=== PATIENT | male | born 1950 | race Caucasian/White ===

== ENCOUNTER 2017-10-16 15:06 | Inpatient (IN) | payer MEDICARE ==
[2017-10-16 15:44] LABS: Hemoglobin 12.7 g/dL (14.0-18.0); Mean Corpuscular HGB CONC 33.8 g/dL (32.0-36.0); Mean Corpuscular Hemoglobin 30.9 pg (27.0-31.0); Mean Corpuscular Volume 91.5 fl (80.0-94.0); Mean Platelet Volume 6.6 fL (7.4-10.4); Platelet Count 318 thou/uL (130-400); RBC Distribution Width 11.1 % (11.5-14.5); Red Blood Cell (RBC) Count 4.11 mill/uL (4.70-6.10); White Blood Cell (WBC) Count 32.2 thou/uL (4.8-10.8)
[2017-10-16 15:55] LABS: ALT (SGPT) 38 U/L (8-55); AST (SGOT) 30 U/L (5-34); Albumin 3.6 g/dL (3.4-4.8); Alkaline Phosphatase 110 U/L (40-150); Anion Gap 18 mmol/L (10-20); BUN (Urea Nitrogen) 55 mg/dL (8.4-25.7); Bilirubin, Total 4.7 mg/dL (0.2-1.2); CK (CPK) 31 U/L (30-200); Calc. Creatinine Clearance 0 mL/min (70-130); Calcium 9.7 mg/dL (7.8-10.44); Carbon Dioxide 24 mmol/L (23-31); Chloride 93 mmol/L (98-107); Estimated GFR-MDRD 18; Globulin 3.6 g/dL (2.4-3.5); Glucose 207 mg/dL (80-115); Lipase 26 U/L (8-78); Potassium 4.2 mmol/L (3.5-5.1); Protein, Total 7.2 g/dL (5.8-8.1); Sodium 131 mmol/L (136-145)
[2017-10-16 15:59] LABS: CKMB 0.7 ng/mL (0-6.6); Troponin I 0.018 ng/mL (< 0.028)
[2017-10-16 16:00] LABS: Band 14 % (5-11); Lymphocytes 1 % (21-51); MDiff Complete? YES; Monocytes 4 % (0-10); Neutrophil 81 % (42-75); PLT Morphology Comment Appears Adequate; Polychromasia SLIGHT = 2-3 cells (100X) (0-2/hpf)
[2017-10-16] MEDS ORDERED: Norepinephrine 8 MG/0.9% NS 250 ML ONE (16:40)
--- NOTE | 2017-10-16 16:55 | RAD ---
PORTABLE UPRIGHT FRONTAL CHEST RADIOGRAPH 10/16/17 COMPARISON: 01/11/15. HISTORY: Atrial fibrillation, rapid ventricular rate, shortness of breath and chest pain. FINDINGS: There is a single lead AICD in place, inserted via left subclavian approach. There is stable prominen ce of the cardiac silhouette. There is no pneumothorax, pleural fluid, lobar consolidation, or alveol ar edema. There is prominent degenerative change involving bilateral glenohumeral joints. There is an asymmetric somewhat irregular areas of nodular density within the mid right lung zone, no t seen on the prior exam measuring approximately 9 mm. Recommend short term followup PA and lateral c hest imaging as this may represent an underlying pulmonary nodule. IMPRESSION: Question irregular 9 mm nodule in mid right lung zone. Results called to Dr. Robison at 4 p.m., 10/16/17. Code CR POS: JASON
[2017-10-16] MEDS ORDERED: Azithromycin 500 MG VIAL ONE (17:03)
[2017-10-16] MEDS ORDERED: Dexamethasone 4 mg/ml Vial ONE (17:18)
[2017-10-16] MEDS ORDERED: Acetaminophen 500 MG TAB ONE (17:38)
--- NOTE | 2017-10-16 18:16 | PDOC.EVN ---
Event Note - Event Note Event Note: [id number] H&P dictated 1. ADAN 2. Septic shock 3. Hypotension 4. Pneumonia 5. Sepsis Plan: see orders
--- NOTE | 2017-10-16 18:27 | RAD ---
PORTABLE UPRIGHT FRONTAL CHEST RADIOGRAPH 10/16/17 at 4:39 p.m. COMPARISON: 10/16/17, 3:44 p.m. HISTORY: Central line placement. FINDINGS: Left sided vascular catheter in place, distal tip overlie the region of the cavoatrial junction. There is a nodular density in the mid left lung zone laterally measuring approximately 9-10 mm as see n on the prior exam. Cardiac silhouette is prominent with a single lead transvenous pacing device in place. IMPRESSION: 1. No pneumothorax following central line placement. 2. 9-10 mm nodular density identified within mid right lung zone, new when compared to 01/11/15. Thus, nonemergent followup chest CT is advised to evaluate for an underlying pulmonary nodule. Code T POS: JASON
[2017-10-16] MEDS ORDERED: Ondansetron HCl/PF 4 MG/2 ML Vial IVP PRN (18:36)
[2017-10-16] MEDS ORDERED: Acetaminophen 325 MG TAB PO PRN (18:36)
[2017-10-16] MEDS ORDERED: Norepinephrine 8 MG/0.9% NS 250 ML IVPB SCH (18:45)
[2017-10-16 19:48] VITALS: BMI 30.4
[2017-10-16 19:54] LABS: Troponin I 0.033 ng/mL (< 0.028)
[2017-10-16] MEDS: Sodium Chloride 0.9% 1,000 ML IV SCH (20:01)
[2017-10-16] MEDS ORDERED: Heparin 5,000 UNITS/ML VIAL SC SCH (21:00)
[2017-10-16 22:28] LABS: Troponin I Less than 0.010 ng/mL (< 0.028)
[2017-10-17 04:27] LABS: Anion Gap 15 mmol/L (10-20); BUN (Urea Nitrogen) 50 mg/dL (8.4-25.7); Calc. Creatinine Clearance 37 mL/min (70-130); Calcium 9.2 mg/dL (7.8-10.44); Carbon Dioxide 23 mmol/L (23-31); Chloride 100 mmol/L (98-107); Estimated GFR-MDRD 27; Glucose 247 mg/dL (80-115); Potassium 3.9 mmol/L (3.5-5.1); Sodium 134 mmol/L (136-145)
[2017-10-17 04:31] LABS: Band 12 % (5-11); Hemoglobin 12.7 g/dL (14.0-18.0); Lymphocytes 5 % (21-51); MDiff Complete? YES; Mean Corpuscular HGB CONC 33.3 g/dL (32.0-36.0); Mean Corpuscular Hemoglobin 30.7 pg (27.0-31.0); Mean Platelet Volume 6.8 fL (7.4-10.4); Monocytes 5 % (0-10); Neutrophil 78 % (42-75); PLT Morphology Comment Appears Adequate; Platelet Count 365 thou/uL (130-400); RBC Distribution Width 11.2 % (11.5-14.5); Red Blood Cell (RBC) Count 4.15 mill/uL (4.70-6.10); White Blood Cell (WBC) Count 24.4 thou/uL (4.8-10.8)
[2017-10-17] MEDS: Sodium Chloride 0.9% 1,000 ML IV SCH ×2 (06:03→21:28)
--- NOTE | 2017-10-17 08:24 | HP ---
DATE OF ADMISSION: 10/16/2017 CHIEF COMPLAINT: Atrial fibrillation, rapid ventricular response. HISTORY OF PRESENT ILLNESS: The patient is a 67-year-old male with a past medical history of hypertension, coronary artery disease, nonischemic cardiomyopathy, V-tach, atrial fibrillation. Initially, he went to the primary care physician because of the fever, chills, cough, and sputum production. In the primary care physician's office, patient was found to be hypotensive and in atrial fibrillation, RVR, so patient was referred to here for further evaluation. The patient complains of cough for the past few days, cough was with sputum production, sputum green in color. Complains of some fever and chills, also complains of chest congestion. Denies any chest pains, palpitations. Denies any nausea, denies vomiting. Upon ER arrival, the patient was found to be hypotensive, had elevated heart rate, so patient was given fluid bolus and I was called for the admission and the patient is currently on Levophed. Patient denies any chest pain, denies any palpation. Denies any dizziness, denies any nausea, denies any vomiting, denies any diarrhea. PAST MEDICAL HISTORY: As per HPI. PAST SURGICAL HISTORY: AICD. ALLERGIES: Reviewed. MEDICATIONS: Reviewed. SOCIAL HISTORY: Denies smoking, denies alcohol, denies any drugs. MEDICATIONS: Reviewed. REVIEW OF SYSTEMS: CONSTITUTIONAL: Positive for fever and chills. EYES: Vision problems. EARS: Denies any hearing loss. NECK: Denies any neck pain. CARDIOVASCULAR: Denies any chest pain, denies palpitations. RESPIRATORY: Positive for dyspnea. Positive for cough and sputum production. CRANIAL NERVE SYSTEM: Denies syncope, denies lightheadedness. PSYCHIATRIC: Denies anxiety. INTEGUMENTARY: Denies any rash. All other review of systems are reviewed and are negative. PHYSICAL EXAMINATION: CONSTITUTIONAL/VITAL SIGNS: At the time of H&P performed, blood pressure is 80/ 50, heart rate 115, and respiratory rate 18. GENERAL: The patient appears tired. HEENT: Anterior nares patent. NECK: Supple, no JVD. CARDIOVASCULAR SYSTEM: S1, S2 present, tachycardic. No murmurs, no rubs, no gallops. RESPIRATORY SYSTEM: Positive for wheezing. Positive for rhonchi. No accessory muscle usage seen ABDOMEN: Soft, nontender, no guarding, no organomegaly, no masses felt. MUSCULOSKELETAL: No edema. INTEGUMENTARY: No obvious rashes seen. PSYCHIATRIC: Mood appropriate at this time. INTEGUMENT: No obvious rash seen LABORATORY DATA: At the time of H&P performed, sodium 131, potassium 4.2, chloride 93, CO2 of 24, BUN of 55, creatinine 3.50, AST 30, ALT 38, troponin 0.018, BNP 190. White count 32.2, hemoglobin 12.7, platelet count is 318. ASSESSMENT AND PLAN: The patient is 67-year-old male. 1. Sepsis. Chest x-ray showed possible infiltrate. Plan to go ahead and do CT chest to evaluate the infiltrate. Plan to start patient on broad spectrum antibiotics. Plan to admit patient to ICU for close monitoring. 2. Hypotension secondary to the septic shock. Continue with iv fluids, consult Pulmonary Critical Care to evaluate the patient. 3. We will go ahead and do blood cultures and we will check serial lactic acid also. 4. Acute kidney injury, it appears secondary to hypotension, possibly acute tubular necrosis. Continue IV fluids, check BMP in a.m. Plan to consult Nephrology to eval the patient. 5. History of congestive heart failure. Monitor I's and O's closely with the patient having history of congestive heart failure. We will need to monitor respiratory status closely, also. 6. Mild hyponatremia. Monitor sodium level closely. The case was discussed in detail with the patient. The patient is going to be admitted to the ICU for close monitoring. BRIDGET
[2017-10-17] MEDS ORDERED: Prevnar 13-Val Conj/PF 0.5 ML SYRINGE IM ONE (09:00)
[2017-10-17] MEDS: guaiFENesin ER 600 MG TAB PO SCH ×2 (09:42→21:26)
--- NOTE | 2017-10-17 11:16 | CON ---
DATE OF CONSULTATION: 10/16/2017 HISTORY OF PRESENT ILLNESS: Mr. Dumont is a 67-year-old male who presented with cough and shortness of breath. This has actually been feeling poorly for many days. 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 He also had multiple family members with viral illnesses recently. He presented with hypotension, cough, and chest congestion. He subsequently has been admitted. He has received central line volume resuscitation, pressures, and antibiotics in the emergency department. PAST MEDICAL HISTORY: 1. Remarkable for atrial fibrillation. He has had an atrial fibrillation ablation done in [place] that resolved, back in atrial fibrillation before he even left the hospital. He never went back for further followup. 2. History of placement of defibrillator in the past. 3. History of methicillin-resistant Staphylococcus aureus in the past. 4. History of hypertension. 5. History of heart catheterization in the past. He has been seen by Dr. Ochoa in the past. 6. History of V-tach in the past which led to an AICD. 7. History of nonischemic cardiomyopathy. 8. History of ejection fraction in 2015 documented to be 10% to 15%. 9. History of knee surgery. SOCIAL HISTORY: He is a nonsmoker, nondrinker. Quit smoking 30 years ago when his [id number] picked up his cigarette and ate it after he put it out. FAMILY HISTORY: Negative for lung disease in early age. ALLERGIES: Reports an allergy to PENICILLIN. REVIEW OF SYSTEMS: Twelve-point is otherwise negative. PHYSICAL EXAMINATION: VITAL SIGNS: Blood pressure was 95 systolic in the emergency department, heart rate was 105 to 110. He is in atrial fibrillation, respiratory rate was in the teens. HEENT: Pupils are equal. Sclerae is anicteric, very pleasant. He is hard of hearing. NECK: Supple, he has no lymphadenopathy. LUNGS: Remarkable for being clear anteriorly. HEART: Irregular rhythm. S1 and S2 are normal. ABDOMEN: Soft and nontender. EXTREMITIES: Without clubbing, cyanosis, or edema. NEUROLOGIC: Nonfocal. LABORATORY AND X-RAY FINDINGS: Chest radiograph maybe shows an early infiltrate in his right middle lung field. Lab work shows white count of 32, manual differential was done, he has 14% bands , hemoglobin 12.7, platelets 318. Electrolytes: Sodium 131, potassium 4.2, chloride 93, bicarbonate 24, BUN 65, creatinine 3.5. IMPRESSION: 1. Probable pneumonia. 2. Intravascular volume depletion. 3. History of nonischemic cardiomyopathy with no recent cardiac followup. 4. History of ventricular tachycardia. 5. History of defibrillator. 6. History of an atrial fibrillation ablation that was unsuccessful. 7. Chronic atrial fibrillation with anticoagulation. PLAN: Antibiotics, repeat radiograph in 1-2 days to see if he has developed an infiltrate, await for culture results and then simplify antibiotics. He should be admitted to the ICU because of his pressor requirements, I do not feel that his hypotension is related to his cardiomyopathy. Critical care time 35 min. BRIDGET
--- NOTE | 2017-10-17 11:31 | CON ---
DATE OF CONSULTATION: 10/16/2017 CONSULTING PHYSICIAN: Dr. Horacio Felix. REASON FOR CONSULTATION: Acute kidney injury. REASON FOR ADMISSION: Shortness of breath and cough. HISTORY OF PRESENT ILLNESS: A 67-year-old male with history of chronic atrial fibrillation, MRSA, hy pertension who came to the hospital with cough and was found to have acute kidney injury. Nephrology is consulted. The patient is hypotensive and is being treated for sepsis. He had some fever, chill s, and ear pain too. PAST MEDICAL HISTORY: Positive for chronic atrial fibrillation, hypertension, CHF. PAST SURGICAL HISTORY: Cardiac catheterization, AICD defibrillator. HOME MEDICATIONS: Carvedilol, Lasix, lisinopril, diltiazem, spironolactone. ALLERGIES: PENICILLIN. SOCIAL HISTORY: Denies smoking, alcohol or illicit drug abuse. FAMILY HISTORY: No history of kidney disease. REVIEW OF SYSTEMS: The following complete review of systems was negative, unless otherwise mentioned in the HPI or below: Constitutional: Weight loss or gain, ability to conduct usual activities. Skin: Rash, itching. Eyes: Double vision, pain. ENT/Mouth: Nose bleeding, neck stiffness, pain, tenderness. Cardiovascular: Palpitations, dyspnea on exertion, orthopnea. Respiratory: Shortness of breath, wheezing, cough, hemoptysis, fever or night sweats. Gastrointestinal: Poor appetite, abdominal pain, heartburn, nausea, vomiting, constipation, or diarr hea. Genitourinary: Urgency, frequency, dysuria, nocturia. Musculoskeletal: Pain, swelling. Neurologic/Psychiatric: Anxiety, depression. Allergy/Immunologic: Skin rash, bleeding tendency. PHYSICAL EXAMINATION: GENERAL: This is a well-built male, in no apparent distress. VITAL SIGNS: Temperature 98.1, pulse , blood pressure 94/65. HEENT: Atraumatic, normocephalic. Oral mucosa is moist. NECK: Supple. CARDIOVASCULAR: S1, S2 heard. Rate and rhythm regular. RESPIRATORY: Clear. ABDOMEN: Soft. MUSCULOSKELETAL: 1+ edema. DERMATOLOGIC: No skin rash. NEUROLOGIC: Alert and awake. PSYCHIATRIC: Mood and affect normal. LABORATORY DATA: Hemoglobin is 12.7, potassium 4.2, BUN is 65, creatinine 3.5. ASSESSMENT AND PLAN: 1. Acute kidney injury on chronic kidney disease, most likely ischemic , agree with holding nep hrotoxins and hydration as tolerated. Keep systolic more than 90. 2. Hyponatremia. 3. Hypochloremia. 4. Leukocytosis, most likely from infection. 5. Anemia. 6. Hypertension, stable. 7. Currently, hypotensive. 8. Continue supportive care. Continue antibiotics. Follow up cultures and avoid nephrotoxins. We will follow. Thank you for the consult. Monitor vancomycin level.
[2017-10-17] MEDS ORDERED: Cosyntropin 250 MCG VIAL SLOW IVP SCH (11:45)
--- NOTE | 2017-10-17 12:00 | PRG ---
DATE OF SERVICE: 10/17/2017 Mr. Dumont says he feels better. PHYSICAL EXAMINATION: VITAL SIGNS; Heart rate 103, blood pressure 140/94, respiratory 25, oximetry is 100%. LUNGS: Lungs are clear. HEART: Regular rhythm. ABDOMEN: Abdomen is soft and nontender. He is still on a low dose of Levophed. His intake and output is positive 318. LABORATORY: White count 24.4 He has 12% bands today. Hemoglobin is 12.7, platelets are 165,000. S odium 134, potassium 3.9, chloride 100, bicarbonate 23, BUN 50, creatinine 2.41 down from 3.5 yesterd ay. IMPRESSION: 1. Probable pneumonia. 2. Intravascular volume depletion with an elevated creatinine that is improving with hydration. He had been sick quite some time before he was brought to the emergency room. He has underlying ischemic cardiomyopathy and a defibrillator in place. He has not seen Dr. Jen cohen in quite some time. Because of his health care ([facility]) he was going to [place] for care. He i s no longer going down to [place], so we I have recommended reconsulting Cardiology while he is here. An echocardiogram has been ordered. He will continue with broad antimicrobial therapy until we hav e 48 hour negative cultures. He will remain in the ICU until he is off pressors for 12-24 hours, so hopefully we can discharge him out of the ICU in the morning.
--- NOTE | 2017-10-17 12:01 | PRG ---
DATE OF SERVICE: 10/17/2017 Cortisol was run this morning and his level was only 8. In the setting of pressors, this may be balta cative of relative adrenal insufficiency. I would simply recommend doing an ACTH stimulation test an d continue current care.
[2017-10-17 12:21] LABS: Vancomycin, Random 6.7 ug/mL (See Comment)
--- NOTE | 2017-10-17 13:57 | PDOC.PN ---
- Subjective Encounter Start Date: 10/17/17 Encounter Start Time: 12:45 Subjective: awake, sob+, no chest pain -: feels better - Objective MAR Reviewed: Yes Vital Signs & Weight: Vital Signs (12 hours) Temp Pulse Resp Pulse Ox 10/17/17 12:00 96.7 F L 10/17/17 08:00 97.5 F L 100 18 100 Weight Weight 188 lb 14.978 oz Most Recent Monitor Data Heart Rate from ECG 101 NIBP 104/73 NIBP BP-Mean 85 Respiration from ECG 25 SpO2 93 I&O: 10/16/17 10/17/17 10/18/17 06:59 06:59 06:59 Intake Total 1218 353 Output Total 900 650 Balance 318 -297 Result Diagrams: 10/17/17 04:08 10/17/17 04:08 Phys Exam - Physical Examination HEENT: PERRLA, moist MMs Neck: no JVD, supple Respiratory: no wheezing rhonchi++ Cardiovascular: no significant murmur, irregular Gastrointestinal: soft, non-tender, positive bowel sounds Musculoskeletal: no edema, pulses present Neurological: non-focal, moves all 4 limbs Psychiatric: A&O x 3 Dx/Plan (1) Septic shock Code(s): A41.9 - SEPSIS, UNSPECIFIED ORGANISM; R65.21 - SEVERE SEPSIS WITH SEPTIC SHOCK Status: Acute (2) PNA (pneumonia) Code(s): J18.9 - PNEUMONIA, UNSPECIFIED ORGANISM Status: Suspected Qualifiers: Pneumonia type: due to unspecified organism (3) ADAN (acute kidney injury) Code(s): N17.9 - ACUTE KIDNEY FAILURE, UNSPECIFIED Status: Acute (4) DM type 2 (diabetes mellitus, type 2) Status: Chronic Qualifiers: Diabetes mellitus 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 insulin use: without jail use Diabetes mellitus complication status: with unspecified complications Qualified Code(s) : E11.8 - Type 2 diabetes mellitus with unspecified complications (5) Demand ischemia of myocardium Code(s): I24.8 - OTHER FORMS OF ACUTE ISCHEMIC HEART DISEASE Status: Acute (6) Cardiomyopathy Code(s): I42.9 - CARDIOMYOPATHY, UNSPECIFIED Status: Suspected Qualifiers: Cardiomyopathy type: unspecified Qualified Code(s): I42.9 - Cardiomyopathy , unspecified - Plan is on vanc and levaquin -: gentle iv hydration -: is on tapering levophed -: wbc down to 24 from 32 -: nebs prn, creatinine around 2.4, early ambulation once BP stabilizes * . Review of Systems - Medications/Allergies Allergies/Adverse Reactions: Allergies Allergy/AdvReac Type Severity Reaction Status Date / Time Penicillins Allergy Verified 10/16/17 20:56 Medications: Current Medications Acetaminophen (Tylenol) 650 mg PO Q4H PRN PRN Reason: Headache/Fever or Pain Hydrocodone Bitart/Acetaminophen ([place] 5/325) 1 tab PO Q4H PRN PRN Reason: Moderate Pain (4-6) Guaifenesin (Mucinex) 600 mg PO Q12HR YOLANDA Last Admin: 10/17/17 09:42 Dose: 600 mg Levofloxacin 500 mg/ Device 100 mls @ 100 mls/hr IVPB Q48H YOLANDA Norepinephrine Bitartrate (Levophed) 250 mls @ 0 mls/hr IVPB INF YOLANDA; Titrate PRN Reason: Protocol Last Admin: 10/17/17 03:00 Dose: 250 mls Sodium Chloride (Normal Saline 0.9%) 1,000 mls @ 75 mls/hr IV .[id number] YOLANDA Last Admin: 10/17/17 06:03 Dose: 1,000 mls Vancomycin HCl 1 gm/ Device 200 mls @ 200 mls/hr IVPB 1400 YOLANDA Ondansetron HCl (Zofran) 4 mg IVP Q6H PRN PRN Reason: Nausea/Vomiting Sodium Chloride (Flush - Normal Saline) 10 ml IVF Q12HR YOLANDA Last Admin: 10/17/17 08:15 Dose: 10 ml Sodium Chloride (Flush - Normal Saline) 10 ml IVF PRN PRN PRN Reason: Saline Flush
--- NOTE | 2017-10-17 14:15 | CON ---
DATE OF CONSULTATION: 10/17/2017 CARDIOLOGY CONSULTATION REASON FOR CONSULTATION: Cardiomyopathy. HISTORY OF PRESENT ILLNESS: Mr. Dumont is a very pleasant 67-year-old white gentleman who comes to the hospital for shortness of breath and cough. He was diagnosed with possibly pneumonia and admitt ed to the ICU as his blood pressure was low and was needing Levophed to maintain his blood pressures normal. He used to see Dr. Ochoa. Last time he saw him was in 2014. Because of insurance, he h ad to switch to have adjuster and inspector in [place] who saw him for the last 2-3 years. 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 He also has a history of atrial fibrillation and atrial tachycardia in the past. Apparently, he had an atrial fibrillation ablation in [place] sometime in last 3 years and went back into atrial fibrill ation soon after and has not had a repeat ablation since. Cardiology being consulted today for guanakito nuation of care as he has since switched his insurance and is ready to come back to this area and wou ld like to continue to see Dr. Ochoa. Currently, he is being treated with antibiotics for his possible pneumonia. PAST MEDICAL HISTORY: 1. History of atrial fibrillation, as above. 2. AICD placement. 3. Methicillin-resistant Staphylococcus aureus in the recent past. 4. Nonischemic cardiomyopathy, EF of about 15%-20%. 5. Hypertension. 6. VT in the past. 7. History of knee surgery. OUTPATIENT MEDICATIONS: Include, 1. Aldactone 25 mg a day. 2. Xarelto 20 mg a day. 3. Lisinopril 2.5 mg a day. 4. Lasix 20 mg b.i.d. 5. Diltiazem 120 mg b.i.d. 6. Carvedilol 12.5 mg b.i.d. ALLERGIES: PENICILLIN. SOCIAL HISTORY: No alcohol, tobacco or drugs. He did quit smoking 30 years ago. FAMILY HISTORY: Noncontributory. REVIEW OF SYSTEMS: A 12 point review of systems negative, unless stated in the history of present il lness. PHYSICAL EXAMINATION: VITAL SIGNS: Temperature 96.7, pulse between 90 and 108, blood pressure 111/77, respiration rate 21, satting 100% on 2 liters nasal cannula. GENERAL: Awake, alert, oriented x3, in no distress. HEENT: Normocephalic, atraumatic. NECK: Supple. LUNGS: Clear anteriorly. ABDOMEN: Soft, positive bowel sounds. EXTREMITIES: No edema. SKIN: Warm and dry. LABORATORY DATA AND IMAGING DATA: Laboratory work was reviewed. White count of 32, on admission minal n to 24. Hemoglobin of 12.7, hematocrit of 37, platelet count of 318. Chemistry with BUN of 50, cre atinine 2.41. Sodium 134, potassium 3.9, troponin has been 0.01, 0.03, 0.01. CK-MB of 0.7. BNP was 190. His creatinine has improved from 3.5 down to 2.4, random vancomycin level was normal. Chest x-ray on admission showed no evidence of heart failure. There was irregular nodule in the mid right lung zone. Repeat chest x-ray showed no pneumothorax after central line was placed and the same right mid lung z one nodular density was seen. ASSESSMENT AND PLAN: 1. Nonischemic cardiomyopathy. 2. Presence of an automated implantable cardioverter-defibrillator. 3. Atrial fibrillation with rapid ventricular response: Currently on no AV parth blocking agents gi adryan his low blood pressure and possibly due to pneumonia. 4. Possible pneumonia. PLAN: 1. Currently, his heart rate is what we would catalogue as leniently rate controlled, which should b e adequate in the setting of having pneumonia and being hypotensive. Most likely this is being drive n by the fact that he is on Levophed drip and that he cannot be on any AV parth blocking agents given hypotension. I would not start amiodarone at this time for rate control. I do not think he needs d igoxin just yet. We will just leave this if he becomes more tachycardic and we are unable to control it. Once he comes off of his Levophed, we will plan on restarting some of his oral beta juvencio and calcium channel juvencio to try to rate control him a little bit better. 2. I agree with IV fluids. 3. Echocardiogram to be done. Thank you for letting us to participate in the care of your patient and we will follow with the patie nt.
[2017-10-17] MEDS: Vancomycin HCl 1 GM in Premix Bag 1 BAG IVPB SCH (14:20)
[2017-10-17] MEDS ORDERED: Carvedilol 6.25 MG TAB PO SCH ×2 (21:00→21:30)
--- NOTE | 2017-10-18 00:32 | PRG ---
DATE OF SERVICE: 10/17/2017 SUBJECTIVE: Patient was seen and examined at bedside and overnight events noted. Patient denies any shortness of breath or chest pain or palpitation. No history of nausea or vomiting or diarrhea or f ever or chills or cramps. OBJECTIVE: GENERAL: This is a well-built male, in no acute distress. VITAL SIGNS: Temperature 96.3, pulse 107, respirations 20, blood pressure 105/60. HEENT: Atraumatic, normocephalic, Oral mucosa is moist. NECK: Supple. CARDIOVASCULAR: S1, S2 heard. Rate and rhythm regular. RESPIRATORY: Clear to auscultation. GASTROINTESTINAL: Abdomen is soft. MUSCULOSKELETAL: No tenderness, no edema. DERMATOLOGIC: No skin rash. NEUROLOGIC: Alert and awake and oriented X3. No focal neurologic deficits. Moving all the extremit ies. PSYCHIATRIC: Mood and affect normal. LABORATORY DATA: Hemoglobin is still 7, potassium is 3.9, BUN 50, creatinine is 2.4 from 3.5. ASSESSMENT AND PLAN: 1. Acute kidney injury. Renal function is much better, most likely from volume depletion and sepsis . Continue supportive care. 2. Hyponatremia. 3. Hypokalemia. 4. Anemia. 5. Hypertension. Overall, renal function is better. Continue current antibiotics.
--- NOTE | 2017-10-18 09:14 | PRG ---
DATE OF SERVICE: 10/17/2017 PULMONARY AND CRITICAL CARE PROGRESS NOTE SUBJECTIVE: The patient is doing much better. He wants to go home. PHYSICAL EXAMINATION: VITAL SIGNS: Temperature 96.5, pulse 113, blood pressure 105/52, O2 saturation 96%, 24-hour intake 2 982, output 1975. HEENT: Unremarkable. NECK: No JVD. LUNGS: He has crackles in left base, right side clear. CARDIAC: S1 and S2 regular. ABDOMEN: Soft. EXTREMITIES: No edema. LABORATORY DATA: No labs were done today. ASSESSMENT: 1. Pneumonia. 2. Sepsis. 3. History of nonischemic cardiomyopathy. 4. History of ventricular tachycardia. 5. Chronic atrial fibrillation. PLAN: 1. He can be transferred out to the floor. 2. Recheck labs tomorrow. 3. Continue antibiotics - waiting for the true identity of the gram positive cocci from blood cultur es at admission. Once that is determined, then we can probably stop the vancomycin.
--- NOTE | 2017-10-18 09:33 | RAD ---
PORTABLE CHEST: Date: 10/18/17 PROVIDED CLINICAL HISTORY: Respiratory insufficiency. FINDINGS: Comparison with 10/16/17. Cardiac silhouette remains enlarged. Left subclavian cardiac pacing device and left subclavian centra l line are again noted. Nodular parenchymal opacity involving the right mid lung zone is again noted. Lungs appear otherwise clear. There is no pleural fluid or pneumothorax apparent. IMPRESSION: Stable radiographic appearance of chest. POS: [facility]
[2017-10-18] MEDS: Carvedilol 6.25 MG TAB PO SCH ×2 (09:46→20:17)
[2017-10-18] MEDS: guaiFENesin ER 600 MG TAB PO SCH ×2 (09:47→20:17)
[2017-10-18] MEDS: Rivaroxaban 10 MG TAB PO SCH (09:47)
[2017-10-18 09:53] LABS: Anion Gap 14 mmol/L (10-20); BUN (Urea Nitrogen) 39 mg/dL (8.4-25.7); Calc. Creatinine Clearance 59 mL/min (70-130); Calcium 8.8 mg/dL (7.8-10.44); Carbon Dioxide 23 mmol/L (23-31); Chloride 105 mmol/L (98-107); Estimated GFR-MDRD 46; Glucose 138 mg/dL (80-115); Potassium 4.4 mmol/L (3.5-5.1); Sodium 138 mmol/L (136-145)
[2017-10-18] MEDS ORDERED: Insulin Regular 300 UNITS/3 ML VIAL SC PRN (10:59)
[2017-10-18] MEDS ORDERED: Dextrose 5% in Water 1,000 ML IV PRN (10:59)
[2017-10-18] MEDS ORDERED: Dextrose 50% Abboject 50 ML SYRINGE SLOW IVP PRN (10:59)
[2017-10-18] MEDS ORDERED: Vancomycin HCl 1.5 GM in Sodium Chloride 0.9% 250 ML 300 ML IVPB SCH ×2 (11:00→14:00)
[2017-10-18 11:27] LABS: Hemoglobin 11.9 g/dL (14.0-18.0); Mean Corpuscular HGB CONC 33.7 g/dL (32.0-36.0); Mean Corpuscular Hemoglobin 31.3 pg (27.0-31.0); Mean Corpuscular Volume 92.8 fl (80.0-94.0); Mean Platelet Volume 6.4 fL (7.4-10.4); Platelet Count 342 thou/uL (130-400); RBC Distribution Width 11.4 % (11.5-14.5)
[2017-10-18 11:52] LABS: Band 2 % (5-11); Eosinophils 1 % (0-10); Lymphocytes 14 % (21-51); MDiff Complete? YES; Monocytes 7 % (0-10); Neutrophil 76 % (42-75); PLT Morphology Comment Appears Adequate; RBC Morphology Normal
[2017-10-18 13:56] LABS: Vancomycin, Trough 8.7 ug/mL
[2017-10-18] MEDS: Sodium Chloride 0.9% 1,000 ML IV SCH (14:53)
--- NOTE | 2017-10-18 15:39 | PDOC.PN ---
- Subjective Encounter Start Date: 10/18/17 Encounter Start Time: 08:50 Subjective: awake, no sob, feels better - Objective MAR Reviewed: Yes Vital Signs & Weight: Vital Signs (12 hours) Temp Pulse Resp BP Pulse Ox 10/18/17 14:56 105 H 15 10/18/17 11:00 97.7 F 10/18/17 10:47 113 H 23 H 10/18/17 09:46 95/72 10/18/17 08:00 96.5 F L 117 H 22 H 96 10/18/17 07:00 96.5 F L 10/18/17 06:20 95 16 10/18/17 04:00 97.9 F Weight Weight 188 lb 14.978 oz Most Recent Monitor Data Heart Rate from ECG 111 NIBP 103/66 NIBP BP-Mean 72 Respiration from ECG 21 SpO2 96 I&O: 10/17/17 10/18/17 10/19/17 06:59 06:59 06:59 Intake Total 1218 2982 440 Output Total 900 1975 2500 Balance 318 1007 -2060 Result Diagrams: 10/18/17 11:11 10/18/17 09:07 Additional Labs: Accuchecks 10/18/17 11:09 POC Glucose 89 Phys Exam - Physical Examination HEENT: PERRLA, moist MMs Neck: no JVD, supple Respiratory: no wheezing, no rales Cardiovascular: RRR, no significant murmur Gastrointestinal: soft, non-tender, positive bowel sounds Musculoskeletal: no edema, pulses present Neurological: non-focal, moves all 4 limbs Psychiatric: normal affect, A&O x 3 Dx/Plan (1) Septic shock Code(s): A41.9 - SEPSIS, UNSPECIFIED ORGANISM; R65.21 - SEVERE SEPSIS WITH SEPTIC SHOCK Status: Acute (2) PNA (pneumonia) Code(s): J18.9 - PNEUMONIA, UNSPECIFIED ORGANISM Status: Suspected Qualifiers: Pneumonia type: due to unspecified organism (3) ADAN (acute kidney injury) Code(s): N17.9 - ACUTE KIDNEY FAILURE, UNSPECIFIED Status: Acute (4) DM type 2 (diabetes mellitus, type 2) Status: Chronic Qualifiers: Diabetes mellitus long term care pharmacist insulin use: without detention use Diabetes mellitus complication status: with unspecified complications Qualified Code(s) : E11.8 - Type 2 diabetes mellitus with unspecified complications (5) Demand ischemia of myocardium Code(s): I24.8 - OTHER FORMS OF ACUTE ISCHEMIC HEART DISEASE Status: Acute (6) Cardiomyopathy Code(s): I42.9 - CARDIOMYOPATHY, UNSPECIFIED Status: Suspected Qualifiers: Cardiomyopathy type: unspecified Qualified Code(s): I42.9 - Cardiomyopathy , unspecified - Plan on levaq and vanc -: gentle hydration -: off levophed, maintaining BP -: oriented well, is asymptomatic -: creatinine is 1.5, on xarelto and small dose coreg * . Review of Systems - Medications/Allergies Allergies/Adverse Reactions: Allergies Allergy/AdvReac Type Severity Reaction Status Date / Time Penicillins Allergy Verified 10/16/17 20:56 Medications: Current Medications Acetaminophen (Tylenol) 650 mg PO Q4H PRN PRN Reason: Headache/Fever or Pain Hydrocodone Bitart/Acetaminophen ([place] 5/325) 1 tab PO Q4H PRN PRN Reason: Moderate Pain (4-6) Albuterol/Ipratropium (Duoneb) 3 ml NEB [id number] [facility] Last Admin: 10/18/17 14:56 Dose: 3 ml Albuterol/Ipratropium (Duoneb) 3 ml NEB Q4H PRN PRN Reason: SOB &/or Wheezing Last Admin: 10/17/17 17:14 Dose: 3 ml Carvedilol (Coreg) 6.25 mg PO BID [facility] Last Admin: 10/18/17 09:46 Dose: 6.25 mg Dextrose/Water (Dextrose 50%) 25 gm SLOW IVP PRN PRN PRN Reason: Hypoglycemia Glucagon (Glucagon) 1 mg IM PRN PRN PRN Reason: Hypoglycemia Guaifenesin (Mucinex) 600 mg PO Q12HR [facility] Last Admin: 10/18/17 09:47 Dose: 600 mg Levofloxacin 500 mg/ Device 100 mls @ 100 mls/hr IVPB Q48H [facility] Dextrose/Water (D5w) 1,000 mls @ 0 mls/hr IV .Q0M PRN; As Directed PRN Reason: Hypoglycemia Vancomycin HCl 1.5 gm/ Sodium (Chloride) 300 mls @ 200 mls/hr IVPB 1400 [facility] Last Admin: 10/18/17 14:54 Dose: 300 mls Insulin Human Regular (Humulin R) 0 units SC .MILD SLIDING SCALE PRN PRN Reason: Mild Correctional Scale Ondansetron HCl (Zofran) 4 mg IVP Q6H PRN PRN Reason: Nausea/Vomiting Rivaroxaban (Xarelto) 20 mg PO DAILY [facility] Last Admin: 10/18/17 09:47 Dose: 20 mg Sodium Chloride (Flush - Normal Saline) 10 ml IVF Q12HR [facility] Last Admin: 10/18/17 09:48 Dose: 10 ml Sodium Chloride (Flush - Normal Saline) 10 ml IVF PRN PRN PRN Reason: Saline Flush
[2017-10-18] MEDS: Vancomycin HCl 1 GM in Premix Bag 1 BAG IVPB SCH (15:52)
--- NOTE | 2017-10-18 16:09 | PRG ---
DATE OF SERVICE: 10/18/2017 SUBJECTIVE: Patient was seen and examined at bedside and overnight events noted. Patient denies any shortness of breath or chest pain or palpitation. No history of nausea or vomiting or diarrhea or fev er or chills or cramps. OBJECTIVE: General: This is a well-built female in no apparent distress. Vital Signs: Temperature 97.7, pulse 108, respiratory rate 21, and blood pressure 103/66. HEENT: Atraumatic, normocephalic, Oral mucosa is moist. Neck: Supple. Cardiovascular: S1 and S2 heard. Rate and rhythm regular. Respiratory: Clear to auscultation. Gastrointestinal: Abdomen is soft. Musculoskeletal: No tenderness. No edema. Dermatologic: No skin rash. Neurologic: Alert and awake and oriented X3. No focal neurologic deficits. Moving all the extremitie s. Psychiatric: Mood and affect normal. LABORATORY DATA: Potassium is 4.4, BUN is 39, and creatinine is 1.5. ASSESSMENT AND PLAN: 1. Acute kidney injury on chronic kidney disease, stage 3. Renal function with good significant imp rovement. 2. Hyponatremia, much better. 3. Hypokalemia, replace anemia. 4. Edema. 5. Hypertension, stable. 6. Renal function is much better. Avoid nephrotoxins. We will follow.
--- NOTE | 2017-10-18 17:35 | PDOC.CTH ---
Cardiology Progress Note - Subjective He is doing well. His breathing is fine, he is off pressors and BP is borderline low. - Objective Vital Signs Temp Pulse Resp BP Pulse Ox 10/18/17 16:00 97.8 F 10/18/17 14:56 105 H 15 10/18/17 11:00 97.7 F 10/18/17 10:47 113 H 23 H 10/18/17 09:46 95/72 10/18/17 08:00 96.5 F L 117 H 22 H 96 10/18/17 07:00 96.5 F L 10/18/17 06:20 95 16 Weight 188 lb 14.978 oz 10/17/17 10/18/17 10/19/17 06:59 06:59 06:59 Intake Total 1218 2982 1520 Output Total 900 1975 4000 Balance 318 1007 -2480 - Physical Examination General/Neuro: alert & oriented x3, NAD Neck: no JVD present Lungs: CTA, unlabored respirations Heart: other: (Irreg) Abdomen: NT/ND Extremities: other: (no edema) - Telemetry Telemetry Rhythm: Afib HR 90-110 - Labs Result Diagrams: 10/18/17 11:11 10/18/17 09:07 Troponin/CKMB CK-MB (CK-2) 0.7 ng/mL (0-6.6) 10/16/17 15:23 Troponin I Less than 0.010 ng/mL (< 0.028) 10/16/17 22:00 - Assessment/Plan 1. Non ischemic CM. 2. AICD in place 3. Afib RVR, lenient rate control for now. 4. Possible pneumonia 5. hypotension PLAN: - Continue low dose coreg for now. - Lenient rate control, should get better once clinically more stable. If he becomes more tachycardic and it drops his BP he may need a Cardioversion. - Awaiting records from [facility].
[2017-10-19 04:23] LABS: #Eosinphils 0.1 thou/uL (0.0-0.7); #Lymphocytes 1.9 thou/uL (1.20-3.40); #Monocytes 1.1 thou/uL (0.11-0.59); #Neutrophils 9.5 thou/uL (1.40-6.50); %Eosinophils 0.7 % (0.0-10.0); %Lymphocytes 15.2 % (21.0-51.0); %Monocytes 8.8 % (0.0-10.0); %Neutrophils 75.2 % (42.0-75.0); Hemoglobin 11.9 g/dL (14.0-18.0); Mean Corpuscular HGB CONC 33.7 g/dL (32.0-36.0); Mean Corpuscular Hemoglobin 31.3 pg (27.0-31.0); Mean Corpuscular Volume 92.8 fl (80.0-94.0); Mean Platelet Volume 6.5 fL (7.4-10.4); Platelet Count 345 thou/uL (130-400); RBC Distribution Width 11.4 % (11.5-14.5); Red Blood Cell (RBC) Count 3.79 mill/uL (4.70-6.10); White Blood Cell (WBC) Count 12.6 thou/uL (4.8-10.8)
[2017-10-19 04:35] LABS: Anion Gap 11 mmol/L (10-20); BUN (Urea Nitrogen) 33 mg/dL (8.4-25.7); Calc. Creatinine Clearance 70 mL/min (70-130); Calcium 8.9 mg/dL (7.8-10.44); Carbon Dioxide 26 mmol/L (23-31); Chloride 102 mmol/L (98-107); Estimated GFR-MDRD 56; Glucose 81 mg/dL (80-115); Potassium 3.9 mmol/L (3.5-5.1); Sodium 135 mmol/L (136-145)
[2017-10-19] MEDS: Rivaroxaban 10 MG TAB PO SCH (09:23)
[2017-10-19] MEDS: Carvedilol 6.25 MG TAB PO SCH ×2 (09:23→20:23)
[2017-10-19] MEDS: guaiFENesin ER 600 MG TAB PO SCH ×2 (09:23→20:17)
--- NOTE | 2017-10-19 09:41 | PRG ---
DATE OF SERVICE: 10/19/2017 SUBJECTIVE: The patient is doing well, had no complaints. OBJECTIVE: VITAL SIGNS: Temperature 98.2, pulse 112, respirations 18, O2 saturation 98%, blood pressure 91/60. HEENT: Unremarkable. NECK: No JVD. CHEST: Clear without wheezing. CARDIAC: S1 and S2 regular. ABDOMEN: Soft. EXTREMITIES: No edema. LABORATORY DATA: White blood cell count 12.6, hematocrit 35.2, platelet count 345. Sodium 135, pota ssium 3.9, chloride 102, CO2 is 26, BUN 33, creatinine 1.2, glucose 81. ASSESSMENT: 1. Pneumonia. 2. Nonischemic cardiomyopathy with ejection fraction 25-30%. 3. History of ventricular tachycardia. 4. Chronic atrial fibrillation. PLAN: 1. From my standpoint, the vancomycin can be stopped. Levaquin should be able to treat micrococcus alone. Continue cardiac management per Dr. Colby. 2. Hopefully, discharge to home soon.
--- NOTE | 2017-10-19 11:59 | PRG ---
DATE OF SERVICE: 10/19/2017 SUBJECTIVE: Patient was seen and examined at bedside and overnight events noted. Patient denies any shortness of breath or chest pain or palpitation. No history of nausea or vomiting or diarrhea or f ever or chills or cramps. OBJECTIVE: GENERAL: This is a well-built male in no apparent distress. VITAL SIGNS: Temperature 98.2, pulse 122, respiratory 18, blood pressure 91/54. HEENT: Atraumatic, normocephalic. Oral mucosa is moist. NECK: Supple. CARDIOVASCULAR: S1, S2 heard. Rate and rhythm regular. RESPIRATORY: Clear to auscultation. GASTROINTESTINAL: Abdomen is soft. MUSCULOSKELETAL: No tenderness, no edema. DERMATOLOGIC: No skin rash. NEUROLOGIC: Alert and awake and oriented x3. No focal neurologic deficits. Moving all the extremit ies. PSYCHIATRIC: Mood and affect normal. LABORATORY DATA: Potassium 3.9, BUN 33, creatinine is 1.2. ASSESSMENT AND PLAN: 1. Acute kidney injury on chronic kidney disease. Renal function is stable and back to almost carole l. 2. Hyponatremia, better. 3. Hypokalemia, replaced. 4. Edema. 5. Hypertension. Monitor. 6. Renal function is stable. I will sign off. Please call back with any questions.
--- NOTE | 2017-10-19 13:45 | PDOC.PN ---
- Subjective Encounter Start Date: 10/19/17 Encounter Start Time: 12:35 Subjective: feels better, no sob - Objective MAR Reviewed: Yes Vital Signs & Weight: Vital Signs (12 hours) Temp Pulse Resp BP Pulse Ox 10/19/17 12:00 98.1 F 10/19/17 11:10 122 H 25 H 10/19/17 09:23 98/58 L 10/19/17 08:00 98.2 F 112 H 18 98 10/19/17 03:53 99 10/19/17 03:52 98.2 F 10/19/17 02:20 120 H 20 100 Weight Weight 188 lb 14.978 oz Most Recent Monitor Data Heart Rate from ECG 102 NIBP 81/53 NIBP BP-Mean 65 Respiration from ECG 20 SpO2 98 I&O: 10/18/17 10/19/17 10/20/17 06:59 06:59 06:59 Intake Total 2982 2060 840 Output Total 1975 5100 1305 Balance 1007 -3040 -465 Result Diagrams: 10/19/17 03:25 10/19/17 03:25 Additional Labs: Accuchecks 10/18/17 10/18/17 22:18 16:34 POC Glucose 87 90 Phys Exam - Physical Examination HEENT: PERRLA, moist MMs Neck: no JVD, supple Respiratory: no wheezing, no rales Cardiovascular: RRR, no significant murmur Gastrointestinal: soft, non-tender, positive bowel sounds Musculoskeletal: no edema, pulses present Neurological: non-focal, moves all 4 limbs Psychiatric: A&O x 3 Dx/Plan (1) Septic shock Code(s): A41.9 - SEPSIS, UNSPECIFIED ORGANISM; R65.21 - SEVERE SEPSIS WITH SEPTIC SHOCK Status: Acute (2) PNA (pneumonia) Code(s): J18.9 - PNEUMONIA, UNSPECIFIED ORGANISM Status: Suspected Qualifiers: Pneumonia type: due to unspecified organism (3) ADNA (acute kidney injury) Code(s): N17.9 - ACUTE KIDNEY FAILURE, UNSPECIFIED Status: Acute (4) DM type 2 (diabetes mellitus, type 2) Status: Chronic Qualifiers: Diabetes mellitus fpc insulin use: without fpc use Diabetes mellitus complication status: with unspecified complications Qualified Code(s) : E11.8 - Type 2 diabetes mellitus with unspecified complications (5) Demand ischemia of myocardium Code(s): I24.8 - OTHER FORMS OF ACUTE ISCHEMIC HEART DISEASE Status: Acute (6) Cardiomyopathy Code(s): I42.9 - CARDIOMYOPATHY, UNSPECIFIED Status: Chronic Qualifiers: Cardiomyopathy type: unspecified Qualified Code(s): I42.9 - Cardiomyopathy , unspecified Comment: ef of 30% - Plan is on levaquin, bld cs 1/2 might be contaminant -: xarelto -: wbc down to 12k from 32 -: off iv fluids and pressors -: tx to tele, to amb as tolerated * . Review of Systems - Medications/Allergies Allergies/Adverse Reactions: Allergies Allergy/AdvReac Type Severity Reaction Status Date / Time Penicillins Allergy Verified 10/16/17 20:56 Medications: Current Medications Acetaminophen (Tylenol) 650 mg PO Q4H PRN PRN Reason: Headache/Fever or Pain Hydrocodone Bitart/Acetaminophen ([employer] 5/325) 1 tab PO Q4H PRN PRN Reason: Moderate Pain (4-6) Albuterol/Ipratropium (Duoneb) 3 ml NEB [id number] [facility] Last Admin: 10/19/17 11:10 Dose: 3 ml Albuterol/Ipratropium (Duoneb) 3 ml NEB Q4H PRN PRN Reason: SOB &/or Wheezing Last Admin: 10/17/17 17:14 Dose: 3 ml Carvedilol (Coreg) 6.25 mg PO BID [facility] Last Admin: 10/19/17 09:23 Dose: 6.25 mg Dextrose/Water (Dextrose 50%) 25 gm SLOW IVP PRN PRN PRN Reason: Hypoglycemia Glucagon (Glucagon) 1 mg IM PRN PRN PRN Reason: Hypoglycemia Guaifenesin (Mucinex) 600 mg PO Q12HR [facility] Last Admin: 10/19/17 09:23 Dose: 600 mg Levofloxacin 500 mg/ Device 100 mls @ 100 mls/hr IVPB Q48H [facility] Last Admin: 10/18/17 20:17 Dose: 100 mls Dextrose/Water (D5w) 1,000 mls @ 0 mls/hr IV .Q0M PRN; As Directed PRN Reason: Hypoglycemia Insulin Human Regular (Humulin R) 0 units SC .MILD SLIDING SCALE PRN PRN Reason: Mild Correctional Scale Ondansetron HCl (Zofran) 4 mg IVP Q6H PRN PRN Reason: Nausea/Vomiting Rivaroxaban (Xarelto) 20 mg PO DAILY [facility] Last Admin: 10/19/17 09:23 Dose: 20 mg Sodium Chloride (Flush - Normal Saline) 10 ml IVF Q12HR [facility] Last Admin: 10/19/17 09:25 Dose: 10 ml Sodium Chloride (Flush - Normal Saline) 10 ml IVF PRN PRN PRN Reason: Saline Flush
--- NOTE | 2017-10-19 17:15 | PDOC.CTH ---
Cardiology Progress Note - Subjective Doing well. No chest pain, tightness, pressure, SOB. His BP remains borderline low. - Objective Vital Signs Temp Pulse Resp BP Pulse Ox 10/19/17 16:42 97.9 F 73 18 97 10/19/17 15:53 98.4 F 10/19/17 12:00 98.1 F 10/19/17 11:10 122 H 25 H 10/19/17 09:23 98/58 L 10/19/17 08:00 98.2 F 112 H 18 98 Weight 188 lb 14.978 oz 10/18/17 10/19/17 10/20/17 06:59 06:59 06:59 Intake Total 2982 2060 840 Output Total 5654 8904 6687 Balance 4555 -2756 -8773 - Physical Examination General/Neuro: alert & oriented x3, NAD Neck: no JVD present Lungs: CTA, unlabored respirations Heart: RRR Abdomen: NT/ND Extremities: other: (no edema.) - Telemetry Telemetry Rhythm: NSR - Labs Result Diagrams: 10/19/17 03:25 10/19/17 03:25 Troponin/CKMB CK-MB (CK-2) 0.7 ng/mL (0-6.6) 10/16/17 15:23 Troponin I Less than 0.010 ng/mL (< 0.028) 10/16/17 22:00 - Assessment/Plan 1. Non ischemic CM, EF at 25-30% 2. AICD in place 3. Afib RVR, lenient rate control for now. 4. Possible pneumonia 5. Hypotension, mostly resolved. PLAN: - Continue low dose coreg for now. - Lenient rate control, should get better once clinically more stable. If he becomes more tachycardic and it drops his BP he may need a Cardioversion. - On xarelto for stroke prophylaxis. - Will add digoxin for better rate control.
[2017-10-19] MEDS: HYDROcodone/Acetaminophen 5/325 mg Tablet PO PRN (20:17)
[2017-10-20] MEDS: HYDROcodone/Acetaminophen 5/325 mg Tablet PO PRN ×2 (00:19→22:46)
[2017-10-20] MEDS ORDERED: Ketorolac Tromethamine 30 MG/ML VIAL IVP SCH ×2 (02:30→23:00)
[2017-10-20 06:17] LABS: #Eosinphils 0.4 thou/uL (0.0-0.7); #Lymphocytes 1.8 thou/uL (1.20-3.40); #Monocytes 1.3 thou/uL (0.11-0.59); #Neutrophils 13.9 thou/uL (1.40-6.50); %Basophils 0.2 % (0.0-1.0); %Lymphocytes 10.4 % (21.0-51.0); %Monocytes 7.6 % (0.0-10.0); %Neutrophils 79.8 % (42.0-75.0); Hemoglobin 11.7 g/dL (14.0-18.0); Mean Corpuscular HGB CONC 33.2 g/dL (32.0-36.0); Mean Corpuscular Hemoglobin 30.8 pg (27.0-31.0); Mean Corpuscular Volume 92.8 fl (80.0-94.0); Platelet Count 371 thou/uL (130-400); RBC Distribution Width 11.3 % (11.5-14.5); Red Blood Cell (RBC) Count 3.81 mill/uL (4.70-6.10); White Blood Cell (WBC) Count 17.5 thou/uL (4.8-10.8)
[2017-10-20 06:28] LABS: Anion Gap 11 mmol/L (10-20); BUN (Urea Nitrogen) 28 mg/dL (8.4-25.7); Calc. Creatinine Clearance 58 mL/min (70-130); Carbon Dioxide 30 mmol/L (23-31); Chloride 97 mmol/L (98-107); Estimated GFR-MDRD 46; Glucose 108 mg/dL (80-115); Potassium 4.4 mmol/L (3.5-5.1); Sodium 134 mmol/L (136-145)
[2017-10-20] MEDS: guaiFENesin ER 600 MG TAB PO SCH ×2 (08:25→21:10)
[2017-10-20] MEDS: Digoxin 0.125 MG TAB PO SCH (08:25)
[2017-10-20] MEDS: Rivaroxaban 10 MG TAB PO SCH (08:25)
[2017-10-20] MEDS: Carvedilol 6.25 MG TAB PO SCH (10:15)
--- NOTE | 2017-10-20 10:51 | PDOC.PN ---
- Subjective Encounter Start Date: 10/20/17 Encounter Start Time: 09:15 Subjective: no sob, feels better - Objective MAR Reviewed: Yes Vital Signs & Weight: Vital Signs (12 hours) Temp Pulse Resp Pulse Ox 10/20/17 10:12 91 18 94 L 10/20/17 08:25 101 H 10/20/17 07:30 98.1 F 89 18 96 10/20/17 06:11 101 H 18 95 10/19/17 22:52 94 L Weight Weight 188 lb 14.978 oz Most Recent Monitor Data Heart Rate from ECG 115 NIBP 110/49 NIBP BP-Mean 64 Respiration from ECG 15 SpO2 98 I&O: 10/19/17 10/20/17 10/21/17 06:59 06:59 06:59 Intake Total 2060 1440 Output Total 5100 3655 Balance -3040 -8615 Result Diagrams: 10/20/17 06:05 10/20/17 06:05 Phys Exam - Physical Examination HEENT: PERRLA, moist MMs Neck: no JVD, supple Respiratory: no wheezing, no rales Cardiovascular: RRR, no significant murmur Gastrointestinal: soft, non-tender, positive bowel sounds Musculoskeletal: no edema, pulses present has pedal edema Neurological: non-focal, moves all 4 limbs Psychiatric: A&O x 3 Dx/Plan (1) Septic shock Code(s): A41.9 - SEPSIS, UNSPECIFIED ORGANISM; R65.21 - SEVERE SEPSIS WITH SEPTIC SHOCK Status: Resolved (2) PNA (pneumonia) Code(s): J18.9 - PNEUMONIA, UNSPECIFIED ORGANISM Status: Suspected Qualifiers: Pneumonia type: due to unspecified organism (3) ADAN (acute kidney injury) Code(s): N17.9 - ACUTE KIDNEY FAILURE, UNSPECIFIED Status: Acute (4) DM type 2 (diabetes mellitus, type 2) Status: Chronic Qualifiers: Diabetes mellitus terminal operator insulin use: without nursing home use Diabetes mellitus complication status: with unspecified complications Qualified Code(s) : E11.8 - Type 2 diabetes mellitus with unspecified complications (5) Demand ischemia of myocardium Code(s): I24.8 - OTHER FORMS OF ACUTE ISCHEMIC HEART DISEASE Status: Acute (6) Cardiomyopathy Code(s): I42.9 - CARDIOMYOPATHY, UNSPECIFIED Status: Chronic Qualifiers: Cardiomyopathy type: unspecified Qualified Code(s): I42.9 - Cardiomyopathy , unspecified Comment: ef of 30% - Plan unclear etiology for sepsis, likely pna -: sbp around 80's, hold all antihtn meds for now -: has poor ef as well -: pt is not symptomatic and is comfortably sitting in chair -: wbc around 17k, is on levaq, digoxin and xarelto * will get CT retroperitoneal bleed protocol, stool occult. * Hb is stable around 11g. Review of Systems - Medications/Allergies Allergies/Adverse Reactions: Allergies Allergy/AdvReac Type Severity Reaction Status Date / Time Penicillins Allergy Verified 10/16/17 20:56 Medications: Current Medications Acetaminophen (Tylenol) 650 mg PO Q4H PRN PRN Reason: Headache/Fever or Pain Hydrocodone Bitart/Acetaminophen ([place] 5/325) 1 tab PO Q4H PRN PRN Reason: Moderate Pain (4-6) Last Admin: 10/20/17 00:19 Dose: 1 tab Albuterol/Ipratropium (Duoneb) 3 ml NEB [id number] [facility] Last Admin: 10/20/17 10:12 Dose: 3 ml Albuterol/Ipratropium (Duoneb) 3 ml NEB Q4H PRN PRN Reason: SOB &/or Wheezing Last Admin: 10/17/17 17:14 Dose: 3 ml Dextrose/Water (Dextrose 50%) 25 gm SLOW IVP PRN PRN PRN Reason: Hypoglycemia Digoxin (Lanoxin) 0.125 mg PO DAILY [facility] Last Admin: 10/20/17 08:25 Dose: 0.125 mg Glucagon (Glucagon) 1 mg IM PRN PRN PRN Reason: Hypoglycemia Guaifenesin (Mucinex) 600 mg PO Q12HR [facility] Last Admin: 10/20/17 08:25 Dose: 600 mg Levofloxacin 500 mg/ Device 100 mls @ 100 mls/hr IVPB Q48H [facility] Last Admin: 10/18/17 20:17 Dose: 100 mls Dextrose/Water (D5w) 1,000 mls @ 0 mls/hr IV .Q0M PRN; As Directed PRN Reason: Hypoglycemia Insulin Human Regular (Humulin R) 0 units SC .MILD SLIDING SCALE PRN PRN Reason: Mild Correctional Scale Ondansetron HCl (Zofran) 4 mg IVP Q6H PRN PRN Reason: Nausea/Vomiting Rivaroxaban (Xarelto) 20 mg PO DAILY [facility] Last Admin: 10/20/17 08:25 Dose: 20 mg Sodium Chloride (Flush - Normal Saline) 10 ml IVF Q12HR [facility] Last Admin: 10/20/17 08:25 Dose: 10 ml Sodium Chloride (Flush - Normal Saline) 10 ml IVF PRN PRN PRN Reason: Saline Flush
--- NOTE | 2017-10-20 11:31 | PRG ---
DATE OF SERVICE: 10/20/2017 SUBJECTIVE: A 67-year-old gentleman being seen for acute kidney injury. The patient denies any naus ea, vomiting or chest pain. PHYSICAL EXAMINATION: GENERAL: Patient is awake, alert. VITAL SIGNS: Afebrile, pulse 75, breathing at 16, blood pressure was 130/70. OBJECTIVE: See above. Awake, alert, in no acute distress. GENERAL APPEARANCE AND MENTAL STATUS: Fair. HEAD/NECK: Normocephalic. Atraumatic. EYES: EOMI. No deformity. EARS: Clear. No ulcers. NOSE: Intact. No lesions. MOUTH: Clear. No discharge. THROAT: Clear. No exudate. LUNGS: Clear. No crackles. CARDIAC: S1, S2. No rub. ABDOMEN: Benign. BS+. GENITALIA/RECTUM: [place] absent. BACK/EXTREMITIES: Edema 0+ Ulcer- NEUROLOGICAL: Alert and motor intact. SKIN: Rash- Bruise- LYMPHATICS: Edema- Ulcer- LABORATORY: Creatinine was 1.5 and remained stable. ASSESSMENT AND RECOMMENDATIONS: 1. Acute kidney injury with chronic kidney disease stage 3, stable. 2. Hypertension, stable. 3. Anemia, stable. 4. Hyponatremia, stable. 5. Medications based on glomerular filtration rate are appropriate. No indication for dialysis at this time. I will sign off.
--- NOTE | 2017-10-20 14:18 | CT ---
CT ABDOMEN AND PELVIS WITHOUT IV CONTRAST: INDICATIONS: Rule out bleed, sepsis, hypotension. COMPARISON: CT abdomen and pelvis with contrast dated 01/11/2015. FINDINGS: There is reticular nodularity within the posterolateral aspect of the right lower lobe. There is sub segmental volume loss within both lower lobes. Unopacified liver, spleen, pancreas, and adrenal glands appear unremarkable. The complex cystic lesi on involving the superior pole of the right kidney is stable, measuring 2.1 x 2.8 cm. The cyst invol ving the left mid kidney, measuring 1.5 cm, is stable. There is resolution of the previously seen wall thickening involving the gallbladder. There is a par aumbilical fat-containing hernia. There is a normal appendix in the right lower quadrant. The prost ate is mildly enlarged. There are fat-containing inguinal hernias bilaterally. Unopacified large and small bowel reveal no definite acute abnormality. There is a mild amount of re tained stool within the colon. The small bowel has a normal caliber. There are mild vascular calcifications involving the abdominal aorta. No definite lymphadenopathy or free fluid is evident. There is scattered degenerative and osteoarthritic change IMPRESSION: 1. No definite acute abnormality within the limitations of this examination within the abdomen and p audi. 2. Reticulonodular area in the right lower lobe, which can be seen with respiratory bronchiolitis. 3. Stable complex cystic lesion involving the superior pole of the right kidney, measuring up to 2.8 cm. Stable left renal cyst. 4. Other chronic findings as above. POS: [facility]
--- NOTE | 2017-10-20 14:31 | PRG ---
DATE OF SERVICE: 10/20/2017 Mr. Dumont says he feels great. He is in no distress. PHYSICAL EXAMINATION: VITAL SIGNS: He is afebrile. Oximetry is 95 on room air, heart rate is 85, respiratory rate is 18, blood pressure is in the 80s. Intake and output is recorded as negative 2215. He is still on IV ant ibiotics. I have switched him to p.o. antibiotics. LABORATORY: His creatinine is 1.5. 500 mg of Levaquin a day should be appropriate. IMPRESSION: 1. Pneumonia with clinical sepsis. 2. ? Relative adrenal insufficiency his ACTH stimulation test showed that he has adequate adrenal re serve. 3. Acute on chronic kidney disease. Clinically, dramatically improved. 4. History of hypertension. PLAN: Continue supportive care. ADDENDUM: Other problems included chronic cardiomyopathy status post defibrillator placement with an ejection fraction of now 25%-30% and chronic atrial fibrillation. An abdomen and pelvis CT was apparently ordered by Dr. Zafar and infiltrate in his right lower lung field can be seen on the CT. I will simply recommend following his radiograph as an outpatient.
--- NOTE | 2017-10-20 17:52 | PRG ---
DATE OF SERVICE: 10/20/2017 SUBJECTIVE: Mr. Dumont is feeling better. No chest pain, pressure, shortness of breath present. He continues to be mildly hypotensive. Blood pressure continues to be in the upper 80s. OBJECTIVE: VITAL SIGNS: Blood pressure is 89/56, pulse 103, temperature afebrile. LUNGS: Clear to auscultation. CARDIAC: Irregular, irregular. ABDOMEN: Soft, nontender, nondistended. EXTREMITIES: No edema. IMPRESSION: 1. Sepsis with positive blood culture for micrococcus. 2. Nonischemic cardiomyopathy. 3. Status post implantable cardioverter defibrillator. RECOMMENDATIONS: Continue antibiotic therapy. Hold beta juvencio therapy and MARILU inhibitor therapy. Continue low dose digoxin.
[2017-10-21 06:20] LABS: #Eosinphils 0.6 thou/uL (0.0-0.7); #Monocytes 0.8 thou/uL (0.11-0.59); #Neutrophils 13.7 thou/uL (1.40-6.50); %Basophils 0.2 % (0.0-1.0); %Eosinophils 3.4 % (0.0-10.0); %Lymphocytes 11.7 % (21.0-51.0); %Monocytes 4.8 % (0.0-10.0); %Neutrophils 79.9 % (42.0-75.0); Hemoglobin 11.4 g/dL (14.0-18.0); Mean Corpuscular HGB CONC 33.2 g/dL (32.0-36.0); Mean Corpuscular Hemoglobin 31.4 pg (27.0-31.0); Mean Corpuscular Volume 94.8 fl (80.0-94.0); Mean Platelet Volume 6.3 fL (7.4-10.4); Platelet Count 376 thou/uL (130-400); RBC Distribution Width 11.4 % (11.5-14.5); Red Blood Cell (RBC) Count 3.62 mill/uL (4.70-6.10); White Blood Cell (WBC) Count 17.2 thou/uL (4.8-10.8)
[2017-10-21 06:42] LABS: Anion Gap 10 mmol/L (10-20); BUN (Urea Nitrogen) 25 mg/dL (8.4-25.7); Calc. Creatinine Clearance 62 mL/min (70-130); Calcium 8.9 mg/dL (7.8-10.44); Carbon Dioxide 31 mmol/L (23-31); Chloride 99 mmol/L (98-107); Estimated GFR-MDRD 49; Glucose 97 mg/dL (80-115); Sodium 136 mmol/L (136-145)
[2017-10-21] MEDS ORDERED: Sodium Chloride 0.9% 1,000 ML IV SCH (07:15)
--- NOTE | 2017-10-21 08:20 | PRG ---
DATE OF SERVICE: 10/21/2017 SUBJECTIVE: Mr. Dumont is doing well. He has no current symptoms. He continues to be hypotensive . After reviewing his I's and O's, it appears he has had a -5 liters noted over the last 2 days. No fevers or chills present. PHYSICAL EXAMINATION: VITAL SIGNS: Blood pressure 87/59, pulse 100, temperature 97.7. LUNGS: Clear to auscultation. CARDIAC: Irregular, irregular. ABDOMEN: Soft, nontender, nondistended. EXTREMITIES: No edema. IMPRESSION: 1. Pneumonia. 2. Acute on chronic systolic heart failure. 3. Atrial fibrillation. RECOMMENDATIONS: 1. One liter of fluid over 2 hours. 2. Hold beta juvencio therapy and MARILU inhibitor therapy and ARB due to hypotension. 3. Continue antibiotic treatment.
[2017-10-21] MEDS: Rivaroxaban 10 MG TAB PO SCH (08:50)
[2017-10-21] MEDS: Digoxin 0.125 MG TAB PO SCH (08:50)
[2017-10-21] MEDS: guaiFENesin ER 600 MG TAB PO SCH ×2 (08:50→20:12)
[2017-10-21] MEDS: Colchicine 0.3 MG TAB PO SCH ×2 (10:33→20:11)
[2017-10-21] MEDS: Sodium Chloride 0.9% 1,000 ML IV SCH ×2 (10:34→15:33)
--- NOTE | 2017-10-21 10:39 | PDOC.PN ---
- Subjective Encounter Start Date: 10/21/17 Encounter Start Time: 09:00 Subjective: is reading a book on bed -: no sob or chest pain -: had his breakfast this am - Objective MAR Reviewed: Yes Vital Signs & Weight: Vital Signs (12 hours) Temp Pulse Resp BP Pulse Ox 10/21/17 08:50 100 10/21/17 08:00 97.7 F 100 18 96 10/21/17 07:56 97.7 F 100 18 87/59 L 96 10/21/17 07:20 110 H 14 10/21/17 04:00 97.6 F 97 16 78/62 L 97 10/21/17 03:13 96 16 96 10/20/17 23:53 98.3 F 105 H 16 88/55 L 95 Weight Weight 188 lb 14.978 oz Most Recent Monitor Data Heart Rate from ECG 115 NIBP 110/49 NIBP BP-Mean 64 Respiration from ECG 15 SpO2 98 I&O: 10/20/17 10/21/17 10/22/17 06:59 06:59 06:59 Intake Total 1440 1440 Output Total 3655 850 Balance -2215 590 Result Diagrams: 10/21/17 05:24 10/21/17 05:24 Phys Exam - Physical Examination HEENT: PERRLA, moist MMs Neck: no JVD, supple Respiratory: no wheezing, no rales Cardiovascular: RRR, no significant murmur Gastrointestinal: soft, non-tender, no distention, positive bowel sounds Musculoskeletal: no edema, pulses present Neurological: non-focal, moves all 4 limbs Dx/Plan (1) Septic shock Code(s): A41.9 - SEPSIS, UNSPECIFIED ORGANISM; R65.21 - SEVERE SEPSIS WITH SEPTIC SHOCK Status: Resolved (2) PNA (pneumonia) Code(s): J18.9 - PNEUMONIA, UNSPECIFIED ORGANISM Status: Suspected Qualifiers: Pneumonia type: due to unspecified organism (3) ADAN (acute kidney injury) Code(s): N17.9 - ACUTE KIDNEY FAILURE, UNSPECIFIED Status: Resolved (4) DM type 2 (diabetes mellitus, type 2) Status: Chronic Qualifiers: 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 Diabetes mellitus complication status: with unspecified complications Qualified Code(s) : E11.8 - Type 2 diabetes mellitus with unspecified complications (5) Demand ischemia of myocardium Code(s): I24.8 - OTHER FORMS OF ACUTE ISCHEMIC HEART DISEASE Status: Acute (6) Cardiomyopathy Code(s): I42.9 - CARDIOMYOPATHY, UNSPECIFIED Status: Chronic Qualifiers: Cardiomyopathy type: unspecified Qualified Code(s): I42.9 - Cardiomyopathy , unspecified Comment: ef of 30% - Plan is on iv fluids, watch for vol overload -: still hypotensive with sbp around 80's -: is on levaquin, dig and xarelto -: colchicine for gout -: mobilize as tolerated * . pt is normally on coreg 12.5 bid, lasix, spironolactone, cardizem all of which are held and still hypotensive. CT abd done showed no signs of retroperitoneal bleed Review of Systems - Medications/Allergies Allergies/Adverse Reactions: Allergies Allergy/AdvReac Type Severity Reaction Status Date / Time Penicillins Allergy Verified 10/16/17 20:56 Medications: Current Medications Acetaminophen (Tylenol) 650 mg PO Q4H PRN PRN Reason: Headache/Fever or Pain Hydrocodone Bitart/Acetaminophen ([place] 5/325) 1 tab PO Q4H PRN PRN Reason: Moderate Pain (4-6) Last Admin: 10/20/17 22:46 Dose: 1 tab Albuterol/Ipratropium (Duoneb) 3 ml NEB [id number] [facility] Last Admin: 10/21/17 07:20 Dose: 3 ml Albuterol/Ipratropium (Duoneb) 3 ml NEB Q4H PRN PRN Reason: SOB &/or Wheezing Last Admin: 10/17/17 17:14 Dose: 3 ml Colchicine (Colcrys) 0.3 mg PO BID [facility] Last Admin: 10/21/17 10:33 Dose: 0.3 mg Dextrose/Water (Dextrose 50%) 25 gm SLOW IVP PRN PRN PRN Reason: Hypoglycemia Digoxin (Lanoxin) 0.125 mg PO DAILY [facility] Last Admin: 10/21/17 08:50 Dose: 0.125 mg Glucagon (Glucagon) 1 mg IM PRN PRN PRN Reason: Hypoglycemia Guaifenesin (Mucinex) 600 mg PO Q12HR [facility] Last Admin: 10/21/17 08:50 Dose: 600 mg Dextrose/Water (D5w) 1,000 mls @ 0 mls/hr IV .Q0M PRN; As Directed PRN Reason: Hypoglycemia Sodium Chloride (Normal Saline 0.9%) 1,000 mls @ 100 mls/hr IV .Q10H [facility] Last Admin: 10/21/17 10:34 Dose: 1,000 mls Insulin Human Regular (Humulin R) 0 units SC .MILD SLIDING SCALE PRN PRN Reason: Mild Correctional Scale Levofloxacin (Levaquin) 500 mg PO 0600 [facility] Last Admin: 10/21/17 06:26 Dose: 500 mg Ondansetron HCl (Zofran) 4 mg IVP Q6H PRN PRN Reason: Nausea/Vomiting Rivaroxaban (Xarelto) 20 mg PO DAILY [facility] Last Admin: 10/21/17 08:50 Dose: 20 mg Sodium Chloride (Flush - Normal Saline) 10 ml IVF Q12HR [facility] Last Admin: 10/21/17 08:50 Dose: Not Given Sodium Chloride (Flush - Normal Saline) 10 ml IVF PRN PRN PRN Reason: Saline Flush
[2017-10-21] MEDS: HYDROcodone/Acetaminophen 5/325 mg Tablet PO PRN ×2 (15:36→20:11)
[2017-10-21] MEDS ORDERED: Ibuprofen 200 MG TAB PO SCH (18:15)
[2017-10-22] MEDS: HYDROcodone/Acetaminophen 5/325 mg Tablet PO PRN ×2 (00:12→04:59)
[2017-10-22] MEDS: Sodium Chloride 0.9% 1,000 ML IV SCH ×2 (03:23→13:57)
[2017-10-22 06:04] LABS: #Eosinphils 0.6 thou/uL (0.0-0.7); #Lymphocytes 2.1 thou/uL (1.20-3.40); #Monocytes 0.6 thou/uL (0.11-0.59); #Neutrophils 10.8 thou/uL (1.40-6.50); %Basophils 0.2 % (0.0-1.0); %Eosinophils 4.4 % (0.0-10.0); %Lymphocytes 14.8 % (21.0-51.0); %Monocytes 4.5 % (0.0-10.0); %Neutrophils 76.1 % (42.0-75.0); Hemoglobin 11.2 g/dL (14.0-18.0); Mean Corpuscular HGB CONC 32.1 g/dL (32.0-36.0); Mean Corpuscular Hemoglobin 30.9 pg (27.0-31.0); Mean Corpuscular Volume 96.2 fl (80.0-94.0); Mean Platelet Volume 5.9 fL (7.4-10.4); Platelet Count 450 thou/uL (130-400); RBC Distribution Width 11.6 % (11.5-14.5); Red Blood Cell (RBC) Count 3.62 mill/uL (4.70-6.10); White Blood Cell (WBC) Count 14.1 thou/uL (4.8-10.8)
[2017-10-22 06:15] LABS: Anion Gap 11 mmol/L (10-20); BUN (Urea Nitrogen) 20 mg/dL (8.4-25.7); Calc. Creatinine Clearance 63 mL/min (70-130); Calcium 8.9 mg/dL (7.8-10.44); Carbon Dioxide 28 mmol/L (23-31); Chloride 100 mmol/L (98-107); Estimated GFR-MDRD 50; Glucose 99 mg/dL (80-115); Potassium 4.1 mmol/L (3.5-5.1); Sodium 135 mmol/L (136-145)
--- NOTE | 2017-10-22 07:26 | PDOC.PN ---
- Subjective Encounter Start Date: 10/22/17 Encounter Start Time: 08:15 Subjective: nsg notes rev, VS rev, SBP in 80's consistently, pt sitting at EOB, no new -: c/o, feels cough/ congestion/ fevers/ chills is better. still c/o b/l LE -: tenderness, RLE more so than LLE, c/o "i dont know whats going on!" - Objective Vital Signs & Weight: Vital Signs (12 hours) Temp Pulse Resp BP Pulse Ox 10/22/17 06:37 80 14 10/22/17 03:30 79 16 96 10/22/17 03:22 97.6 F 90 16 86/60 L 96 10/21/17 23:31 98.3 F 84 16 87/51 L 93 L 10/21/17 22:13 96 16 96 10/21/17 20:00 98.5 F 95 16 94 L 10/21/17 19:44 98.5 F 95 16 84/56 L 94 L Weight Weight 188 lb 14.978 oz Most Recent Monitor Data Heart Rate from ECG 115 NIBP 110/49 NIBP BP-Mean 64 Respiration from ECG 15 SpO2 98 I&O: 10/21/17 10/22/17 10/23/17 06:59 06:59 06:59 Intake Total 1440 2700 Output Total 850 2100 Balance 590 600 Result Diagrams: 10/22/17 05:30 10/22/17 05:30 Phys Exam - Physical Examination Constitutional: NAD HEENT: PERRLA, moist MMs, sclera anicteric, oral pharynx no lesions Respiratory: no wheezing, no rales, no rhonchi, clear to auscultation bilateral generalized coarseness throughout RML RLL Cardiovascular: RRR, no significant murmur, no rub Gastrointestinal: soft, non-tender, no distention, positive bowel sounds 2+ b/l pitting pedal edema, slightly ttp RLE/ foot throughout Neurological: moves all 4 limbs Psychiatric: normal affect, A&O x 3 Dx/Plan - Plan * 67M hx CAD who initially went to his PCP with CC productive cough + fevers/ chills and was redirected for inpt adm for hypotention and afib with RVR * * PNA w/ initial sepsis * sepsis resolved * levaquin 500mg PO daily * appreciate pulmonary c/s * leukocytosis persistent - currently considered reactive, closely monitor * repeat XR on o/p basis per pulmonary * adequate oxygenation on RA * BCx + contaminant afib * rate ctrlled, digoxin * apprec card c/s * A/C with xarelto CHF with EF 25-30% - acute on chronic CHF * holding ARB, MARILU, BB 2/2 hypotension * rec'd 2L IVF slowly ovn * monitor hypotension, check orthostatic VS elevated Cr * reasonable UOP * monitor I/O and repeat BMP constipation start bowel regimen continue to monitor congestion and ear discomfort "popping" in ear when he blows nose ocean nasal spray and continue to monitor diet: cardiac activity: out of bed as zhao dvt ppx Review of Systems - Medications/Allergies Allergies/Adverse Reactions: Allergies Allergy/AdvReac Type Severity Reaction Status Date / Time Penicillins Allergy Verified 10/16/17 20:56 Medications: Current Medications Acetaminophen (Tylenol) 650 mg PO Q4H PRN PRN Reason: Headache/Fever or Pain Hydrocodone Bitart/Acetaminophen ([place] 5/325) 1 tab PO Q4H PRN PRN Reason: Moderate Pain (4-6) Last Admin: 10/22/17 04:59 Dose: 1 tab Albuterol/Ipratropium (Duoneb) 3 ml NEB [id number] [facility] Last Admin: 10/22/17 06:37 Dose: 3 ml Albuterol/Ipratropium (Duoneb) 3 ml NEB Q4H PRN PRN Reason: SOB &/or Wheezing Last Admin: 10/17/17 17:14 Dose: 3 ml Colchicine (Colcrys) 0.3 mg PO BID [facility] Last Admin: 10/21/17 20:11 Dose: 0.3 mg Dextrose/Water (Dextrose 50%) 25 gm SLOW IVP PRN PRN PRN Reason: Hypoglycemia Digoxin (Lanoxin) 0.125 mg PO DAILY [facility] Last Admin: 10/21/17 08:50 Dose: 0.125 mg Glucagon (Glucagon) 1 mg IM PRN PRN PRN Reason: Hypoglycemia Guaifenesin (Mucinex) 600 mg PO Q12HR [facility] Last Admin: 10/21/17 20:12 Dose: 600 mg Dextrose/Water (D5w) 1,000 mls @ 0 mls/hr IV .Q0M PRN; As Directed PRN Reason: Hypoglycemia Sodium Chloride (Normal Saline 0.9%) 1,000 mls @ 100 mls/hr IV .Q10H [facility] Last Admin: 10/22/17 03:23 Dose: 1,000 mls Insulin Human Regular (Humulin R) 0 units SC .MILD SLIDING SCALE PRN PRN Reason: Mild Correctional Scale Levofloxacin (Levaquin) 500 mg PO 0600 [facility] Last Admin: 10/22/17 04:59 Dose: 500 mg Ondansetron HCl (Zofran) 4 mg IVP Q6H PRN PRN Reason: Nausea/Vomiting Rivaroxaban (Xarelto) 20 mg PO DAILY [facility] Last Admin: 10/21/17 08:50 Dose: 20 mg Sodium Chloride (Flush - Normal Saline) 10 ml IVF Q12HR [facility] Last Admin: 10/21/17 20:14 Dose: Not Given Sodium Chloride (Flush - Normal Saline) 10 ml IVF PRN PRN PRN Reason: Saline Flush
[2017-10-22] MEDS ORDERED: Milk Of Magnesia 30 ML UDCUP PO PRN (08:14)
[2017-10-22] MEDS ORDERED: Sodium Chloride 0.65% Nasal 44 ML BOT EA NARE PRN (08:14)
[2017-10-22] MEDS: guaiFENesin ER 600 MG TAB PO SCH ×2 (08:41→20:32)
[2017-10-22] MEDS: Colchicine 0.3 MG TAB PO SCH ×2 (08:41→20:31)
[2017-10-22] MEDS: Rivaroxaban 10 MG TAB PO SCH (08:41)
[2017-10-22] MEDS: Digoxin 0.125 MG TAB PO SCH (08:41)
[2017-10-23] MEDS: Sodium Chloride 0.9% 1,000 ML IV SCH (01:15)
[2017-10-23] MEDS: HYDROcodone/Acetaminophen 5/325 mg Tablet PO PRN (06:06)
[2017-10-23 07:00] LABS: Anion Gap 12 mmol/L (10-20); BUN (Urea Nitrogen) 14 mg/dL (8.4-25.7); Calc. Creatinine Clearance 68 mL/min (70-130); Calcium 9.1 mg/dL (7.8-10.44); Carbon Dioxide 28 mmol/L (23-31); Chloride 104 mmol/L (98-107); Estimated GFR-MDRD 55; Glucose 95 mg/dL (80-115); Potassium 4.9 mmol/L (3.5-5.1); Sodium 139 mmol/L (136-145)
[2017-10-23] MEDS: Digoxin 0.125 MG TAB PO SCH (08:07)
[2017-10-23] MEDS: guaiFENesin ER 600 MG TAB PO SCH ×2 (08:07→20:05)
[2017-10-23] MEDS: Rivaroxaban 10 MG TAB PO SCH (08:07)
[2017-10-23] MEDS: Colchicine 0.3 MG TAB PO SCH ×2 (08:07→20:04)
[2017-10-23 09:04] LABS: Hemoglobin 11.4 g/dL (14.0-18.0); Mean Corpuscular HGB CONC 31.7 g/dL (32.0-36.0); Mean Corpuscular Hemoglobin 30.7 pg (27.0-31.0); Mean Corpuscular Volume 96.9 fl (80.0-94.0); Mean Platelet Volume 5.9 fL (7.4-10.4); Platelet Count 462 thou/uL (130-400); RBC Distribution Width 11.5 % (11.5-14.5); Red Blood Cell (RBC) Count 3.73 mill/uL (4.70-6.10); White Blood Cell (WBC) Count 11.3 thou/uL (4.8-10.8)
[2017-10-23 09:16] LABS: Band 15 % (5-11); Eosinophils 2 % (0-10); Lymphocytes 18 % (21-51); MDiff Complete? YES; Metamyelocyte 1 % (0-0); Monocytes 5 % (0-10); Myelocyte 1 % (0-0); Neutrophil 56 % (42-75); PLT Morphology Comment Appears Increased; Polychromasia SLIGHT = 2-3 cells (100X) (0-2/hpf); Reactive Lymphocytes 2 % (0-10)
[2017-10-23] MEDS ORDERED: traMADol HCl 50 MG TAB PO PRN (10:27)
[2017-10-23] MEDS: Sodium Chloride 0.65% Nasal 44 ML BOT EA NARE SCH ×2 (15:01→20:06)
--- NOTE | 2017-10-23 15:46 | PDOC.PN ---
- Subjective Encounter Start Date: 10/23/17 Encounter Start Time: 10:00 Subjective: nsg notes rev, yee ovn, still has b/l feet pain but it feels better -: also still c/o R ear fullness, no fevers, chills - Objective Vital Signs & Weight: Vital Signs (12 hours) Temp Pulse Pulse Pulse Pulse Pulse Resp 10/23/17 11:35 90 16 10/23/17 11:34 98.2 F 69 18 10/23/17 10:22 53 L 50 L 89 87 10/23/17 09:06 98 10/23/17 08:45 87 15 10/23/17 08:07 73 10/23/17 08:00 98.2 F 87 15 10/23/17 07:28 98.2 F 92 18 10/23/17 03:55 98.2 F 89 16 BP BP BP BP BP BP Pulse Ox 10/23/17 11:35 10/23/17 11:34 88/54 L 99 10/23/17 10:22 83/53 L 80/63 L 84/61 L 112/65 10/23/17 09:06 107/63 88/67 L 10/23/17 08:45 98 10/23/17 08:07 10/23/17 08:00 10/23/17 07:28 89/53 L 98 10/23/17 03:55 111/64 97 Weight Weight 188 lb 14.978 oz Most Recent Monitor Data Heart Rate from ECG 115 NIBP 110/49 NIBP BP-Mean 64 Respiration from ECG 15 SpO2 98 I&O: 10/22/17 10/23/17 10/24/17 06:59 06:59 06:59 Intake Total 2700 2900 Output Total 2100 2625 Balance 600 275 Result Diagrams: 10/23/17 06:09 10/23/17 06:09 Phys Exam - Physical Examination Constitutional: NAD HEENT: PERRLA, moist MMs, sclera anicteric Respiratory: no wheezing, no rales, no rhonchi, clear to auscultation bilateral Cardiovascular: RRR, no significant murmur Gastrointestinal: soft, non-tender, positive bowel sounds Musculoskeletal: pulses present Neurological: moves all 4 limbs Psychiatric: normal affect, A&O x 3 Dx/Plan - Plan * * 67M hx CAD who initially went to his PCP with CC productive cough + fevers/ chills and was redirected for inpt adm for hypotention and afib with RVR * * PNA w/ initial sepsis * sepsis resolved * levaquin 500mg PO daily * appreciate pulmonary c/s * leukocytosis persistent - currently considered reactive, closely monitor, has been improving * adequate oxygenation on RA * BCx + contaminant afib * rate ctrlled, digoxin * apprec card c/s * A/C with xarelto CHF with EF 25-30% - acute on chronic CHF * holding ARB, MARILU, BB 2/2 hypotension * rec'd 2L IVF, d/c IVF today * monitor hypotension, check orthostatic VS * ambulate and monitor for symptoms elevated Cr * reasonable UOP * monitor I/O and repeat BMP constipation, resolved congestion and ear discomfort "popping" in ear when he blows nose ocean nasal spray and continue to monitor diet: cardiac activity: out of bed as zhao dvt ppx Review of Systems - Medications/Allergies Allergies/Adverse Reactions: Allergies Allergy/AdvReac Type Severity Reaction Status Date / Time Penicillins Allergy Verified 10/16/17 20:56 Medications: Current Medications Acetaminophen (Tylenol) 650 mg PO Q4H PRN PRN Reason: Headache/Fever or Pain Hydrocodone Bitart/Acetaminophen ([place] 5/325) 1 tab PO Q4H PRN PRN Reason: Moderate Pain (4-6) Last Admin: 10/23/17 06:06 Dose: 1 tab Albuterol/Ipratropium (Duoneb) 3 ml NEB [id number] [facility] Last Admin: 10/23/17 14:48 Dose: 3 ml Albuterol/Ipratropium (Duoneb) 3 ml NEB Q4H PRN PRN Reason: SOB &/or Wheezing Last Admin: 10/17/17 17:14 Dose: 3 ml Colchicine (Colcrys) 0.3 mg PO BID [facility] Last Admin: 10/23/17 08:07 Dose: 0.3 mg Dextrose/Water (Dextrose 50%) 25 gm SLOW IVP PRN PRN PRN Reason: Hypoglycemia Digoxin (Lanoxin) 0.125 mg PO DAILY [facility] Last Admin: 10/23/17 08:07 Dose: 0.125 mg Glucagon (Glucagon) 1 mg IM PRN PRN PRN Reason: Hypoglycemia Guaifenesin (Mucinex) 600 mg PO Q12HR [facility] Last Admin: 10/23/17 08:07 Dose: 600 mg Dextrose/Water (D5w) 1,000 mls @ 0 mls/hr IV .Q0M PRN; As Directed PRN Reason: Hypoglycemia Insulin Human Regular (Humulin R) 0 units SC .MILD SLIDING SCALE PRN PRN Reason: Mild Correctional Scale Levofloxacin (Levaquin) 500 mg PO 0600 [facility] Last Admin: 10/23/17 06:05 Dose: 500 mg Magnesium Hydroxide (Milk Of Magnesium) 30 ml PO DAILYPRN PRN PRN Reason: Constipation Last Admin: 10/22/17 09:00 Dose: 30 ml Ondansetron HCl (Zofran) 4 mg IVP Q6H PRN PRN Reason: Nausea/Vomiting Rivaroxaban (Xarelto) 20 mg PO DAILY [facility] Last Admin: 10/23/17 08:07 Dose: 20 mg Sodium Chloride (Flush - Normal Saline) 10 ml IVF Q12HR [facility] Last Admin: 10/23/17 08:10 Dose: 10 ml Sodium Chloride (Flush - Normal Saline) 10 ml IVF PRN PRN PRN Reason: Saline Flush Sodium Chloride ([place] Nasal [place] 0.65%) 1 ml EA NARE TID [facility] Last Admin: 10/23/17 15:01 Dose: 1 spr Tramadol HCl (Ultram) 25 mg PO Q6H PRN PRN Reason: Pain
[2017-10-24 06:10] LABS: Anion Gap 11 mmol/L (10-20); BUN (Urea Nitrogen) 16 mg/dL (8.4-25.7); Calc. Creatinine Clearance 65 mL/min (70-130); Calcium 9.5 mg/dL (7.8-10.44); Carbon Dioxide 28 mmol/L (23-31); Chloride 101 mmol/L (98-107); Estimated GFR-MDRD 52; Glucose 109 mg/dL (80-115); Potassium 4.4 mmol/L (3.5-5.1); Sodium 136 mmol/L (136-145)
[2017-10-24 07:57] LABS: Band 9 % (5-11); Eosinophils 1 % (0-10); Lymphocytes 34 % (21-51); MDiff Complete? YES; Mean Corpuscular HGB CONC 33.1 g/dL (32.0-36.0); Mean Corpuscular Hemoglobin 30.9 pg (27.0-31.0); Mean Corpuscular Volume 93.4 fl (80.0-94.0); Mean Platelet Volume 5.3 fL (7.4-10.4); Metamyelocyte 3 % (0-0); Monocytes 3 % (0-10); Neutrophil 50 % (42-75); Platelet Count 470 thou/uL (130-400); RBC Distribution Width 11.4 % (11.5-14.5); Red Blood Cell (RBC) Count 3.87 mill/uL (4.70-6.10); White Blood Cell (WBC) Count 9.5 thou/uL (4.8-10.8)
[2017-10-24] MEDS: Colchicine 0.3 MG TAB PO SCH ×2 (08:04→20:15)
[2017-10-24] MEDS: Sodium Chloride 0.65% Nasal 44 ML BOT EA NARE SCH ×3 (08:04→20:16)
[2017-10-24] MEDS: Digoxin 0.125 MG TAB PO SCH (08:05)
[2017-10-24] MEDS: guaiFENesin ER 600 MG TAB PO SCH ×2 (08:05→20:15)
[2017-10-24] MEDS: Rivaroxaban 10 MG TAB PO SCH (08:05)
[2017-10-24] MEDS ORDERED: Dexamethasone 4 MG TAB PO SCH (15:15)
--- NOTE | 2017-10-24 22:59 | PDOC.PN ---
- Subjective Encounter Start Date: 10/24/17 Encounter Start Time: 14:00 Subjective: nsg notes rev, yee ovn, family @ bedside c/o "popping" in R ear that -: is very irritating and he is concerned about hearing loss. notes that after -: the ear "pops" he can hear better - Objective Vital Signs & Weight: Vital Signs (12 hours) Temp Pulse Resp BP BP Pulse Ox 10/24/17 20:00 97.8 F 59 L 16 95/67 10/24/17 19:48 92 L 10/24/17 14:50 72 12 10/24/17 11:45 98.0 F 64 16 108/62 97 Weight Weight 188 lb 14.978 oz Most Recent Monitor Data Heart Rate from ECG 115 NIBP 110/49 NIBP BP-Mean 64 Respiration from ECG 15 SpO2 98 I&O: 10/23/17 10/24/17 10/25/17 06:59 06:59 06:59 Intake Total 2900 1140 Output Total 2625 1500 Balance 275 -360 Result Diagrams: 10/24/17 05:31 10/24/17 05:31 Phys Exam - Physical Examination Constitutional: NAD HEENT: PERRLA, moist MMs, sclera anicteric Respiratory: no wheezing, no rales, no rhonchi, clear to auscultation bilateral Cardiovascular: RRR, no significant murmur, no rub Gastrointestinal: soft, positive bowel sounds Musculoskeletal: pulses present Neurological: moves all 4 limbs Psychiatric: normal affect, A&O x 3 Dx/Plan - Plan * 67M hx CAD who initially went to his PCP with CC productive cough + fevers/ chills and was redirected for inpt adm for hypotention and afib with RVR * * PNA w/ initial sepsis * sepsis resolved * levaquin 500mg PO daily (total 10d course) * appreciate pulmonary c/s * leukocytosis resolved * adequate oxygenation on RA - ambulatory pulse ox * BCx + contaminant afib * rate ctrlled, digoxin * apprec card c/s * A/C with xarelto CHF with EF 25-30% - acute on chronic CHF * holding ARB, MARILU, BB 2/2 hypotension * rec'd 2L IVF, d/c IVF today * monitor hypotension, grossly asymptomatic elevated Cr * reasonable UOP * monitor I/O and repeat BMP constipation, resolved congestion and ear discomfort decadron x1 with continued symptomatic mgmt d/w patient d/c today but he prefers to be monitoring for further improvement in his r ear diet: cardiac activity: out of bed as zhao dvt ppx Review of Systems - Medications/Allergies Allergies/Adverse Reactions: Allergies Allergy/AdvReac Type Severity Reaction Status Date / Time Penicillins Allergy Verified 10/16/17 20:56 Medications: Current Medications Acetaminophen (Tylenol) 650 mg PO Q4H PRN PRN Reason: Headache/Fever or Pain Hydrocodone Bitart/Acetaminophen ([place] 5/325) 1 tab PO Q4H PRN PRN Reason: Moderate Pain (4-6) Last Admin: 10/23/17 06:06 Dose: 1 tab Albuterol/Ipratropium (Duoneb) 3 ml NEB [id number] [facility] Last Admin: 10/24/17 19:48 Dose: 3 ml Albuterol/Ipratropium (Duoneb) 3 ml NEB Q4H PRN PRN Reason: SOB &/or Wheezing Last Admin: 10/17/17 17:14 Dose: 3 ml Colchicine (Colcrys) 0.3 mg PO BID [facility] Last Admin: 10/24/17 20:15 Dose: 0.3 mg Dextrose/Water (Dextrose 50%) 25 gm SLOW IVP PRN PRN PRN Reason: Hypoglycemia Digoxin (Lanoxin) 0.125 mg PO DAILY [facility] Last Admin: 10/24/17 08:05 Dose: 0.125 mg Glucagon (Glucagon) 1 mg IM PRN PRN PRN Reason: Hypoglycemia Guaifenesin (Mucinex) 600 mg PO Q12HR [facility] Last Admin: 10/24/17 20:15 Dose: 600 mg Dextrose/Water (D5w) 1,000 mls @ 0 mls/hr IV .Q0M PRN; As Directed PRN Reason: Hypoglycemia Insulin Human Regular (Humulin R) 0 units SC .MILD SLIDING SCALE PRN PRN Reason: Mild Correctional Scale Levofloxacin (Levaquin) 500 mg PO 0600 [facility] Last Admin: 10/24/17 05:31 Dose: 500 mg Magnesium Hydroxide (Milk Of Magnesium) 30 ml PO DAILYPRN PRN PRN Reason: Constipation Last Admin: 10/22/17 09:00 Dose: 30 ml Ondansetron HCl (Zofran) 4 mg IVP Q6H PRN PRN Reason: Nausea/Vomiting Rivaroxaban (Xarelto) 20 mg PO DAILY [facility] Last Admin: 10/24/17 08:05 Dose: 20 mg Sodium Chloride (Flush - Normal Saline) 10 ml IVF Q12HR [facility] Last Admin: 10/24/17 20:18 Dose: 10 ml Sodium Chloride (Flush - Normal Saline) 10 ml IVF PRN PRN PRN Reason: Saline Flush Sodium Chloride ([place] Nasal [place] 0.65%) 1 ml EA NARE TID [facility] Last Admin: 10/24/17 20:16 Dose: 1 spr Tramadol HCl (Ultram) 25 mg PO Q6H PRN PRN Reason: Pain
[2017-10-25 05:44] LABS: #Basophils 0.1 thou/uL (0.0-0.2); #Eosinphils 0.1 thou/uL (0.0-0.7); #Lymphocytes 1.7 thou/uL (1.20-3.40); #Monocytes 0.6 thou/uL (0.11-0.59); #Neutrophils 12.1 thou/uL (1.40-6.50); %Basophils 0.4 % (0.0-1.0); %Eosinophils 0.6 % (0.0-10.0); %Lymphocytes 11.5 % (21.0-51.0); %Monocytes 4.3 % (0.0-10.0); %Neutrophils 83.1 % (42.0-75.0); Mean Corpuscular HGB CONC 33.4 g/dL (32.0-36.0); Mean Corpuscular Hemoglobin 30.8 pg (27.0-31.0); Mean Corpuscular Volume 92.1 fl (80.0-94.0); Mean Platelet Volume 5.3 fL (7.4-10.4); Platelet Count 502 thou/uL (130-400); RBC Distribution Width 11.3 % (11.5-14.5); Red Blood Cell (RBC) Count 4.22 mill/uL (4.70-6.10); White Blood Cell (WBC) Count 14.6 thou/uL (4.8-10.8)
[2017-10-25 06:10] LABS: Anion Gap 13 mmol/L (10-20); BUN (Urea Nitrogen) 20 mg/dL (8.4-25.7); Calc. Creatinine Clearance 60 mL/min (70-130); Calcium 9.8 mg/dL (7.8-10.44); Carbon Dioxide 28 mmol/L (23-31); Chloride 97 mmol/L (98-107); Estimated GFR-MDRD 47; Glucose 131 mg/dL (80-115); Potassium 4.7 mmol/L (3.5-5.1); Sodium 133 mmol/L (136-145)
[2017-10-25 08:15] VITALS: BP 94/65; TEMP 97.7
[2017-10-25] MEDS: Colchicine 0.3 MG TAB PO SCH (09:05)
[2017-10-25] MEDS: Rivaroxaban 10 MG TAB PO SCH (09:07)
[2017-10-25] MEDS: Digoxin 0.125 MG TAB PO SCH (09:07)
[2017-10-25] MEDS: guaiFENesin ER 600 MG TAB PO SCH (09:07)
[2017-10-25] MEDS: Sodium Chloride 0.65% Nasal 44 ML BOT EA NARE SCH ×2 (09:08→15:55)
--- NOTE | 2017-10-27 10:17 | DIS ---
DISCHARGE DIAGNOSES: 1. Sepsis on presentation secondary to pneumonia, resolved. 2. Community-acquired pneumonia. 3. Leukocytosis secondary to the above, resolved. 4. Atrial fibrillation, currently on anticoagulation and rate controlled. 5. Systolic congestive heart failure with acute exacerbation on chronic congestive heart failure with an EF of 25-30%. 6. Sustained hypotension. 7. Acute kidney injury. 8. Constipation. 9. Sinus congestion, improved. BRIEF SUMMARY OF HOSPITAL COURSE: This is a 67-year-old male with a known history of coronary artery disease, systolic heart failure with an EF of 25-30% , who was initially seen by his PCP immediately prior to admission with a chief complaint of fevers, chills, and a productive cough. He was subsequently sent directly from his PCP's office to our facility after being found to have both hypotension and atrial fibrillation with rapid ventricular response. Please see the original history and physical for full details surrounding admission. At the time of discharge, retrospectively, the patient is felt to have ruled in for sepsis with leukocytosis which was suspected on admission. The likely infectious etiology is a community-acquired pneumonia for which the patient is completing a 10-day course of Levaquin; he has 1 more day pending of this course. His respiratory status has improved and he is currently able to adequate oxygenation while ambulation on room air He was seen by Pulmonary in consultation as well during this hospitalization. Initial blood cultures demonstrated gram positive component that was felt to be contaminant and so the patient is not felt to have bacteremia at the time of discharge. Initial Leukocytosis likely secondary to both sepsis and pneumonia has resolved. Atrial fibrillation with rapid ventricular response for which the patient was initially sent in for is currently rate controlled on digoxin. The patient has been seen by Cardiology in consultation and is currently anticoagulated with Xarelto. In addition, the patient has a known history of heart failure was felt to have also sustained a component of acute on chronic congestive heart failure during this hospitalization. At the time of discharge, the patient, is unable to tolerate MARILU or beta juvencio secondary to persistent hypotension with systolic blood pressure in the 80s. These agents may be added as part of the patient's heart failure regimen on an outpatient basis if his hypotension improves. There was concern that the hypotension was perhaps precipitated by initial over diuresis of the patient. However, even after a fluid challenge the patient's blood pressures maintained systolically well below 100. Even with this SBP patient is grossly asymptomatic and able to ambulate, complete ADLs without difficulty. The patient did present with an elevated creatinine, likely secondary to sepsis , which at the time of discharge is significantly improved and the patient has been able to maintain reasonable urine output. The patient also had some other symptomatic issues including constipation and congestion that are significantly improved at the time of discharge. The patient has been complaining of a component of sinus congestion and of "popping in his ears" which he feels has adversely affected his balance. At the time of discharge, he has been able to ambulate safely in the hallway greater than 50 feet. He has family members at bedside and who will be helping him at discharge as well. The patient has also been given instructions, contact information to follow up within the next 2 days post-discharge if he feels that he has continued imbalance issues secondary to his "ears popping" at the time of discharge. Remainder of chronic medical issues were stable during hospitalization. CONDITION AT DISCHARGE: At the time of discharge, the patient is tolerating his baseline cardiac diet. He is able to ambulate out of bed and perform his ADLs without difficulty or assistance. MEDICATION RECONCILIATION: Please see the EMR for full details. Notably, the patient is newly on digoxin 0.125 mg p.o. daily, Xarelto 20 mg p.o. daily, Levaquin 500 mg p.o. daily for 1 more dose to complete a 10-day course, and colchicine 0.5 mg p.o. b.i.d. for complaints of gout. The patient is to otherwise remain on his chronic regimen. Please note that the patient has been unable to tolerate MARILU or beta blockade for his congestive heart failure. CONSULTATIONS: Cardiology, Dr. Ochoa; Pulmonology, Dr. Guerra; Nephrology , Dr. Reynoso. 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 2. 10/16/2017 - Second blood culture no growth to date. 3. 10/16/2017 - Influenza A and B negative. 4. 10/25/2017. WBC 14.6, hemoglobin 13.0, hematocrit 38.9, platelets 502. Chemistry: Sodium 133, potassium 4.7, chloride 97, bicarbonate 28, BUN 20, creatinine 1.5, glucose 131. 5. 10/18/2017 - Echocardiogram was done pending formal read. 6. 10/20/2017 - CT of the abdomen and pelvis. Impression: "No definite acute abnormality within the limitations of this exam within the abdomen and pelvis. Reticulonodular area in the right lower lobe which can be seen with respiratory bronchiolitis. Stable complex cystic lesion involving the superior pole of the right kidney, measuring up to 2.8 cm. Stable left renal cyst. Other chronic findings as above. Thank you for asking me to care for the patient. Greater than 30 minutes spent coordinating discharge for the patient. Any questions or concerns, please contact me at [facility]. BRIDGET
--- NOTE | 2017-11-28 14:59 | EKG ---
Test Reason : AFIB RVR Blood Pressure : / mmHG Vent. Rate : 118 BPM Atrial Rate : 092 BPM P-R Int : 000 ms QRS Dur : 080 ms QT Int : 330 ms P-R-T Axes : 000 -36 268 degrees QTc Int : 462 ms Atrial fibrillation with rapid ventricular response Left axis deviation Cannot rule out Anterior infarct , age undetermined T wave abnormality, consider inferior ischemia Abnormal ECG Confirmed by DELGADO BAKER, MINNIE ([id number]), web editor DUANE FELIX ([id number]) on 11/28/2017 2:58:52 PM Referred By: POORNIMA NATARAJAN Confirmed By:MINNIE NATARAJAN MD
== END 2017-10-25 18:10 | disposition home or self-care (01) | DRG 871 ==
LOC: ERS 15:06 → CCU 19:19 → ONC 10-19 16:25
PROVIDERS: ADMIT Internal Medicine; ATTEND Internal Medicine
PROC: 02HV33Z Insertion of Infusion Device into Superior Vena Cava, Percutaneous Approach (ICD-10-PCS; principal; 2017-10-16)
DX: A41.9 Sepsis, unspecified organism (principal); I50.23 Acute on chronic systolic (congestive) heart failure; N17.9 Acute kidney failure, unspecified; J18.9 Pneumonia, unspecified organism; E11.22 Type 2 diabetes mellitus with diabetic chronic kidney disease; I13.0 Hypertensive heart and chronic kidney disease with heart failure and stage 1 through stage 4 chronic kidney disease, or unspecified chronic kidney disease; I24.8 Other forms of acute ischemic heart disease; E87.1 Hypo-osmolality and hyponatremia; I95.89 Other hypotension; I42.0 Dilated cardiomyopathy; I48.2 Chronic atrial fibrillation; I25.10 Atherosclerotic heart disease of native coronary artery without angina pectoris; Z95.810 Presence of automatic (implantable) cardiac defibrillator; Z23 Encounter for immunization; N18.3 Chronic kidney disease, stage 3 (moderate); D64.9 Anemia, unspecified; E87.6 Hypokalemia; R65.20 Severe sepsis without septic shock; E86.9 Volume depletion, unspecified; Z86.14 Personal history of Methicillin resistant Staphylococcus aureus infection; Z79.01 Long term (current) use of anticoagulants; M10.9 Gout, unspecified; K59.00 Constipation, unspecified; R09.81 Nasal congestion
CPT/HCPCS: 36415; 36416; 36556; 71045; 74176; 80048; 80053; 80202; 80400; 82533; 82553; 83605; 83690; 83880; 84484; 85025; 87040; 87149; 87804; 90471; 90670; 93005; 93306; 94640; 96365; 96366; 96367; 96368; 96375; A4216; C1769; G0009; G8978-GP-CK; G8979-GP-CJ; G8987-GO-CJ; G8988-GO-CI; J0456; J0834; J1100; J1885; J1956; J3370; J7050; J7620; J8540

== ENCOUNTER 2017-12-18 23:56 | Emergency (ER) | payer MEDICARE, OTHER ==
[2017-12-19] MEDS ORDERED: Ketorolac Tromethamine 30 MG/ML VIAL ONE (00:31)
[2017-12-19] MEDS ORDERED: Morphine 10 MG/ML VIAL ONE (00:31)
== END 2017-12-19 01:07 | disposition home or self-care (01) ==
LOC: ERS 23:56
DX: M10.9 Gout, unspecified (principal); I10 Essential (primary) hypertension
CPT/HCPCS: 96372; J1885; J2270

== ENCOUNTER 2018-03-24 12:40 | Outpatient (CLI) | payer MEDICARE, OTHER ==
[2018-03-24 14:33] LABS: Hemoglobin 15.5 g/dL (14.0-18.0); Mean Corpuscular HGB CONC 35.4 g/dL (32.0-36.0); Mean Corpuscular Hemoglobin 32.1 pg (27.0-31.0); Mean Corpuscular Volume 90.5 fL (78.0-98.0); Mean Platelet Volume 6.4 fL (7.4-10.4); Platelet Count 293 thou/uL (130-400); RBC Distribution Width 12.9 % (11.5-14.5); Red Blood Cell (RBC) Count 4.82 mill/uL (4.70-6.10); White Blood Cell (WBC) Count 11.2 thou/uL (4.8-10.8)
[2018-03-24 14:38] LABS: Prothrombin Time 13.1 SEC (12.0-14.7)
[2018-03-24 14:39] LABS: PTT 29.9 SEC (22.9-36.1)
[2018-03-24 14:51] LABS: Anion Gap 12 mmol/L (10-20); BUN (Urea Nitrogen) 24 mg/dL (8.4-25.7); Calc. Creatinine Clearance 0 mL/min (70-130); Calcium 9.6 mg/dL (7.8-10.44); Carbon Dioxide 26 mmol/L (23-31); Chloride 104 mmol/L (98-107); Estimated GFR-MDRD 55; Glucose 98 mg/dL (80-115); Potassium 4.1 mmol/L (3.5-5.1); Sodium 138 mmol/L (136-145)
--- NOTE | 2018-03-26 16:50 | EKG ---
Test Reason : Blood Pressure : / mmHG Vent. Rate : 093 BPM Atrial Rate : 441 BPM P-R Int : 000 ms QRS Dur : 072 ms QT Int : 368 ms P-R-T Axes : 000 -32 -23 degrees QTc Int : 457 ms Atrial fibrillation Left axis deviation Low voltage QRS Cannot rule out Anterior infarct (cited on or before 29-APR-2013) Abnormal ECG Confirmed by KELSEY VANG ([id number]) on 03/26/2018 4:50:16 PM Referred By: JEVON Confirmed By:KELSEY VANG
== END 2018-03-24 12:41 | disposition home or self-care (01) ==
LOC: LABBT 12:40
PROVIDERS: ATTEND Internal Medicine Cardiovascular Disease
DX: Z01.818 Encounter for other preprocedural examination (principal); I48.91 Unspecified atrial fibrillation
CPT/HCPCS: 80048; 85027; 85610; 85730; 93005; 93010

== ENCOUNTER 2018-04-02 08:39 | Observation (INO) | payer MEDICARE, OTHER ==
[2018-03-24 13:27] VITALS: BMI 30.7
[2018-04-02] MEDS ORDERED: Heparin 10,000 UNITS/1 ML VIAL ONE (10:56)
[2018-04-02] MEDS ORDERED: Lidocaine 1% (PF) 30 ML VIAL ONE (11:36)
[2018-04-02] MEDS ORDERED: Fentanyl 100 MCG/2 ML VIAL ONE ×3 (11:38→16:04)
[2018-04-02] MEDS ORDERED: Phenylephrine HCL 10 MG/ML VIAL ONE (12:26)
[2018-04-02] MEDS ORDERED: Isoproterenol 0.2 MG/1 ML AMP ONE (12:39)
[2018-04-02] MEDS ORDERED: HYDROmorphone 2 MG/ML VIAL SLOW IVP PRN (13:28)
[2018-04-02] MEDS ORDERED: Ondansetron HCl/PF 4 MG/2 ML Vial IVP PRN (13:28)
[2018-04-02] MEDS ORDERED: Promethazine HCl 25 MG/ML VIAL SLOW IVP PRN (13:28)
[2018-04-02] MEDS ORDERED: Promethazine HCl 25 MG/ML VIAL IM PRN (13:28)
[2018-04-02] MEDS ORDERED: Meperidine HCl/PF 25 MG/ML VIAL SLOW IVP PRN (13:28)
[2018-04-02] MEDS ORDERED: Dexamethasone 20 MG/5 ML VIAL ONE (13:42)
[2018-04-02] MEDS ORDERED: ePHEDrine/0.9% NaCl/PF SYRINGE 50 mg/10 ml ONE (13:42)
[2018-04-02] MEDS ORDERED: Heparin 30,000 units/30 ml VIAL ONE (13:42)
[2018-04-02] MEDS ORDERED: PROPOFOL 200 MG/20 ML VIAL ONE (13:42)
[2018-04-02] MEDS ORDERED: Lidocaine 1% PF 5 ML VIAL ONE (13:42)
[2018-04-02] MEDS ORDERED: Ondansetron HCl/PF 4 MG/2 ML Vial ONE (13:42)
[2018-04-02] MEDS ORDERED: PHENYLEPHRINE-NS 100 MCG/ML 10 ML SYRINGE ONE (13:42)
[2018-04-02] MEDS ORDERED: Glycopyrrolate 0.2 MG/ML 5 ML SYRINGE ONE (13:42)
[2018-04-02] MEDS ORDERED: Protamine Sulfate 50 MG/5 ML VIAL ONE (14:01)
[2018-04-02] MEDS ORDERED: HYDROcodone/Acetaminophen 5/325 mg Tablet PO PRN ×2 (14:50)
--- NOTE | 2018-04-02 19:57 | OP ---
DATE OF PROCEDURE: 04/02/2018 ELECTROPHYSIOLOGY PROCEDURE NOTE PROCEDURES: 1. Comprehensive EP testing with 3D mapping and ablation of atrial fibrillation. 2. Intracardiac echocardiography. 3. Transseptal catheterization x2. 4. Ultrasound access into veins. 5. Collagen closure of the venous access sites. 6. Isoproterenol infusion. CLINICAL INDICATION: Atrial fibrillation, persistent. WASTE WATER WORKER: Xavi Milian M.D. ASA CLASSIFICATION: 3. ANESTHESIA: General endotracheal anesthesia. ADDITIONAL CARDIAC MEDICATIONS: Total heparin given 19,000. Total protamine given 40 mg. ACUTE COMPLICATIONS: None. TOTAL RADIOFREQUENCY TIME: 35 minutes 56 seconds. TOTAL FLUOROSCOPY TIME: Zero. METHODS: After informed consent was obtained, the patient was taken to the EP lab in fasting state. Both groins were prepped and draped using ultrasound guidance, the right and left femoral veins were accessed and wires were inserted into the central venous system. An 11-St Lucian and 8-St Lucian sheaths were placed in left groin, two 8-St Lucian sheaths were placed in right groin. The 8-St Lucian sheaths wer e all replaced with long sheaths for catheter stability. A 10-St Lucian echo probe was placed in left g roin, advanced into the right atrium and right ventricle for imaging. A 3D mapping geometry was obta ined to the right atrium, the coronary sinus using a circular ablation catheter from the right groin. The patient was then fully anticoagulated. A CS catheter was placed from the left groin into the c oronary sinus, the proximal end the marybeth terminalis. Transseptal catheterization was perform ed using ultrasound guidance and 3D mapping guidance. A temperature probe was placed in the esophagu s, co-located with a censored catheter, to be visualized in the 3D mapping system. A 3D map was obta ined and geometry of the left atrium and ablation was delivered completely isolating all four pulmona ry veins and posterior wall of the left atrium. The entire roof, the mitral isthmus area, and the le ft atrial appendage were also isolated, distal CS was also isolated with these maneuvers. The patien t's atrial fibrillation organized and then ultimately terminated without any additional lesions in th e right atrium. After isoproterenol challenge, there was no further arrhythmias. Ablation of the po sterior wall was performed completing isolation of this area in sinus rhythm. Catheter was then with drawn, sheaths were pulled, hemostasis was achieved with a collagen closure. Heparin was reversed. RESULTS: 1. Baseline intervals, HV interval 54 milliseconds. 2. Atrial function. The patient was in coarse atrial fibrillation. Isolation of all four pulmonary veins was performed along with the roof, the lateral wall in front of the left veins, the left atria l appendage and the distal coronary sinus. After all of these maneuver performed, the arrhythmia ter minated spontaneously. 3. Ablation details. A total of 35 minutes 56 seconds of energy were delivered with a [id number] ter open, irrigated ablation catheter, high output. IMPRESSION: Successful isolation of pulmonary veins, posterior wall roof, lateral wall and the left atrial appendage and the coronary sinus for treatment of atrial fibrillation. RECOMMENDATION: Oral anticoagulation until further notice.
[2018-04-02] MEDS: Potassium Chloride 20 MEQ TAB PO SCH (20:27)
[2018-04-02] MEDS: Sodium Chloride 0.65% Nasal 44 ML BOT EA NARE SCH (20:27)
[2018-04-02] MEDS: Colchicine 0.3 MG TAB PO SCH (20:27)
[2018-04-03] MEDS ORDERED: Furosemide 40 MG/4 ML VIAL SLOW IVP SCH (06:00)
[2018-04-03 07:25] VITALS: BP 100/65; TEMP 98.3
[2018-04-03] MEDS ORDERED: Spironolactone 25 MG TAB PO SCH (08:00)
[2018-04-03] MEDS: Colchicine 0.3 MG TAB PO SCH (08:02)
[2018-04-03] MEDS: Sodium Chloride 0.65% Nasal 44 ML BOT EA NARE SCH (08:02)
[2018-04-03] MEDS ORDERED: Digoxin 0.125 MG TAB PO SCH (09:00)
[2018-04-03] MEDS ORDERED: Rivaroxaban 10 MG TAB PO SCH (09:00)
[2018-04-03] MEDS ORDERED: Carvedilol 6.25 MG TAB PO SCH (09:00)
[2018-04-03] MEDS ORDERED: Furosemide 40 MG TAB PO SCH (09:00)
[2018-04-03] MEDS ORDERED: Allopurinol 300 MG TAB PO SCH (09:00)
[2018-04-03] MEDS ORDERED: Losartan 25 MG TAB PO SCH (09:00)
[2018-04-03] MEDS: Potassium Chloride 20 MEQ TAB PO SCH (09:14)
--- NOTE | 2018-04-03 12:13 | DIS ---
ADMITTING PHYSICIAN: Dr. Xavi Milian DATE OF ADMISSION: 04/02/2018 for 23-hour observation. DATE OF DISCHARGE: 04/03/2018 CONDITION ON DISCHARGE: Stable without postoperative complications. DIAGNOSIS: Persistent atrial fibrillation. PROCEDURES PERFORMED: Include a comprehensive EP testing with mapping and ablation for atrial fibril lation. The patient arrived in atrial fibrillation. He underwent isolation of all four pulmonary veins along the roof, the lateral wall in front of the left veins, the left atrial appendage as well as the dist al coronary sinus. His atrial fibrillation terminated spontaneously and he received a total of 35 mi nutes 56 seconds of RF energy delivered. HOSPITAL COURSE AND ASSESSMENT: The patient has done well postoperatively without significant compli cations. He has not had any signs of congestive heart failure and has been up ambulating in the room without difficulty. He is tolerating food and voiding normally. He has maintained sinus rhythm ove rnight with minimal atrial ectopy. His vital signs have all remained stable. He feels ready for dis charge. His groin sites are stable without hematoma or bleeding complications and he has received co llagen closure devices bilaterally. Discharge instructions were given and he and his are comfortable discharging home today. DISCHARGE MEDICATIONS: He will continue home medications of allopurinol daily, carvedilol daily, col chicine 0.3 mg p.o. b.i.d., Lasix 40 mg p.o. daily within that an additional dose as needed for short ness of breath, Losartan daily, Protonix 40 mg p.o. daily x30 days, potassium chloride 20 mEq, if [place] ing additional Lasix, Xarelto 20 mg daily, spironolactone daily, Carafate 1 gram q.i.d. x2 weeks. Al l the prescriptions have been submitted electronically to his pharmacy. DISCHARGE INSTRUCTIONS: No lifting greater than 25 pounds or soaking baths for 1 week, then okay to resume activity gradually and as tolerated. He will follow up in 4-6 weeks with [facility] in [place] and has been given followup instructions. He will receive an event monitor in the mail in one week's time for continued monitoring during his postoperative time and for arrhythmia recurrence, and monit oring. He is off antiarrhythmic medications. All questions have been answered. He is stable and re petey for discharge.
== END 2018-04-03 11:33 | disposition home or self-care (01) ==
LOC: CCL 08:39 → 2SW 15:55 → CCL 18:29 → 2SW 18:30
PROVIDERS: ADMIT Internal Medicine Cardiovascular Disease; ATTEND Internal Medicine Cardiovascular Disease
PROC: 02583ZZ Destruction of Conduction Mechanism, Percutaneous Approach (ICD-10-PCS; principal; 2018-04-02)
PROC: 02K83ZZ Map Conduction Mechanism, Percutaneous Approach (ICD-10-PCS; 2018-04-02)
PROC: B246ZZZ Ultrasonography of Right and Left Heart (ICD-10-PCS; 2018-04-02)
DX: I48.1 Persistent atrial fibrillation (principal); I42.0 Dilated cardiomyopathy; Z79.02 Long term (current) use of antithrombotics/antiplatelets; Z79.899 Other long term (current) drug therapy; Z88.0 Allergy status to penicillin
CPT/HCPCS: 76942; 85347 ×2; 93613; 93623; 93656; 93662; 96374 ×2; C1731; C1732 ×2; C1759; C1769; G0378; J1100; J1644; J1940; J2001; J2370; J2405; J2704; J2720; J3010

== ENCOUNTER 2019-05-19 11:24 | Inpatient (IN) | payer MEDICARE, OTHER ==
[2019-05-19] MEDS ORDERED: Ondansetron ODT 4 MG TAB PO PRN (14:40)
[2019-05-19] MEDS ORDERED: Acetaminophen 325 MG TAB PO PRN (14:40)
[2019-05-19] MEDS ORDERED: Zolpidem Tartrate 5 MG TAB PO PRN (14:40)
[2019-05-19] MEDS ORDERED: Pepto Bismol Chew TAB PO PRN (14:40)
[2019-05-19] MEDS ORDERED: Mag-Al 1200 mg/1200 mg/30 ML UDCUP PO PRN (14:40)
[2019-05-19] MEDS ORDERED: Bisacodyl 5 MG TAB PO PRN (14:40)
[2019-05-19] MEDS ORDERED: HYDROcodone/Acetaminophen 5/325 mg Tablet PO PRN ×2 (14:40)
[2019-05-19] MEDS ORDERED: Senokot 8.6 MG TAB PO PRN (14:40)
[2019-05-19] MEDS ORDERED: Calcium Carbonate 500 MG ChewTAB PO PRN (14:40)
[2019-05-19 15:19] LABS: #Eosinphils 0.2 thou/uL (0.0-0.7); #Lymphocytes 1.8 thou/uL (1.20-3.40); #Monocytes 0.7 thou/uL (0.11-0.59); #Neutrophils 9.2 thou/uL (1.40-6.50); %Eosinophils 1.9 % (0.0-10.0); %Lymphocytes 14.9 % (21.0-51.0); %Monocytes 5.5 % (0.0-10.0); %Neutrophils 77.6 % (42.0-75.0); Hemoglobin 13.5 g/dL (14.0-18.0); Mean Corpuscular HGB CONC 32.9 g/dL (32.0-36.0); Mean Corpuscular Hemoglobin 31.1 pg (27.0-31.0); Mean Corpuscular Volume 94.6 fL (78.0-98.0); Mean Platelet Volume 7.2 fL (7.4-10.4); Platelet Count 281 thou/uL (130-400); RBC Distribution Width 13.7 % (11.5-14.5); Red Blood Cell (RBC) Count 4.34 mill/uL (4.70-6.10); White Blood Cell (WBC) Count 11.8 thou/uL (4.8-10.8)
[2019-05-19 15:42] LABS: Anion Gap 13 mmol/L (10-20); BUN (Urea Nitrogen) 23 mg/dL (8.4-25.7); Calc. Creatinine Clearance 74 mL/min (70-130); Carbon Dioxide 22 mmol/L (23-31); Chloride 106 mmol/L (98-107); Estimated GFR-MDRD 54; Glucose 111 mg/dL (80-115); Potassium 4.1 mmol/L (3.5-5.1); Sodium 137 mmol/L (136-145)
[2019-05-19] MEDS: Rivaroxaban 10 MG TAB PO SCH (18:02)
[2019-05-19] MEDS ORDERED: Sodium Chloride 0.9% 10 ML ONE (20:55)
[2019-05-19] MEDS: Carvedilol 6.25 MG TAB PO SCH (21:23)
[2019-05-19] MEDS: Famotidine/PF 20 mg/2ml Vial SLOW IVP SCH (21:24)
[2019-05-19] MEDS ORDERED: Amiodarone 450 MG, Admixture Fee 1 EACH in Dextrose 5% in Water 250 ML IVPB SCH (23:45)
[2019-05-19] MEDS ORDERED: Amiodarone 150 MG, Admixture Fee 1 EACH in Dextrose 5% in Water 100 ML IVPB SCH (23:45)
[2019-05-20 00:05] LABS: ALT (SGPT) 164 U/L (8-55); AST (SGOT) 41 U/L (5-34); Albumin 3.7 g/dL (3.4-4.8); Alkaline Phosphatase 62 U/L (40-110); Bilirubin, Direct 1.8 mg/dL (0.1-0.3); Bilirubin, Total 3.1 mg/dL (0.2-1.2); Magnesium 2.2 mg/dL (1.6-2.6); Potassium 4.1 mmol/L (3.5-5.1); Protein, Total 5.9 g/dL (5.8-8.1)
[2019-05-20] MEDS ORDERED: Milk Of Magnesia 30 ML UDCUP PO PRN (02:07)
[2019-05-20] MEDS ORDERED: DOBUTamine 500 mg/250 ml 500 MG in Premix Bag 1 BAG IVPB SCH ×2 (02:15→09:00)
[2019-05-20] MEDS ORDERED: Furosemide 40 MG/4 ML VIAL SLOW IVP SCH (06:30)
[2019-05-20] MEDS ORDERED: Prevnar 13-Val Conj/PF 0.5 ML SYRINGE IM ONE (09:00)
[2019-05-20] MEDS ORDERED: FLU VACC TS2019-20(65YR UP)/PF 180 MCG/0.5 ML SYRINGE IM ONE (09:00)
[2019-05-20] MEDS: Allopurinol 300 MG TAB PO SCH (09:09)
[2019-05-20] MEDS: Carvedilol 6.25 MG TAB PO SCH ×2 (09:10→20:42)
[2019-05-20] MEDS: Famotidine/PF 20 mg/2ml Vial SLOW IVP SCH ×2 (09:11→20:42)
[2019-05-20] MEDS: Spironolactone 25 MG TAB PO SCH (09:11)
--- NOTE | 2019-05-20 10:27 | CON ---
DATE OF CONSULTATION: 05/20/2019 SUBJECTIVE: Mr. Dumont is doing better this morning. He had a very difficult night. It began with PVCs and VT. He was placed on IV amiodarone and had a drop in his blood pressure. Amiodarone was then discontinued. He used 10 pounds fluid overload, did not want to give him any further fluid. He was then placed on Dobutrex . There is risk of further ectopy. His blood pressure did come up. He did have more ectopy in addition to a nonsustained VT and was paced out of the VT. IV Dobutrex currently. He was able to get Lasix this morning and continues to have urine output. He states he feels much better this morning than he did yesterday. OBJECTIVE: VITAL SIGNS: Blood pressure 115/74, pulse 91, and temperature 98.2. LUNGS: Crackles noted bilaterally. HEART: Regular rate and rhythm. ABDOMEN: Soft, nontender, and nondistended. EXTREMITIES: 2+ pitting edema. PERTINENT LABORATORY DATA: Hemoglobin 13.5 and hematocrit 41. Creatinine 1.32, total bilirubin 3.1, direct bilirubin 1.8, and AST and ALT of 141/162. IMPRESSION: 1. Acute on chronic systolic heart failure. 2. Nonischemic cardiomyopathy. 3. Status post implantable cardioverter-defibrillator. 4. Ventricular tachycardia. RECOMMENDATIONS: 1. We will try and wean off Dobutrex as long as he maintains blood pressure. 2. Continue IV Lasix. 3. Consult with EP. 4. Consider milrinone, if blood pressure remains low. 5. Order chest x-ray and echo. 6. Increased AST and ALT, likely from passive hepatic congestion. Job ID: [id number]
[2019-05-20 11:11] LABS: ALT (SGPT) 144 U/L (8-55); AST (SGOT) 31 U/L (5-34); Albumin 3.7 g/dL (3.4-4.8); Alkaline Phosphatase 58 U/L (40-110); Anion Gap 11 mmol/L (10-20); BUN (Urea Nitrogen) 18 mg/dL (8.4-25.7); Bilirubin, Total 3.2 mg/dL (0.2-1.2); Calc. Creatinine Clearance 71 mL/min (70-130); Calcium 8.7 mg/dL (7.8-10.44); Carbon Dioxide 26 mmol/L (23-31); Chloride 104 mmol/L (98-107); Estimated GFR-MDRD 52; Globulin 2.2 g/dL (2.4-3.5); Glucose 121 mg/dL (80-115); Potassium 3.8 mmol/L (3.5-5.1); Protein, Total 5.9 g/dL (5.8-8.1); Sodium 137 mmol/L (136-145)
[2019-05-20] MEDS: DOBUTamine 500 mg/250 ml 500 MG in Premix Bag 1 BAG IVPB SCH (12:26)
--- NOTE | 2019-05-20 13:13 | RAD ---
TWO VIEW CHEST: HISTORY: CHF. COMPARISON: 10/18/2017 FINDINGS: Mild cardiomegaly. Mild vascular engorgement. Small effusions may be present, blunting the posterior gutters. Mild vascular and interstitial congestion noted. AICD lead is unchanged. POS: TPC
[2019-05-20] MEDS: Furosemide 40 MG/4 ML VIAL SLOW IVP SCH (14:57)
[2019-05-20 16:10] LABS: Bacteria/HPF None Seen HPF (None Seen); Bilirubin Negative (Negative); Blood, Urine Negative (Negative); Clarity Clear (Clear); Glucose, Urine (Dipstick) Normal (Negative); Leukocyte Negative Leu/uL (Negative); Nitrite Negative (Negative); Protein, Urine (Dipstick) Negative (Neg-Trace); RBC/HPF 0-3 HPF (0-3); Squamous Epithelial 0-3 HPF (0-3); WBC/HPF None Seen HPF (0-3)
--- NOTE | 2019-05-20 16:47 | CON ---
DATE OF CONSULTATION: HISTORY OF PRESENT ILLNESS: Ridge Dumont is a 68-year-old gentleman, the patient of Dr. Juan Ochoa, admitted to the hospital yesterday with shortness of breath, marked lower extremity swelling. He was found to have runs of ventricular and supraventricular arrhythmias last night. He was started on amiodarone. He dropped his blood pressure and apparently, was started on Dobutrex to which he felt better. His systolic blood pressure 110. This morning, when his Dobutrex was decreased, his systolic blood pressure dropped back in the 80s. He now was transferred to the ICU for ongoing Dobutrex management to rule out any other issues regarding his shortness of breath. 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 He has a cough which has had for a long time. No wheezing. No fever or chills. Former smoker, quit smoking 30+ years ago. Smoked maybe half pack a day for 10 years. Previous history of pneumonia. No history of asthma or TB exposure. PAST MEDICAL HISTORY: Other pertinent for mild azotemia and cardiomyopathy. His EF has been in the past 15% to 20%, history of cardiac ventricular and supraventricular arrhythmias, status post ablation. PAST SURGICAL HISTORY: AICD in place and knee surgery. ALLERGIES: PENICILLIN. HOME MEDICATIONS: 1. Aldactone 0.5. 2. Xarelto 20. 3. Losartan one. 4. Lasix 20. 5. Coreg 12.5. 6. Allopurinol. He is now on amiodarone and Dobutrex drips in the ICU. REVIEW OF SYSTEMS: Otherwise negative. PHYSICAL EXAMINATION: VITAL SIGNS: His saturations are 97% on room air, pulse 90, and blood pressure 128/80. CHEST: No wheezing or crackles. CARDIAC: Normal S1, S2. No gallops. ABDOMEN: No masses. LABORATORY DATA: Creatinine 1.36. White count 11,000. H and H are unremarkable. Platelet count is normal. BNP is 1979, elevated. Liver function slightly elevated. AST 31, ALT 144. Thyroid function is normal. Bilirubin is 1.8. ASSESSMENT: 1. Hypertension. Cardiomyopathy. 2. Status post automatic implantable cardioverter-defibrillator with recurrent supraventricular arrhythmias. 3. Abnormal liver function tests, probably secondary to congestion, elevated from cardiomyopathy, congestive heart failure. PLAN: Unfortunately, I doubt there is any primary pulmonary pathology. Most of his symptoms are due to cardiomyopathy. Echo is being ordered. Again, we gently diurese him, low-dose Dobutrex. Supportive care. At this stage, he appears to be in no acute distress in the ICU. We will follow while in the ICU. This is a consultation note with 70 minutes, 50% direct patient care. Job ID: [id number]
[2019-05-20] MEDS: Rivaroxaban 10 MG TAB PO SCH (17:16)
[2019-05-20 20:44] VITALS: BP 127/68
[2019-05-21] MEDS: Furosemide 40 MG/4 ML VIAL SLOW IVP SCH ×2 (06:21→14:17)
--- NOTE | 2019-05-21 06:59 | CON ---
DATE OF CONSULTATION: 05/20/2019 HISTORY OF PRESENT ILLNESS: I am seeing Mr. 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 His problems are ; 1. Frequent ventricular ectopy. a. ATP terminated ventricular tachycardia noted on telemetry monitors. b. IV amiodarone therapy initiated. 2. Acute on chronic systolic congestive heart failure with acute fluid overload. 3. Prior history of LVEF 25% to 30% and negative left heart catheterization by prior cardiac catheterization. 4. History of persistent atrial fibrillation post pulmonary venous isolation procedure started by Dr. Milian on April 02, 2018, including isolation of left atrial appendage. 5. History of MRSA bacteremia in the past. 6. Status post single-chamber ICD implanted on April 30, 2017, Medtronic Secura VR device. 7. Hypertension. ALLERGIES: PENICILLIN. MEDICATIONS: At home included; 1. Xarelto. 2. Losartan. 3. Carvedilol. 4. Spironolactone. 5. Allopurinol. 6. Furosemide. SUBJECTIVE: Mr. Dumont is complaining of increasing swelling, dyspnea, difficult to lay down. He denies palpitations or loss of consciousness. He has no stroke-like symptoms. No neurological deficits. REVIEW OF SYSTEMS: Rest review of system otherwise unremarkable. PAST HISTORY: As above. SOCIAL HISTORY: Patient is a smoker. Denies EtOH or drug abuse. FAMILY HISTORY: Noncontributory. OBJECTIVE DATA: VITAL SIGNS: Blood pressure 106/75, heart rate 85, respirations 20, and temperature 98.1 degrees Fahrenheit. GENERAL: Alert and oriented man, in no apparent distress. NECK: Supple. Jugular veins slightly distended. CHEST: Coarse, no crackles. HEART: Sounds are distant. No murmur or gallop. ABDOMEN: Benign. Bowel sounds positive. Some abdominal distention is noted. EXTREMITIES: Lower extremities are without clubbing or cyanosis. 1+ edema noted bilaterally. NEUROLOGIC: Patient is nonfocal. MUSCULOSKELETAL: No joint deformity. SKIN: Without rash. DATABASE: EKG is reviewed revealing sinus rhythm, rate of 109 beats per minute, narrow QRS 90 milliseconds. Telemetry strips reveal episodes of nonsustained ventricular tachycardia and one instant when 10 seconds of wide-complex run is noted. Another instant when ventricular tachycardia was terminated with ATP therapy. LABORATORY DATA: White cell count is 11.8, hemoglobin 13.5, and platelet count is 281. Sodium 137, potassium 3.8, BUN is 18, and creatinine 1.36. The BNP initially 1979 . The chest x-ray from this morning reveals mild cardiomegaly. The ICD lead unchanged. Interrogation of the device reviewed revealing a Medtronic Secura VR single-chamber ICD. The longevity is adequate with voltage currently at 3 V. The parameters were also in normal range at 323 ohms and sensing 3.4 mV increasing ventricular tachycardia episodes noted over the last couple of months even more frequent nonsustained ventricular tachycardia spells are seen since January. ATP terminated VT episodes are seen, most recently two sequences delivered on May 20 and also March 17, 2019. ASSESSMENT AND PLAN: Mr. Dumont is a pleasant 68-year-old man with history of congestive heart failure and ischemic cardiomyopathy. He had severe reduced left ventricular ejection fraction in the past, has a single-chamber ICD in place with episodic ventricular tachycardia which seems to have become more frequent since the end of February progressively so and the last two days. He also has a corresponding increase in fluid overload since the end of February, now is admitted with fluid overload and episode of ventricular tachycardia are seen. He was initiated on amiodarone therapy. Now, he seems to be doing better with Dobutrex, and the amiodarone seems to be keeping his VT episodes at least nonsustained and less frequent. He continues to diurese well. Total of 2 L over the last 12 hours are seen. He seems to be more comfortable in the bed. I think these increased frequency of ventricular tachycardia episodes are in correlation with his fluid overload. Naturally, amiodarone could be useful in this setting to acutely suppress the ventricular arrhythmias if tolerated with lower bloo pressures. Optimization of his heart failure is paramount which is already initiated. For now, I agreed with the management. Will continue monitor him. EKG is requested. Optimize electrolytes. At this point, I suspect the fluid overload is the main cause of his VT flare up. Hopefully we can avoid superintendent terminal amiodarone therapy. I am expecting the VT episodes subside with optimize heart failure status. We will follow with you. Thank you for the consult. Job ID: [id number] MTDD
[2019-05-21] MEDS: Allopurinol 300 MG TAB PO SCH (08:20)
[2019-05-21] MEDS: Spironolactone 25 MG TAB PO SCH (08:20)
[2019-05-21] MEDS: Famotidine/PF 20 mg/2ml Vial SLOW IVP SCH ×2 (08:20→21:35)
--- NOTE | 2019-05-21 08:38 | PRG ---
DATE OF SERVICE: 05/21/2019 SUBJECTIVE: Mr. Dumont is doing much better today. He is diuresed. Blood pressure has been stable. Blood pressure is going to 108/79. He has lost since his admission 19 pounds of the initial weight was taken on the bed. He has no current complaints. He does have mild wheezing. OBJECTIVE: VITAL SIGNS: Blood pressure 108/79, pulse 88, and temperature afebrile. LUNGS: Minimal crackles. Mild rhonchi present bilaterally. HEART: Regular rate and rhythm. ABDOMEN: Soft, nontender, and nondistended. EXTREMITIES: No edema. PERTINENT LABORATORY DATA: Hemoglobin 13.5. Creatinine 1.36. BNP of 1978. IMPRESSION: 1. Acute on chronic systolic heart failure. 2. Nonischemic cardiomyopathy. 3. Status post implantable cardioverter-defibrillator. 4. Hypotension. 5. Nonsustained ventricular tachycardia. PLAN: 1. Appreciate Pulmonary and EP input. 2. Continue IV Lasix and Dobutrex. 3. Recommend continued ICU care over the next 24 hours. 4. Recommend weaning off Dobutrex tomorrow and potentially ask telemetry monitoring as long as he is stable. 5. Check BNP and CBC in a.m. 6. Once he is off Dobutrex, we would add Coreg and Entresto as long as his creatinine is stable. 7. Continue Xarelto for atrial fibrillation. Job ID: [id number]
[2019-05-21 11:10] LABS: Anion Gap 12 mmol/L (10-20); BUN (Urea Nitrogen) 20 mg/dL (8.4-25.7); Calc. Creatinine Clearance 63 mL/min (70-130); Calcium 9.2 mg/dL (7.8-10.44); Carbon Dioxide 32 mmol/L (23-31); Chloride 99 mmol/L (98-107); Estimated GFR-MDRD 48; Glucose 84 mg/dL (80-115); Potassium 4.6 mmol/L (3.5-5.1); Sodium 138 mmol/L (136-145)
--- NOTE | 2019-05-21 13:41 | PDOC.CPN ---
- Subjective Date: 05/21/19 Time: 13:39 Interval history: EP PROGRESS NOTE:05/21/19 Follow up for VT, ICD management, and medication guidance. Feeling well this AM but still having some shortness of breath, worsened by lying down. - Review of Systems Respiratory: reports: shortness of breath. denies: cough, congestion, exercise intolerance Cardiovascular: denies: chest pain, palpitation, edema, paroxysmal nocturnal dyspnea, orthopnea Gastrointestinal: denies: nausea, vomiting, diarrhea, constipation, abd pain, GI bleeding Musculoskeletal: denies: pain, tenderness, stiffness, swelling, arthritis/ arthralgias - Objective Allergies/Adverse Reactions: Allergies Allergy/AdvReac Type Severity Reaction Status Date / Time Penicillins Allergy Verified 05/19/19 14:32 Visit Medications: Current Medications Acetaminophen (Tylenol) 650 mg PO Q4H PRN PRN Reason: Headache/Fever or Pain (1-3) Hydrocodone Bitart/Acetaminophen ([place] 5/325) 1 tab PO Q4H PRN PRN Reason: PAIN 4-6 Hydrocodone Bitart/Acetaminophen ([place] 5/325) 2 tab PO Q4H PRN PRN Reason: PAIN 7-10 Al Hydroxide/Mg Hydroxide (Maalox) 30 ml PO Q6H PRN PRN Reason: Heartburn or Indigestion Allopurinol (Zyloprim) 300 mg PO DAILY [facility] Last Admin: 05/21/19 08:20 Dose: 300 mg Bisacodyl (Dulcolax) 10 mg PO DAILY PRN PRN Reason: CONSTIPATION Bismuth Subsalicylate (Pepto Bismol) 2 tab PO Q1H PRN PRN Reason: Diarrhea/Loose Stools Calcium Carbonate (Tums) 1,000 mg PO Q4H PRN PRN Reason: Heartburn or Indigestion Famotidine (Pepcid) 20 mg SLOW IVP Q12HR [facility] Last Admin: 05/21/19 08:20 Dose: 20 mg Furosemide (Lasix) 40 mg SLOW IVP 0600,1400 [facility] Last Admin: 05/21/19 06:21 Dose: 40 mg Amiodarone HCl 450 mg/Miscellaneous Medication 1 each/ Dextrose/Water 259 mls @ 0 mls/hr IVPB INF [facility]; Protocol Last Admin: 05/20/19 00:43 Dose: 259 mls Dobutamine HCl/Dextrose 500 mg (/ Device) 250 mls @ 0 mls/hr IVPB INF [facility]; Protocol Last Admin: 05/20/19 12:26 Dose: 250 mls Lactulose (Lactulose) 20 gm PO DAILY PRN PRN Reason: CONSTIPATION Magnesium Hydroxide (Milk Of Magnesium) 30 ml PO Q6H PRN PRN Reason: Constipation Last Admin: 05/20/19 02:16 Dose: 30 ml Ondansetron HCl (Zofran Odt) 4 mg PO Q6H PRN PRN Reason: Nausea/Vomiting Rivaroxaban (Xarelto) 20 mg PO 1800 [facility] Last Admin: 05/20/19 17:16 Dose: 20 mg Senna (Senokot) 2 tab PO HS PRN PRN Reason: Constipation Sodium Chloride (Flush - Normal Saline) 10 ml IVF Q12HR [facility] Last Admin: 05/21/19 08:21 Dose: 10 ml Sodium Chloride (Flush - Normal Saline) 10 ml IVF PRN PRN PRN Reason: Saline Flush Spironolactone (Aldactone) 25 mg PO QAM-WM [facility] Last Admin: 05/21/19 08:20 Dose: 25 mg Zolpidem Tartrate (Ambien) 5 mg PO HS PRN PRN Reason: Insomnia Vital Signs & Weight: Vital Signs Temp Pulse Ox 05/21/19 12:00 97.6 F 05/21/19 07:46 97 05/21/19 07:00 97.6 F 05/21/19 04:00 97.7 F Admit Weight 209 lb 8 oz Weight 197 lb 8 oz - Physical Exam General: alert & oriented x3 HEENT: mucus membranes moist Neck: supple neck, JVD/HJR Cardiac: regular rate and rhythm Lungs: clear to auscultation Neuro: grossly intact Abdomen: soft, non-tender, other (+ hepatojugular reflux) Extremities: no edema Musculoskeletal: no pain - Labs Result Diagrams: 05/19/19 15:07 05/21/19 10:38 - Telemetry Sinus rhythms and dysrhythmias: sinus rhythm (NSVT, short runs seen on tele) - Assessment/Plan Assessment/Plan: 1.Ventricular tachycardia - NSVT runs seen on tele. Less frequent and brief. - likely provoked by recent CHF exacerbation - if recurrence is seen, resume amiodarone 2. Cardiomyopathy, CHF exacerbation - remains on dobutamine, per cardiology -05/21/19 2D echo: EF 15-20%. Severe MR 3. ICD, single chamber - normal operation - ATP therapies on, successful at terminating his prior VT events. Optimize HF. Seeing less VT on monitor but continues to have 1-2 runs of NSVT. If becomes more sustained resume amiodarone for short term therapy. Will reassess Friday.
[2019-05-21] MEDS: Rivaroxaban 10 MG TAB PO SCH (18:19)
--- NOTE | 2019-05-21 19:39 | PRG ---
DATE OF SERVICE: 05/21/2019 SUBJECTIVE: Ridge Dumont was threading beads, sitting up in his bed. He said he does this for stress relief. 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 OBJECTIVE: VITAL SIGNS: He is afebrile. Heart rate is in the 90s, blood pressure 101/78, respiratory rates in the 20s. LUNGS: Clear. HEART: Regular rhythm. ABDOMEN: Soft. LABORATORY DATA: Have been reviewed. Creatinine is 1.3. Hemoglobin is 13.5. IMPRESSION: 1. Acute on chronic systolic heart failure. 2. History of placement of defibrillator. 3. Nonischemic cardiomyopathy. 4. History of nonsustained ventricular tachycardia. He appears to be improving and clinically, he says he is 100% better than when he came in. He said he just knew something was wrong when he came in . Job ID: [id number]
[2019-05-21] MEDS: DOBUTamine 500 mg/250 ml 500 MG in Premix Bag 1 BAG IVPB SCH (21:35)
[2019-05-22] MEDS: Furosemide 40 MG/4 ML VIAL SLOW IVP SCH ×2 (05:55→14:13)
[2019-05-22] MEDS: Allopurinol 300 MG TAB PO SCH (08:25)
[2019-05-22] MEDS: Spironolactone 25 MG TAB PO SCH (08:25)
[2019-05-22] MEDS: Famotidine/PF 20 mg/2ml Vial SLOW IVP SCH ×2 (08:25→20:22)
[2019-05-22] MEDS: Rivaroxaban 10 MG TAB PO SCH (18:21)
--- NOTE | 2019-05-22 21:31 | PRG ---
DATE OF SERVICE: 05/22/2019 SUBJECTIVE: Ridge Dumont has no complaints. Apparently, he had asymptomatic nonsustained ventricular tachycardia last night, so he stays in the Critical Care Unit for now. OBJECTIVE: VITAL SIGNS: He is afebrile. Oximetry is 98% on room air, blood pressure 134/77, heart rate is in the 90s. He is in sinus rhythm. Respiratory rate is in the teens. LUNGS: Clear. HEART: Regular rhythm. ABDOMEN: Soft and nontender. LABORATORY DATA: He has no new lab. IMPRESSION: 1. Congestive heart failure. 2. Nonsustained ventricular tachycardia. 3. Acute on chronic systolic heart failure. 4. History of placement of defibrillator. 5. Appears to be clinically improving. We will defer to Cardiology. There are no respiratory issues at this time. Job ID: [id number]
[2019-05-23] MEDS: Furosemide 40 MG/4 ML VIAL SLOW IVP SCH ×2 (05:34→14:27)
[2019-05-23] MEDS: Allopurinol 300 MG TAB PO SCH (09:40)
[2019-05-23] MEDS: Famotidine/PF 20 mg/2ml Vial SLOW IVP SCH ×2 (09:40→20:37)
[2019-05-23] MEDS: Spironolactone 25 MG TAB PO SCH (09:40)
[2019-05-23] MEDS: DOBUTamine 500 mg/250 ml 500 MG in Premix Bag 1 BAG IVPB SCH (14:27)
[2019-05-23 17:34] LABS: Anion Gap 15 mmol/L (10-20); BUN (Urea Nitrogen) 23 mg/dL (8.4-25.7); Calc. Creatinine Clearance 54 mL/min (70-130); Calcium 9.8 mg/dL (7.8-10.44); Carbon Dioxide 29 mmol/L (23-31); Chloride 96 mmol/L (98-107); Estimated GFR-MDRD 43; Glucose 107 mg/dL (80-115); Potassium 4.1 mmol/L (3.5-5.1); Sodium 136 mmol/L (136-145)
[2019-05-23] MEDS: Rivaroxaban 10 MG TAB PO SCH (18:33)
[2019-05-23] MEDS: Amiodarone 200 MG TAB PO SCH (20:37)
[2019-05-24] MEDS: Furosemide 40 MG/4 ML VIAL SLOW IVP SCH (05:25)
[2019-05-24] MEDS: Amiodarone 200 MG TAB PO SCH ×2 (08:43→20:42)
[2019-05-24] MEDS: Allopurinol 300 MG TAB PO SCH (08:43)
[2019-05-24] MEDS: Spironolactone 25 MG TAB PO SCH (08:43)
[2019-05-24] MEDS: Famotidine/PF 20 mg/2ml Vial SLOW IVP SCH ×2 (08:44→20:42)
[2019-05-24 09:44] LABS: Hemoglobin 15.7 g/dL (14.0-18.0); Platelet Count 320 thou/uL (130-400)
--- NOTE | 2019-05-24 11:21 | PDOC.CPN ---
- Subjective Date: 05/24/19 Time: 11:20 Interval history: EP PROGRESS NOTE:05/24/19 Follow up for VT, ICD management, and medication guidance. Feeling well this AM but still having no chest dyscomforts, palpitations or dizziness. . Denies palpitations. - Review of Systems Respiratory: denies: cough, congestion, shortness of breath, exercise intolerance Cardiovascular: denies: chest pain, palpitation, edema, paroxysmal nocturnal dyspnea, orthopnea Musculoskeletal: reports: arthritis/arthralgias Neurological: reports: numbness - Objective Allergies/Adverse Reactions: Allergies Allergy/AdvReac Type Severity Reaction Status Date / Time Penicillins Allergy Verified 05/19/19 14:32 Visit Medications: Current Medications Acetaminophen (Tylenol) 650 mg PO Q4H PRN PRN Reason: Headache/Fever or Pain (1-3) Hydrocodone Bitart/Acetaminophen ([place] 5/325) 1 tab PO Q4H PRN PRN Reason: PAIN 4-6 Hydrocodone Bitart/Acetaminophen ([place] 5/325) 2 tab PO Q4H PRN PRN Reason: PAIN 7-10 Al Hydroxide/Mg Hydroxide (Maalox) 30 ml PO Q6H PRN PRN Reason: Heartburn or Indigestion Allopurinol (Zyloprim) 300 mg PO DAILY [facility] Last Admin: 05/24/19 08:43 Dose: 300 mg Amiodarone HCl (Cordarone) 400 mg PO TID [facility] Last Admin: 05/24/19 08:43 Dose: 400 mg Bisacodyl (Dulcolax) 10 mg PO DAILY PRN PRN Reason: CONSTIPATION Bismuth Subsalicylate (Pepto Bismol) 2 tab PO Q1H PRN PRN Reason: Diarrhea/Loose Stools Calcium Carbonate (Tums) 1,000 mg PO Q4H PRN PRN Reason: Heartburn or Indigestion Famotidine (Pepcid) 20 mg SLOW IVP Q12HR [facility] Last Admin: 05/24/19 08:44 Dose: 20 mg Furosemide (Lasix) 40 mg SLOW IVP 0600,1400 [facility] Last Admin: 05/24/19 05:25 Dose: 40 mg Amiodarone HCl 450 mg/Miscellaneous Medication 1 each/ Dextrose/Water 259 mls @ 0 mls/hr IVPB INF [facility]; Protocol Last Admin: 05/20/19 00:43 Dose: 259 mls Lactulose (Lactulose) 20 gm PO DAILY PRN PRN Reason: CONSTIPATION Magnesium Hydroxide (Milk Of Magnesium) 30 ml PO Q6H PRN PRN Reason: Constipation Last Admin: 05/20/19 02:16 Dose: 30 ml Ondansetron HCl (Zofran Odt) 4 mg PO Q6H PRN PRN Reason: Nausea/Vomiting Rivaroxaban (Xarelto) 20 mg PO 1800 [facility] Last Admin: 05/23/19 18:33 Dose: 20 mg Senna (Senokot) 2 tab PO HS PRN PRN Reason: Constipation Sodium Chloride (Flush - Normal Saline) 10 ml IVF Q12HR [facility] Last Admin: 05/24/19 08:44 Dose: 10 ml Sodium Chloride (Flush - Normal Saline) 10 ml IVF PRN PRN PRN Reason: Saline Flush Last Admin: 05/22/19 05:55 Dose: 10 ml Spironolactone (Aldactone) 25 mg PO QAM-WM [facility] Last Admin: 05/24/19 08:43 Dose: 25 mg Zolpidem Tartrate (Ambien) 5 mg PO HS PRN PRN Reason: Insomnia Vital Signs & Weight: Vital Signs Temp Pulse Ox 05/24/19 08:00 98.0 F 98 05/24/19 04:00 97.3 F L 05/24/19 00:00 98.1 F Admit Weight 209 lb 8 oz Weight 180 lb 8 oz - Physical Exam HEENT: normocephaly Neck: supple neck Cardiac: regular rate and rhythm Lungs: clear to auscultation, no wheeze, rales, rhonchi Neuro: grossly intact Abdomen: active bowel sounds, soft Extremities: other: - Labs Result Diagrams: 05/24/19 09:29 05/23/19 17:07 - Assessment/Plan Assessment/Plan: 1.Ventricular tachycardia - NSVT runs seen on tele. Less frequent and brief. - likely provoked by recent CHF exacerbation - Hence recurrence is seen over wekend after coming off inotropics, Dr [place]aña resumed PO amiodarone 2. Cardiomyopathy, CHF exacerbation - improved over weekend. Normovolemic. - Came off dobutamine last night, per cardiology -05/21/19 2D echo: EF 15-20%. Severe MR - Continue to optimize HF regimen as per cards. 3. ICD, single chamber - normal operation - ATP therapies on, successful at terminating his prior VT events. Optimize HF. Seeing less VT on monitor but continues to have 1-2 runs of NSVT. Continue amiodarone for short term therapy.
[2019-05-24 11:36] LABS: Anion Gap 12 mmol/L (10-20); BUN (Urea Nitrogen) 29 mg/dL (8.4-25.7); Calc. Creatinine Clearance 46 mL/min (70-130); Calcium 9.8 mg/dL (7.8-10.44); Carbon Dioxide 32 mmol/L (23-31); Chloride 94 mmol/L (98-107); Estimated GFR-MDRD 37; Glucose 98 mg/dL (80-115); Potassium 4.1 mmol/L (3.5-5.1); Sodium 134 mmol/L (136-145)
[2019-05-24] MEDS ORDERED: Sodium Chloride 0.9% 250 ML 250 ML IVPB SCH (13:30)
[2019-05-24] MEDS: Sodium Chloride 0.9% 1,000 ML IV SCH (13:45)
--- NOTE | 2019-05-24 15:12 | CON ---
DATE OF CONSULTATION: 05/24/2019 SUBJECTIVE: Mr. Dumont is doing well. No current complaints. He has lost 25 pounds in the last several days. He has been diuresed and does feel well. I appreciate an EP followup. OBJECTIVE: VITAL SIGNS: Blood pressure 114/88, pulse 103, respirations 20. LUNGS: Clear to auscultation. HEART: Regular rate and rhythm. ABDOMEN: Soft, nontender, and nondistended. EXTREMITIES: No edema. PERTINENT LABORATORY DATA: Hemoglobin 15.7, creatinine 1.82, which is up from 1.62. IMPRESSION: 1. Acute on chronic systolic heart failure. 2. Nonsustained ventricular tachycardia. 3. Nonischemic cardiomyopathy. RECOMMENDATIONS: 1. Amiodarone has been started over the weekend. 2. Dobutamine has been discontinued. 3. Continue Xarelto. 4. Add low-dose Coreg. 5. Avoid MARILU inhibitor therapy until his creatinine improves. 6. Anticipate discharge in a.m. if stable. Job ID: [id number]
[2019-05-24] MEDS: Rivaroxaban 10 MG TAB PO SCH (17:46)
[2019-05-24] MEDS: Carvedilol 3.125 MG TAB PO SCH (20:42)
[2019-05-25] MEDS: Sodium Chloride 0.9% 1,000 ML IV SCH ×2 (00:45→17:04)
[2019-05-25] MEDS: Amiodarone 200 MG TAB PO SCH (08:04)
[2019-05-25] MEDS: Famotidine/PF 20 mg/2ml Vial SLOW IVP SCH (08:04)
[2019-05-25] MEDS: Allopurinol 300 MG TAB PO SCH (08:05)
[2019-05-25] MEDS: Spironolactone 25 MG TAB PO SCH (08:05)
[2019-05-25] MEDS: Carvedilol 3.125 MG TAB PO SCH (08:05)
[2019-05-25 08:20] LABS: Anion Gap 11 mmol/L (10-20); BUN (Urea Nitrogen) 31 mg/dL (8.4-25.7); Calc. Creatinine Clearance 55 mL/min (70-130); Carbon Dioxide 29 mmol/L (23-31); Chloride 100 mmol/L (98-107); Estimated GFR-MDRD 45; Glucose 103 mg/dL (80-115); Potassium 4.2 mmol/L (3.5-5.1); Sodium 136 mmol/L (136-145)
[2019-05-25 08:33] VITALS: BMI 29.5
--- NOTE | 2019-05-25 13:00 | PDOC.CPN ---
- Subjective Date: 05/25/19 Time: 08:00 Interval history: EP PROGRESS NOTE:05/25/19 Follow up for VT, ICD management, and medication guidance. Feeling well this AM , back to baseline. no chest discomforts, palpitations or dizziness. - Review of Systems General: denies: fever/chills, weight/appetite/sleep changes, night sweats, fatigue Respiratory: denies: cough, congestion, shortness of breath, exercise intolerance Cardiovascular: denies: chest pain, palpitation, edema, paroxysmal nocturnal dyspnea, orthopnea Gastrointestinal: denies: nausea, vomiting, diarrhea, constipation, abd pain, GI bleeding Musculoskeletal: denies: pain, tenderness, stiffness, swelling, arthritis/ arthralgias Neurological: denies: numbness, syncope, seizure, weakness - Objective Allergies/Adverse Reactions: Allergies Allergy/AdvReac Type Severity Reaction Status Date / Time Penicillins Allergy Verified 05/19/19 14:32 Visit Medications: Current Medications Acetaminophen (Tylenol) 650 mg PO Q4H PRN PRN Reason: Headache/Fever or Pain (1-3) Last Admin: 05/24/19 19:18 Dose: 650 mg Hydrocodone Bitart/Acetaminophen ([place] 5/325) 1 tab PO Q4H PRN PRN Reason: PAIN 4-6 Hydrocodone Bitart/Acetaminophen ([place] 5/325) 2 tab PO Q4H PRN PRN Reason: PAIN 7-10 Al Hydroxide/Mg Hydroxide (Maalox) 30 ml PO Q6H PRN PRN Reason: Heartburn or Indigestion Allopurinol (Zyloprim) 300 mg PO DAILY [facility] Last Admin: 05/25/19 08:05 Dose: 300 mg Amiodarone HCl (Cordarone) 400 mg PO BID [facility] Last Admin: 05/25/19 08:04 Dose: 400 mg Bisacodyl (Dulcolax) 10 mg PO DAILY PRN PRN Reason: CONSTIPATION Bismuth Subsalicylate (Pepto Bismol) 2 tab PO Q1H PRN PRN Reason: Diarrhea/Loose Stools Calcium Carbonate (Tums) 1,000 mg PO Q4H PRN PRN Reason: Heartburn or Indigestion Carvedilol (Coreg) 3.125 mg PO BID [facility] Last Admin: 05/25/19 08:05 Dose: 3.125 mg Famotidine (Pepcid) 20 mg SLOW IVP Q12HR [facility] Last Admin: 05/25/19 08:04 Dose: 20 mg Amiodarone HCl 450 mg/Miscellaneous Medication 1 each/ Dextrose/Water 259 mls @ 0 mls/hr IVPB INF [facility]; Protocol Last Admin: 05/20/19 00:43 Dose: 259 mls Sodium Chloride (Normal Saline 0.9%) 1,000 mls @ 75 mls/hr IV .[id number] [facility] Last Admin: 05/25/19 00:45 Dose: 1,000 mls Lactulose (Lactulose) 20 gm PO DAILY PRN PRN Reason: CONSTIPATION Magnesium Hydroxide (Milk Of Magnesium) 30 ml PO Q6H PRN PRN Reason: Constipation Last Admin: 05/20/19 02:16 Dose: 30 ml Ondansetron HCl (Zofran Odt) 4 mg PO Q6H PRN PRN Reason: Nausea/Vomiting Rivaroxaban (Xarelto) 20 mg PO 1800 [facility] Last Admin: 05/24/19 17:46 Dose: 20 mg Senna (Senokot) 2 tab PO HS PRN PRN Reason: Constipation Sodium Chloride (Flush - Normal Saline) 10 ml IVF Q12HR [facility] Last Admin: 05/25/19 08:05 Dose: 10 ml Sodium Chloride (Flush - Normal Saline) 10 ml IVF PRN PRN PRN Reason: Saline Flush Last Admin: 05/22/19 05:55 Dose: 10 ml Spironolactone (Aldactone) 25 mg PO QAM-WM [facility] Last Admin: 05/25/19 08:05 Dose: 25 mg Zolpidem Tartrate (Ambien) 5 mg PO HS PRN PRN Reason: Insomnia Vital Signs & Weight: Vital Signs Temp Pulse Ox 05/25/19 08:00 97.8 F 05/25/19 07:25 90 L 05/25/19 04:00 97.4 F L Admit Weight 209 lb 8 oz Weight 184 lb 2 oz - Physical Exam General: alert & oriented x3, appears well, no apparent distress HEENT: mucus membranes moist, normocephaly Neck: supple neck, midline trachea, no JVD/HJR Cardiac: regular rate and rhythm Lungs: clear to auscultation, normal breath sounds Neuro: grossly intact Abdomen: unremarkable, active bowel sounds - Labs Result Diagrams: 05/24/19 09:29 05/25/19 07:42 - Telemetry Sinus rhythms and dysrhythmias: sinus rhythm (NSVT) - Assessment/Plan Assessment/Plan: Assessment/Plan: 1.Ventricular tachycardia - NSVT runs seen on tele. Less frequent and brief. - likely provoked by recent CHF exacerbation - Hence recurrence is seen over wekend after coming off inotropics, Dr [place] resumed PO amiodarone 2. Cardiomyopathy, CHF exacerbation - improved over weekend. Normovolemic. - Came off dobutamine last night, per cardiology -05/21/19 2D echo: EF 15-20%. Severe MR - Continue to optimize HF regimen as per cards. 3. ICD, single chamber - normal operation - ATP therapies on, successful at terminating his prior VT events. Optimize HF. Seeing less VT on monitor but continues to have 1-2 runs of NSVT. Continue amiodarone for short term therapy. OK to transfer out of tele by EP. Will need to DC on amiodarone taper, ending at 200mg PO daily by one month.
--- NOTE | 2019-05-25 13:52 | DIS ---
DATE OF ADMISSION: 05/19/2019 DATE OF DISCHARGE: 05/25/2019 DISCHARGE DIAGNOSES: 1. Acute on chronic systolic heart failure. 2. Ventricular tachycardia. DISPOSITION: Home. MEDICATIONS: Include, 1. Allopurinol 300 mg daily. 2. Amiodarone 400 mg p.o. b.i.d. 3. Coreg 3.125 one p.o. b.i.d. 4. Lasix 20 mg daily. 5. Xarelto 20 mg daily. 6. Spironolactone 25 mg 1/2 tab daily. HOSPITAL COURSE: Mr. Dumont is a 68-year-old gentleman with history nonischemic cardiomyopathy, who recently presented with fluid overload to the office. He was subsequently admitted. He was placed overnight and given one dose of Lasix. He had significant hypotension and required dobutamine. He also had ventricular ectopy and nonsustained VT. He was subsequently transferred to the ICU for further disposition. He did well over the weekend while in the ICU. He diuresed. He lost close to 30 pounds since his admission. His blood pressure and heart rate remained stable. EP was consulted in addition to Pulmonary. He was placed on amiodarone to suppress his ventricular ectopy. His creatinine did increase from 1.2 to 1.8, but decreased on discharge to 1.5. The patient was ambulating without issues and shortness of breath. CONDITION ON DISCHARGE: Stable. Job ID: [id number]
[2019-05-25] MEDS: Rivaroxaban 10 MG TAB PO SCH (17:45)
[2019-05-25 18:06] VITALS: TEMP 98.2
== END 2019-05-25 17:55 | disposition home or self-care (01) | DRG 292 ==
LOC: 2NO 14:09 → CCU 05-20 13:55
PROVIDERS: ADMIT Internal Medicine Cardiovascular Disease; ATTEND Internal Medicine Cardiovascular Disease
DX: I11.0 Hypertensive heart disease with heart failure (principal); I47.2 Ventricular tachycardia; I48.19 Other persistent atrial fibrillation; I50.23 Acute on chronic systolic (congestive) heart failure; I42.8 Other cardiomyopathies; F17.200 Nicotine dependence, unspecified, uncomplicated; I95.9 Hypotension, unspecified; Z95.810 Presence of automatic (implantable) cardiac defibrillator; Z88.0 Allergy status to penicillin; Z79.01 Long term (current) use of anticoagulants; Z86.14 Personal history of Methicillin resistant Staphylococcus aureus infection
CPT/HCPCS: 36415; 71046; 80048; 80053; 80076; 81001; 83735; 83880; 84443; 85014; 85018; 85025; 85049; 87040; 90471; 90662; 93005; 93010; 93306; 93798; G0008; J0282; J1250; J1940; J7050; J7070; S0028

== ENCOUNTER 2020-10-16 15:32 | Outpatient (CLI) | payer MEDICARE, OTHER | END 2020-10-16 15:33 | disposition home or self-care (01) | LOC: BICRAD 15:32 | PROVIDERS: ATTEND Nurse Practitioner | DX: I47.2 Ventricular tachycardia (principal); I51.7 Cardiomegaly; J98.11 Atelectasis | CPT/HCPCS: 36415; 71046; 80076; 84436; 84443; 84479 ==

== ENCOUNTER 2021-03-05 11:16 | Inpatient (IN) | payer MEDICARE, OTHER ==
[2021-03-05 11:51] LABS: #Lymphocytes 2.3 thou/uL (1.20-3.40); #Monocytes 0.6 thou/uL (0.11-0.59); #Neutrophils 5.7 thou/uL (1.40-6.50); %Basophils 0.4 % (0.0-1.0); %Eosinophils 0.3 % (0.0-10.0); %Lymphocytes 26.2 % (21.0-51.0); %Monocytes 6.9 % (0.0-10.0); %Neutrophils 66.2 % (42.0-75.0); Hemoglobin 14.1 g/dL (14.0-18.0); Mean Corpuscular HGB CONC 33.6 g/dL (32.0-36.0); Mean Corpuscular Hemoglobin 31.2 pg (27.0-31.0); Mean Platelet Volume 6.5 fL (7.4-10.4); Platelet Count 313 thou/uL (130-400); RBC Distribution Width 12.2 % (11.5-14.5); Red Blood Cell (RBC) Count 4.52 mill/uL (4.70-6.10); White Blood Cell (WBC) Count 8.6 thou/uL (4.8-10.8)
[2021-03-05 12:20] LABS: ALT (SGPT) 16 U/L (8-55); AST (SGOT) 14 U/L (5-34); Albumin 4.5 g/dL (3.4-4.8); Alkaline Phosphatase 60 U/L (40-110); Anion Gap 12 mmol/L (10-20); BUN (Urea Nitrogen) 43 mg/dL (8.4-25.7); Bilirubin, Total 0.9 mg/dL (0.2-1.2); Calc. Creatinine Clearance 0 mL/min (70-130); Calcium 9.7 mg/dL (7.8-10.44); Carbon Dioxide 26 mmol/L (23-31); Chloride 103 mmol/L (98-107); Globulin 3.1 g/dL (2.4-3.5); Glucose 109 mg/dL (80-115); Protein, Total 7.6 g/dL (5.8-8.1); Sodium 137 mmol/L (136-145)
[2021-03-05 12:29] LABS: SARS-CoV-2 NAA Rapid Test Not Detected (NotDetected)
[2021-03-05 12:46] LABS: Bilirubin Negative (Negative); Blood, Urine Negative (Negative); Clarity Clear (Clear); Glucose, Urine (Dipstick) Normal (Negative); Ketone, Urine Negative (Negative); Leukocyte Negative Leu/uL (Negative); Nitrite Negative (Negative); Protein, Urine (Dipstick) Negative (Neg-Trace); Specific Gravity, Urine 1.009 (1.002-1.036); Urobilinogen Normal mg/dL (Less than 2)
[2021-03-05] MEDS ORDERED: Acetaminophen 325 MG TAB PO PRN (14:03)
[2021-03-05] MEDS ORDERED: hydrALAZINE 20 MG/ML VIAL SLOW IVP PRN (14:03)
[2021-03-05] MEDS ORDERED: Senokot S 8.6-50 MG TAB PO PRN (14:03)
[2021-03-05] MEDS ORDERED: Bisacodyl 5 MG TAB PO PRN (14:03)
[2021-03-05] MEDS ORDERED: Ondansetron ODT 4 MG TAB PO PRN (14:03)
[2021-03-05] MEDS ORDERED: Acetaminophen 650 MG Suppository PR PRN (14:03)
[2021-03-05] MEDS ORDERED: Ondansetron PF 4 MG/2 ML Vial IVP PRN (14:03)
[2021-03-05] MEDS ORDERED: Aspirin 325 mg Enteric Coated Tablet PO SCH (14:15)
[2021-03-05] MEDS ORDERED: Communication Order-Pharmacy FS ONE (14:52)
[2021-03-05 15:23] LABS: Magnesium 2.2 mg/dL (1.6-2.6)
[2021-03-05 15:29] LABS: Troponin I Less than 0.010 ng/mL (< 0.028)
[2021-03-05 18:22] LABS: Troponin I Less than 0.010 ng/mL (< 0.028)
[2021-03-05 22:37] VITALS: BMI 31.6
[2021-03-06 04:35] LABS: #Basophils 0.1 thou/uL (0.0-0.2); #Lymphocytes 2.3 thou/uL (1.20-3.40); #Monocytes 0.6 thou/uL (0.11-0.59); #Neutrophils 6.5 thou/uL (1.40-6.50); %Basophils 0.6 % (0.0-1.0); %Eosinophils 0.1 % (0.0-10.0); %Lymphocytes 24.4 % (21.0-51.0); %Monocytes 6.4 % (0.0-10.0); %Neutrophils 68.6 % (42.0-75.0); Hemoglobin 14.3 g/dL (14.0-18.0); Mean Corpuscular Hemoglobin 32.6 pg (27.0-31.0); Mean Corpuscular Volume 93.1 fL (78.0-98.0); Mean Platelet Volume 6.4 fL (7.4-10.4); Platelet Count 281 thou/uL (130-400); RBC Distribution Width 12.3 % (11.5-14.5); Red Blood Cell (RBC) Count 4.39 mill/uL (4.70-6.10); White Blood Cell (WBC) Count 9.5 thou/uL (4.8-10.8)
[2021-03-06 04:49] LABS: Anion Gap 14 mmol/L (10-20); BUN (Urea Nitrogen) 44 mg/dL (8.4-25.7); Calc. Creatinine Clearance 37 mL/min (70-130); Calcium 9.7 mg/dL (7.8-10.44); Carbon Dioxide 25 mmol/L (23-31); Cardiac Risk 5.3 (Less than 4.5); Chloride 104 mmol/L (98-107); Cholesterol 190 mg/dl (< 200 Desired); Glucose 98 mg/dL (80-115); HDL Cholesterol 36 mg/dL (>60 Neg Risk); LDL Cholesterol, Calculated 128 mg/dL; Potassium 4.4 mmol/L (3.5-5.1); Sodium 139 mmol/L (136-145); Triglycerides 130 mg/dL (Less than 150)
[2021-03-06] MEDS ORDERED: Enoxaparin Sodium 100 MG/ML SYRINGE SC SCH (09:00)
[2021-03-06] MEDS ORDERED: Rivaroxaban 10 MG TAB PO SCH (09:00)
[2021-03-06] MEDS ORDERED: Non-Formulary Item 1 EACH (Cetirizine Hcl [Allergy Relief] 10 MG Capsule) PO PRN (09:48)
[2021-03-06] MEDS ORDERED: Loratadine 10 MG TAB PO PRN (10:04)
[2021-03-06] MEDS ORDERED: Sodium Chloride 0.9% 1,000 ML IV SCH (22:15)
[2021-03-07 08:06] LABS: Anion Gap 11 mmol/L (10-20); BUN (Urea Nitrogen) 32 mg/dL (8.4-25.7); Calc. Creatinine Clearance 46 mL/min (70-130); Calcium 9.3 mg/dL (7.8-10.44); Carbon Dioxide 26 mmol/L (23-31); Chloride 103 mmol/L (98-107); Glucose 97 mg/dL (80-115); Potassium 3.8 mmol/L (3.5-5.1); Sodium 136 mmol/L (136-145)
[2021-03-07] MEDS ORDERED: Rivaroxaban 10 MG TAB PO SCH (09:00)
[2021-03-07] MEDS ORDERED: Amiodarone 200 MG TAB PO SCH (09:00)
[2021-03-07 12:14] VITALS: BP 113/72; TEMP 98.7
== END 2021-03-07 15:49 | disposition home or self-care (01) | DRG 682 ==
LOC: ERS 11:16 → ERHOLD 12:54 → 2NO 20:12 → OBSVTOIN 03-06 14:21
PROVIDERS: ADMIT Internal Medicine; ATTEND Internal Medicine
DX: N17.9 Acute kidney failure, unspecified (principal); G93.41 Metabolic encephalopathy; I50.22 Chronic systolic (congestive) heart failure; I13.0 Hypertensive heart and chronic kidney disease with heart failure and stage 1 through stage 4 chronic kidney disease, or unspecified chronic kidney disease; I25.5 Ischemic cardiomyopathy; E78.5 Hyperlipidemia, unspecified; E86.0 Dehydration; I25.10 Atherosclerotic heart disease of native coronary artery without angina pectoris; D64.9 Anemia, unspecified; I95.9 Hypotension, unspecified; N18.30 Chronic kidney disease, stage 3 unspecified; Z20.822 Contact with and (suspected) exposure to COVID-19; I48.91 Unspecified atrial fibrillation; Z79.01 Long term (current) use of anticoagulants; Z95.810 Presence of automatic (implantable) cardiac defibrillator; Z88.0 Allergy status to penicillin; Z79.899 Other long term (current) drug therapy
CPT/HCPCS: 0240U; 36415; 70450; 71045; 76770; 80048; 80053; 80061; 81003; 83605; 83735; 83880; 84443; 84484; 85025; 87040; 87086; 93005; 93306; 94760; 95712; 95819; 95957; 96372; G0378; J1650; P9045

== ENCOUNTER 2022-06-17 11:17 | Outpatient (CLI) | payer MEDICARE, OTHER | END 2022-06-17 11:18 | disposition home or self-care (01) | LOC: BICRAD 11:17 | PROVIDERS: ATTEND Internal Medicine Cardiovascular Disease | DX: Z92.29 Personal history of other drug therapy (principal) | CPT/HCPCS: 36415; 71046; 80076; 84439; 84443; 84479 ==

== ENCOUNTER 2022-09-26 08:02 | Outpatient (CLI) | payer MEDICARE, OTHER | END 2022-09-26 08:03 | disposition home or self-care (01) | LOC: LABBT 08:02 | PROVIDERS: ATTEND Internal Medicine Cardiovascular Disease | DX: Z01.812 Encounter for preprocedural laboratory examination (principal) | CPT/HCPCS: 80053; 81003; 85027; 85610; 85730; 86850; 86900; 86901; 93005; 93010 ==

== ENCOUNTER 2022-09-26 08:15 | Inpatient (IN) | payer MEDICARE, OTHER ==
[2022-09-26 09:24] LABS: Bilirubin Neg (Negative); Blood, Urine Negative (Negative); Clarity Slightly Cloudy (Clear); Glucose, Urine (Dipstick) Normal (Negative); Ketone, Urine Negative (Negative); Leukocyte 100 (Negative); Nitrite Negative (Negative); Protein, Urine (Dipstick) Negative (Neg-Trace); Specific Gravity, Urine 1.015 (1.005-1.030); Urobilinogen Normal mg/dL (Less than 2)
[2022-09-26 09:28] LABS: Hemoglobin 14.2 g/dL (13.5-17.5); Mean Corpuscular HGB CONC 32.7 g/dL (32.0-36.0); Mean Corpuscular Volume 88.8 fl (81.2-95.1); Mean Platelet Volume 8.8 fl (7.4-10.4); Platelet Count 296 10x3/uL (150-450); RBC Distribution Width 13.7 % (11.5-14.5); Red Blood Cell (RBC) Count 4.89 10x6/uL (4.32-5.72); White Blood Cell (WBC) Count 6.8 10x3/uL (3.5-10.5)
[2022-09-26 09:44] LABS: ALT (SGPT) 21 U/L (8-55); AST (SGOT) 15 U/L (5-34); Albumin 4.3 g/dL (3.4-4.8); Alkaline Phosphatase 64 U/L (40-110); Anion Gap 14 mmol/L (10-20); BUN (Urea Nitrogen) 23 mg/dL (8.4-25.7); Bilirubin, Total 0.6 mg/dL (0.2-1.2); Calc. Creatinine Clearance 0 mL/min (70-130); Calcium 9.1 mg/dL (7.8-10.44); Carbon Dioxide 24 mmol/L (23-31); Chloride 107 mmol/L (98-107); Estimated GFR 42; Globulin 2.5 g/dL (2.4-3.5); Glucose 81 mg/dL (80-115); Potassium 4.6 mmol/L (3.5-5.1); Protein, Total 6.8 g/dL (5.8-8.1); Sodium 140 mmol/L (136-145)
[2022-09-26 09:45] LABS: INR-International Normal Ratio 0.9; PTT 28.1 sec (22.0-33.0); Prothrombin Time 10.2 sec (9.5-12.1)
[2022-10-02] MEDS ORDERED: Heparin 10,000 UNITS/ 10 ML VIAL ONE (11:23)
[2022-10-02] MEDS ORDERED: CEFAZOLIN 1 GM VIAL ONE (11:23)
[2022-10-02] MEDS ORDERED: Protamine Sulfate 50 MG/5 ML VIAL ONE (11:23)
[2022-10-02] MEDS ORDERED: PROPOFOL 200 MG/20 ML VIAL ONE (15:24)
[2022-10-02] MEDS ORDERED: Dexamethasone 20 MG/5 ML VIAL ONE (15:24)
[2022-10-02] MEDS ORDERED: Rocuronium Bromide 10 MG/ML (10ML VIAL) ONE (15:24)
[2022-10-02] MEDS ORDERED: Ondansetron PF 4 MG/2 ML Vial ONE (15:24)
[2022-10-02] MEDS ORDERED: Lidocaine 1% PF 5 ML VIAL ONE (15:24)
[2022-10-02] MEDS ORDERED: Clindamycin/D5W 900 mg/50 ml Premix Bag ONE (15:28)
[2022-10-02] MEDS ORDERED: SUGAMMADEX SODIUM 200 MG/2 ML VIAL ONE (15:29)
[2022-10-02] MEDS ORDERED: FENTANYL 50 MCG/ML 1 ML VIAL ONE (15:29)
[2022-10-02] MEDS ORDERED: Midazolam HCl 2 mg/2 ml Vial ONE (15:29)
[2022-10-02] MEDS ORDERED: Iopamidol 370 76% 100 ML VIAL ONE (17:08)
[2022-10-02 18:05] VITALS: BMI 32.7
[2022-10-02] MEDS ORDERED: Cephalexin 250 MG CAP PO SCH (21:00)
[2022-10-02] MEDS ORDERED: Loratadine 10 MG TAB PO PRN (21:23)
[2022-10-03] MEDS ORDERED: Bumetanide 1 MG TAB PO SCH (07:30)
[2022-10-03] MEDS ORDERED: Carvedilol 25 MG TAB PO SCH (08:00)
[2022-10-03] MEDS ORDERED: Spironolactone 25 MG TAB PO SCH (08:00)
[2022-10-03] MEDS ORDERED: Potassium Chloride 20 MEQ TAB PO SCH (08:00)
[2022-10-03] MEDS ORDERED: Amiodarone 200 MG TAB PO SCH (09:00)
[2022-10-03] MEDS ORDERED: Empagliflozin 10 MG TAB PO SCH (09:00)
[2022-10-03] MEDS ORDERED: Cholecalciferol 1,000 UNITS (25 MCG) TAB PO SCH (09:00)
[2022-10-03] MEDS ORDERED: Allopurinol 300 MG TAB PO SCH (09:00)
[2022-10-03 09:42] VITALS: BP 125/73; TEMP 98.8
[2022-10-03] MEDS ORDERED: Rivaroxaban 15 MG TAB PO SCH (17:00)
== END 2022-10-03 11:47 | disposition home or self-care (01) | DRG 274 ==
LOC: SURG A 10-02 10:25 → 2SW 10-02 17:53
PROVIDERS: ADMIT Internal Medicine Cardiovascular Disease; ATTEND Internal Medicine Cardiovascular Disease
PROC: 02L73DK Occlusion of Left Atrial Appendage with Intraluminal Device, Percutaneous Approach (ICD-10-PCS; principal; 2022-10-02)
PROC: B24BZZ4 Ultrasonography of Heart with Aorta, Transesophageal (ICD-10-PCS; 2022-10-02)
DX: I48.0 Paroxysmal atrial fibrillation (principal); Z00.6 Encounter for examination for normal comparison and control in clinical research program; Z20.822 Contact with and (suspected) exposure to COVID-19; I42.9 Cardiomyopathy, unspecified; I11.0 Hypertensive heart disease with heart failure; I50.9 Heart failure, unspecified; Z79.01 Long term (current) use of anticoagulants; Z79.899 Other long term (current) drug therapy; Z88.0 Allergy status to penicillin
CPT/HCPCS: 33340; 80053; 81003; 85027; 85347; 85610; 85730; 86850; 86900; 86901; 93306; 93312; C1725; C1759; C1760; C1894; J0690; J1100; J1644; J2250; J2405; J2704; J2720; J3010; J3490; Q9967; U0003; U0005

== ENCOUNTER 2022-11-22 11:04 | Day surgery (SDC) | payer MEDICARE, OTHER ==
[2022-11-21 13:56] VITALS: BMI 29.8
[2022-11-21 14:30] LABS: Hemoglobin 14.8 g/dL (13.5-17.5); Mean Corpuscular HGB CONC 33.7 g/dL (32.0-36.0); Mean Corpuscular Hemoglobin 28.8 pg (27.0-33.0); Mean Corpuscular Volume 85.4 fl (81.2-95.1); Mean Platelet Volume 8.5 fl (7.4-10.4); Platelet Count 319 10x3/uL (150-450); RBC Distribution Width 12.9 % (11.5-14.5); Red Blood Cell (RBC) Count 5.14 10x6/uL (4.32-5.72); White Blood Cell (WBC) Count 9.4 10x3/uL (3.5-10.5)
[2022-11-21 15:00] LABS: Anion Gap 16 mmol/L (10-20); BUN (Urea Nitrogen) 24 mg/dL (8.4-25.7); Calc. Creatinine Clearance 51 mL/min (70-130); Calcium 9.5 mg/dL (7.8-10.44); Carbon Dioxide 24 mmol/L (23-31); Chloride 105 mmol/L (98-107); Estimated GFR 46; Glucose 98 mg/dL (80-115); Potassium 4.7 mmol/L (3.5-5.1); Sodium 140 mmol/L (136-145)
[2022-11-22] MEDS ORDERED: PROPOFOL 20 ML ONE (13:48)
== END 2022-11-22 15:10 | disposition home or self-care (01) ==
LOC: SDC 11:04
PROVIDERS: ATTEND Internal Medicine Cardiovascular Disease
PROC: B246ZZ4 Ultrasonography of Right and Left Heart, Transesophageal (ICD-10-PCS; principal; 2022-11-22)
DX: I48.19 Other persistent atrial fibrillation (principal); I08.3 Combined rheumatic disorders of mitral, aortic and tricuspid valves; I47.20 Ventricular tachycardia, unspecified; I42.0 Dilated cardiomyopathy; I13.0 Hypertensive heart and chronic kidney disease with heart failure and stage 1 through stage 4 chronic kidney disease, or unspecified chronic kidney disease; N18.30 Chronic kidney disease, stage 3 unspecified; I50.42 Chronic combined systolic (congestive) and diastolic (congestive) heart failure; Z86.14 Personal history of Methicillin resistant Staphylococcus aureus infection; Z87.891 Personal history of nicotine dependence; Z79.01 Long term (current) use of anticoagulants; Z79.84 Long term (current) use of oral hypoglycemic drugs; Z79.899 Other long term (current) drug therapy; Z88.0 Allergy status to penicillin; Z95.810 Presence of automatic (implantable) cardiac defibrillator; Z95.818 Presence of other cardiac implants and grafts
CPT/HCPCS: 80048; 85027; 93312; J2704

== ENCOUNTER 2023-06-29 14:59 | Inpatient (IN) | payer MEDICARE, OTHER ==
[~2023-06-29 14:59] MED LIST: Iopamidol-370 76% 500 ML MDV (1 ML CHARGE) ONE
[2023-06-29 16:18] LABS: #Monocytes 0.9 thou/uL (0.11-0.59); #Neutrophils 9.3 thou/uL (1.40-6.50); %Basophils 0.3 % (0.0-1.0); %Lymphocytes 15.5 % (21.0-51.0); %Neutrophils 76.1 % (42.0-75.0); Hematocrit 43.4 % (42.0-52.0); Hemoglobin 14.2 g/dL (14.0-18.0); Mean Corpuscular HGB CONC 32.7 g/dL (32.0-36.0); Mean Corpuscular Hemoglobin 29.3 pg (27.0-31.0); Mean Corpuscular Volume 89.5 fl (78.0-98.0); Platelet Count 216 10x3/uL (130-400); RBC Distribution Width 16.8 % (11.5-14.5); Red Blood Cell (RBC) Count 4.85 mill/uL (4.70-6.10); White Blood Cell (WBC) Count 12.2 10x3/uL (4.8-10.8)
[2023-06-29] MEDS ORDERED: Morphine 4 MG/ML VIAL ONE (16:40)
[2023-06-29 16:45] LABS: Troponin I 0.051 ng/mL (< 0.028)
[2023-06-29 16:49] LABS: ALT (SGPT) 382 U/L (8-55); AST (SGOT) 125 U/L (5-34); Albumin 3.8 g/dL (3.4-4.8); Alkaline Phosphatase 76 U/L (40-110); Anion Gap 16 mmol/L (10-20); BUN (Urea Nitrogen) 22 mg/dL (8.4-25.7); Bilirubin, Total 4.2 mg/dL (0.2-1.2); Calc. Creatinine Clearance 0 mL/min (70-130); Calcium 8.9 mg/dL (7.8-10.44); Carbon Dioxide 22 mmol/L (23-31); Chloride 101 mmol/L (98-107); Estimated GFR 46; Globulin 2.7 g/dL (2.4-3.5); Glucose 113 mg/dL (80-115); Lipase 40 U/L (8-78); Protein, Total 6.5 g/dL (5.8-8.1); Sodium 135 mmol/L (136-145)
[2023-06-29 16:55] LABS: SARS-CoV-2 NAA Rapid Test Not Detected (NotDetected)
[2023-06-29] MEDS ORDERED: Ondansetron PF 4 MG/2 ML Vial IVP PRN (19:10)
[2023-06-29] MEDS ORDERED: Ondansetron ODT 4 MG TAB PO PRN (19:10)
[2023-06-29] MEDS ORDERED: Magnesium Citrate 300 ML BOT PO SCH (19:15)
[2023-06-29] MEDS ORDERED: Furosemide 40 MG/4 ML VIAL ONE (19:21)
[2023-06-29] MEDS ORDERED: Aspirin Chewable 81 MG TAB ONE (19:22)
[2023-06-29 20:15] LABS: Troponin I 0.061 ng/mL (< 0.028)
[2023-06-29] MEDS: Senokot S 8.6-50 MG TAB PO SCH (21:45)
[2023-06-29 21:53] VITALS: BMI 33.0
[2023-06-29 23:01] LABS: Troponin I 0.055 ng/mL (< 0.028)
[2023-06-30] MEDS ORDERED: Carvedilol 6.25 MG TAB PO SCH ×2 (03:15→08:00)
[2023-06-30 04:04] LABS: #Basophils 0.1 thou/uL (0.0-0.2); #Monocytes 0.7 thou/uL (0.11-0.59); #Neutrophils 8.7 thou/uL (1.40-6.50); %Basophils 0.5 % (0.0-1.0); %Lymphocytes 13.3 % (21.0-51.0); %Neutrophils 79.6 % (42.0-75.0); Hematocrit 46.9 % (42.0-52.0); Hemoglobin 15.1 g/dL (14.0-18.0); Mean Corpuscular HGB CONC 32.2 g/dL (32.0-36.0); Mean Corpuscular Volume 90.2 fl (78.0-98.0); Mean Platelet Volume 9.6 fL (7.4-10.4); Platelet Count 214 10x3/uL (130-400); RBC Distribution Width 17.3 % (11.5-14.5); White Blood Cell (WBC) Count 10.9 10x3/uL (4.8-10.8)
[2023-06-30 04:31] LABS: ALT (SGPT) 345 U/L (8-55); AST (SGOT) 86 U/L (5-34); Alkaline Phosphatase 73 U/L (40-110); Anion Gap 17 mmol/L (10-20); BUN (Urea Nitrogen) 21 mg/dL (8.4-25.7); Bilirubin, Total 3.9 mg/dL (0.2-1.2); Calc. Creatinine Clearance 52 mL/min (70-130); Carbon Dioxide 27 mmol/L (23-31); Chloride 101 mmol/L (98-107); Estimated GFR 42; Globulin 2.7 g/dL (2.4-3.5); Glucose 110 mg/dL (80-115); Potassium 3.6 mmol/L (3.5-5.1); Protein, Total 6.7 g/dL (5.8-8.1); Sodium 141 mmol/L (136-145)
[2023-06-30] MEDS ORDERED: Potassium Chloride 20 MEQ TAB PO SCH (08:00)
[2023-06-30] MEDS: Sacubitril 24MG/Valsartan 26 MG TAB PO SCH (08:55)
[2023-06-30] MEDS: Aspirin 81 mg Enteric Coated Tablet PO SCH (08:56)
[2023-06-30] MEDS: Senokot S 8.6-50 MG TAB PO SCH ×2 (08:56→21:05)
[2023-06-30] MEDS: Clopidogrel Bisulfate 75 MG TAB PO SCH (08:56)
[2023-06-30] MEDS: Spironolactone 25 MG TAB PO SCH (08:56)
[2023-06-30] MEDS: Carvedilol 6.25 MG TAB PO SCH ×3 (08:57→17:20)
[2023-06-30] MEDS ORDERED: Allopurinol 300 MG TAB PO SCH (09:00)
[2023-06-30] MEDS ORDERED: FLU VACC QS2023(65UP)/MF59C/PF 60 MCG/0.5 ML SYRINGE IM ONE (09:00)
[2023-06-30] MEDS: Furosemide 40 MG/4 ML VIAL SLOW IVP SCH ×2 (09:01→13:47)
[2023-07-01] MEDS ORDERED: guaiFENesin ER 600 MG TAB PO SCH (01:00)
[2023-07-01 02:01] LABS: %Basophils 0.4 % (0.0-1.0); %Lymphocytes 12.2 % (21.0-51.0); %Monocytes 10.1 % (0.0-10.0); %Neutrophils 76.8 % (42.0-75.0); Hematocrit 41.4 % (42.0-52.0); Hemoglobin 13.3 g/dL (14.0-18.0); Mean Corpuscular HGB CONC 32.1 g/dL (32.0-36.0); Mean Corpuscular Hemoglobin 29.7 pg (27.0-31.0); Mean Corpuscular Volume 92.4 fl (78.0-98.0); Mean Platelet Volume 9.5 fL (7.4-10.4); Platelet Count 176 10x3/uL (130-400); RBC Distribution Width 16.7 % (11.5-14.5); Red Blood Cell (RBC) Count 4.48 mill/uL (4.70-6.10); White Blood Cell (WBC) Count 8.1 10x3/uL (4.8-10.8)
[2023-07-01 02:02] LABS: #Monocytes 0.8 thou/uL (0.11-0.59); #Neutrophils 6.2 thou/uL (1.40-6.50)
[2023-07-01 04:29] LABS: ALT (SGPT) 221 U/L (8-55); AST (SGOT) 44 U/L (5-34); Albumin 3.5 g/dL (3.4-4.8); Alkaline Phosphatase 69 U/L (40-110); Anion Gap 17 mmol/L (10-20); BUN (Urea Nitrogen) 35 mg/dL (8.4-25.7); Calc. Creatinine Clearance 32 mL/min (70-130); Calcium 8.5 mg/dL (7.8-10.44); Carbon Dioxide 23 mmol/L (23-31); Chloride 100 mmol/L (98-107); Estimated GFR 24; Globulin 2.4 g/dL (2.4-3.5); Glucose 117 mg/dL (80-115); Magnesium 2.3 mg/dL (1.6-2.6); Potassium 3.9 mmol/L (3.5-5.1); Protein, Total 5.9 g/dL (5.8-8.1); Sodium 136 mmol/L (136-145)
[2023-07-01] MEDS: Furosemide 40 MG/4 ML VIAL SLOW IVP SCH (05:14)
[2023-07-01] MEDS: Ipratropium/Albuterol 3 ML NEB NEB PRN ×2 (05:31→23:14)
[2023-07-01] MEDS: Senokot S 8.6-50 MG TAB PO SCH ×2 (09:11→21:54)
[2023-07-01] MEDS: Aspirin 81 mg Enteric Coated Tablet PO SCH (09:11)
[2023-07-01] MEDS: guaiFENesin ER 600 MG TAB PO SCH ×2 (09:12→21:54)
[2023-07-01] MEDS: Clopidogrel Bisulfate 75 MG TAB PO SCH (09:12)
[2023-07-01] MEDS: Carvedilol 6.25 MG TAB PO SCH ×3 (09:13→17:56)
[2023-07-01] MEDS ORDERED: Loratadine 10 MG TAB PO SCH (11:30)
[2023-07-01] MEDS: Albumin 25% 25 GM/100 ML BOT IVPB SCH ×2 (12:22→17:55)
[2023-07-01] MEDS: methylPREDNISolone Sod Succ 40 MG VIAL IVP SCH ×2 (12:40→17:55)
[2023-07-01] MEDS: Ipratropium/Albuterol 3 ML NEB NEB SCH ×3 (13:14→23:12)
[2023-07-02] MEDS: Albumin 25% 25 GM/100 ML BOT IVPB SCH ×2 (00:08→05:47)
[2023-07-02] MEDS: methylPREDNISolone Sod Succ 40 MG VIAL IVP SCH ×5 (00:08→23:40)
[2023-07-02 05:03] LABS: ALT (SGPT) 134 U/L (8-55); AST (SGOT) 22 U/L (5-34); Albumin 4.2 g/dL (3.4-4.8); Alkaline Phosphatase 54 U/L (40-110); Anion Gap 18 mmol/L (10-20); BUN (Urea Nitrogen) 41 mg/dL (8.4-25.7); Calc. Creatinine Clearance 46 mL/min (70-130); Calcium 8.6 mg/dL (7.8-10.44); Carbon Dioxide 22 mmol/L (23-31); Chloride 99 mmol/L (98-107); Estimated GFR 37; Globulin 2.1 g/dL (2.4-3.5); Glucose 203 mg/dL (80-115); Magnesium 2.4 mg/dL (1.6-2.6); Potassium 3.7 mmol/L (3.5-5.1); Protein, Total 6.3 g/dL (5.8-8.1); Sodium 135 mmol/L (136-145)
[2023-07-02] MEDS: Ipratropium/Albuterol 3 ML NEB NEB SCH ×5 (07:45→23:35)
[2023-07-02] MEDS: Carvedilol 6.25 MG TAB PO SCH ×2 (08:40→18:06)
[2023-07-02] MEDS: Loratadine 10 MG TAB PO SCH (08:40)
[2023-07-02] MEDS: Aspirin 81 mg Enteric Coated Tablet PO SCH (08:40)
[2023-07-02] MEDS: Senokot S 8.6-50 MG TAB PO SCH ×2 (08:40→21:40)
[2023-07-02] MEDS: Clopidogrel Bisulfate 75 MG TAB PO SCH (08:40)
[2023-07-02] MEDS: guaiFENesin ER 600 MG TAB PO SCH ×2 (08:40→21:41)
[2023-07-02] MEDS ORDERED: Furosemide 40 MG/4 ML VIAL SLOW IVP SCH (10:15)
[2023-07-02] MEDS ORDERED: Amiodarone 200 MG TAB PO SCH (15:15)
[2023-07-02] MEDS: Mometasone 100 MCG/Formoterol 5 MCG 120 PUFF INHALER INH SCH (18:56)
[2023-07-03] MEDS: methylPREDNISolone Sod Succ 40 MG VIAL IVP SCH ×4 (05:43→23:37)
[2023-07-03 07:05] LABS: ALT (SGPT) 106 U/L (8-55); AST (SGOT) 22 U/L (5-34); Alkaline Phosphatase 49 U/L (40-110); Anion Gap 17 mmol/L (10-20); BUN (Urea Nitrogen) 46 mg/dL (8.4-25.7); Bilirubin, Total 1.8 mg/dL (0.2-1.2); Calc. Creatinine Clearance 50 mL/min (70-130); Calcium 8.9 mg/dL (7.8-10.44); Carbon Dioxide 25 mmol/L (23-31); Chloride 100 mmol/L (98-107); Estimated GFR 38; Globulin 2.2 g/dL (2.4-3.5); Glucose 147 mg/dL (80-115); Potassium 3.7 mmol/L (3.5-5.1); Protein, Total 6.2 g/dL (5.8-8.1); Sodium 138 mmol/L (136-145)
[2023-07-03] MEDS: Mometasone 100 MCG/Formoterol 5 MCG 120 PUFF INHALER INH SCH ×2 (07:16→21:23)
[2023-07-03] MEDS: Ipratropium/Albuterol 3 ML NEB NEB SCH ×4 (07:18→21:25)
[2023-07-03] MEDS: Aspirin 81 mg Enteric Coated Tablet PO SCH (08:59)
[2023-07-03] MEDS: Senokot S 8.6-50 MG TAB PO SCH ×2 (08:59→20:12)
[2023-07-03] MEDS: Furosemide 40 MG/4 ML VIAL SLOW IVP SCH (08:59)
[2023-07-03] MEDS: Clopidogrel Bisulfate 75 MG TAB PO SCH (09:00)
[2023-07-03] MEDS: guaiFENesin ER 600 MG TAB PO SCH ×2 (09:00→20:12)
[2023-07-03] MEDS: Loratadine 10 MG TAB PO SCH (09:00)
[2023-07-03] MEDS: Amiodarone 200 MG TAB PO SCH (09:00)
[2023-07-03] MEDS: Carvedilol 6.25 MG TAB PO SCH ×2 (09:00→16:41)
[2023-07-03 14:46] LABS: Free T4 (Free Thyroxine) 0.99 ng/dL (0.70-1.48)
[2023-07-03] MEDS ORDERED: Acetylcysteine 20% 200 MG/ML 30 ML VIAL INH SCH (17:00)
[2023-07-03] MEDS: Acetylcysteine 20% 200 MG/ML 30 ML VIAL INH SCH (21:26)
[2023-07-04 05:28] LABS: ALT (SGPT) 94 U/L (8-55); AST (SGOT) 24 U/L (5-34); Albumin 3.9 g/dL (3.4-4.8); Alkaline Phosphatase 48 U/L (40-110); Anion Gap 16 mmol/L (10-20); BUN (Urea Nitrogen) 50 mg/dL (8.4-25.7); Bilirubin, Total 1.8 mg/dL (0.2-1.2); Calc. Creatinine Clearance 59 mL/min (70-130); Calcium 8.5 mg/dL (7.8-10.44); Carbon Dioxide 26 mmol/L (23-31); Chloride 100 mmol/L (98-107); Estimated GFR 46; Globulin 2.1 g/dL (2.4-3.5); Glucose 141 mg/dL (80-115); Magnesium 2.4 mg/dL (1.6-2.6); Potassium 3.5 mmol/L (3.5-5.1); Sodium 138 mmol/L (136-145)
[2023-07-04] MEDS: Ipratropium/Albuterol 3 ML NEB NEB SCH ×3 (07:39→22:38)
[2023-07-04] MEDS: Mometasone 100 MCG/Formoterol 5 MCG 120 PUFF INHALER INH SCH ×2 (07:39→19:06)
[2023-07-04] MEDS: Acetylcysteine 20% 200 MG/ML 30 ML VIAL INH SCH ×3 (07:39→22:37)
[2023-07-04] MEDS ORDERED: Pantoprazole 40 MG GRANULES PACKET PO SCH (09:00)
[2023-07-04] MEDS ORDERED: Lansoprazole 3 MG/ML ORAL SUSPENSION PER TUBE SCH (09:00)
[2023-07-04] MEDS: methylPREDNISolone Sod Succ 40 MG VIAL IVP SCH ×2 (09:36→20:39)
[2023-07-04] MEDS: Carvedilol 6.25 MG TAB PO SCH ×2 (09:39→17:16)
[2023-07-04] MEDS: guaiFENesin ER 600 MG TAB PO SCH ×2 (09:46→20:39)
[2023-07-04] MEDS: Loratadine 10 MG TAB PO SCH (09:46)
[2023-07-04] MEDS: Clopidogrel Bisulfate 75 MG TAB PO SCH (09:46)
[2023-07-04] MEDS: Amiodarone 200 MG TAB PO SCH (09:46)
[2023-07-04] MEDS: Senokot S 8.6-50 MG TAB PO SCH ×2 (09:46→20:39)
[2023-07-04] MEDS: Aspirin 81 mg Enteric Coated Tablet PO SCH (09:47)
[2023-07-04] MEDS: Furosemide 40 MG/4 ML VIAL SLOW IVP SCH (12:06)
[2023-07-04 12:37] LABS: ANA Symphony (Qualitative) Negative (Negative); ANA Symphony (Quantitative) 0.1 Ratio (< 0.7 Negative); dsDNA IgG Antibody 0.8 IU/mL (<10 Negative)
[2023-07-04] MEDS: Ipratropium/Albuterol 3 ML NEB NEB PRN (19:05)
[2023-07-05] MEDS: Ipratropium/Albuterol 3 ML NEB NEB SCH ×3 (06:37→22:09)
[2023-07-05] MEDS: Acetylcysteine 20% 200 MG/ML 30 ML VIAL INH SCH ×3 (06:38→22:10)
[2023-07-05] MEDS: Mometasone 100 MCG/Formoterol 5 MCG 120 PUFF INHALER INH SCH ×2 (06:38→18:31)
[2023-07-05 08:50] LABS: Anion Gap 16 mmol/L (10-20); BUN (Urea Nitrogen) 43 mg/dL (8.4-25.7); Calc. Creatinine Clearance 61 mL/min (70-130); Calcium 8.7 mg/dL (7.8-10.44); Carbon Dioxide 26 mmol/L (23-31); Chloride 100 mmol/L (98-107); Estimated GFR 48; Glucose 176 mg/dL (80-115); Potassium 3.6 mmol/L (3.5-5.1); Sodium 138 mmol/L (136-145)
[2023-07-05] MEDS: Senokot S 8.6-50 MG TAB PO SCH ×2 (10:26→21:10)
[2023-07-05] MEDS: Spironolactone 25 MG TAB PO SCH (10:27)
[2023-07-05] MEDS: guaiFENesin ER 600 MG TAB PO SCH ×2 (10:27→21:10)
[2023-07-05] MEDS: Amiodarone 200 MG TAB PO SCH (10:27)
[2023-07-05] MEDS: Carvedilol 6.25 MG TAB PO SCH ×2 (10:28→18:01)
[2023-07-05] MEDS: Clopidogrel Bisulfate 75 MG TAB PO SCH (10:28)
[2023-07-05] MEDS: Aspirin 81 mg Enteric Coated Tablet PO SCH (10:28)
[2023-07-05] MEDS: Loratadine 10 MG TAB PO SCH (10:28)
[2023-07-05] MEDS: Lansoprazole 15 MG/5 ML (BATCHED)UDCUP PER TUBE SCH ×2 (10:29→10:30)
[2023-07-05] MEDS: Furosemide 40 MG/4 ML VIAL SLOW IVP SCH (10:31)
[2023-07-05] MEDS: methylPREDNISolone Sod Succ 40 MG VIAL IVP SCH (10:32)
[2023-07-05] MEDS: Ipratropium/Albuterol 3 ML NEB NEB PRN (18:30)
[2023-07-06] MEDS: Acetylcysteine 20% 200 MG/ML 30 ML VIAL INH SCH (06:39)
[2023-07-06] MEDS: Ipratropium/Albuterol 3 ML NEB NEB SCH ×3 (06:39→19:05)
[2023-07-06] MEDS: Mometasone 100 MCG/Formoterol 5 MCG 120 PUFF INHALER INH SCH ×2 (06:40→19:06)
[2023-07-06 08:00] LABS: Anion Gap 13 mmol/L (10-20); BUN (Urea Nitrogen) 42 mg/dL (8.4-25.7); Calc. Creatinine Clearance 60 mL/min (70-130); Calcium 8.9 mg/dL (7.8-10.44); Carbon Dioxide 32 mmol/L (23-31); Chloride 98 mmol/L (98-107); Estimated GFR 47; Glucose 88 mg/dL (80-115); Potassium 3.3 mmol/L (3.5-5.1); Sodium 140 mmol/L (136-145)
[2023-07-06] MEDS: Spironolactone 25 MG TAB PO SCH (08:44)
[2023-07-06] MEDS: predniSONE 20 MG TAB PO SCH (08:44)
[2023-07-06] MEDS: Carvedilol 6.25 MG TAB PO SCH ×2 (08:44→16:32)
[2023-07-06] MEDS: Aspirin 81 mg Enteric Coated Tablet PO SCH (08:45)
[2023-07-06] MEDS: Furosemide 40 MG/4 ML VIAL SLOW IVP SCH (08:45)
[2023-07-06] MEDS: Amiodarone 200 MG TAB PO SCH (08:45)
[2023-07-06] MEDS: guaiFENesin ER 600 MG TAB PO SCH ×2 (08:45→20:38)
[2023-07-06] MEDS: Clopidogrel Bisulfate 75 MG TAB PO SCH (08:45)
[2023-07-06] MEDS: Loratadine 10 MG TAB PO SCH (08:46)
[2023-07-06] MEDS: Senokot S 8.6-50 MG TAB PO SCH ×2 (08:46→20:38)
[2023-07-06] MEDS ORDERED: Potassium Chloride 20 MEQ TAB PO SCH (09:15)
[2023-07-06] MEDS: Sacubitril 24MG/Valsartan 26 MG TAB PO SCH (09:34)
[2023-07-06] MEDS: Lansoprazole 15 MG/5 ML (BATCHED)UDCUP PO SCH (10:04)
[2023-07-07 05:48] LABS: Anion Gap 14 mmol/L (10-20); BUN (Urea Nitrogen) 42 mg/dL (8.4-25.7); Calc. Creatinine Clearance 66 mL/min (70-130); Calcium 8.6 mg/dL (7.8-10.44); Carbon Dioxide 28 mmol/L (23-31); Chloride 99 mmol/L (98-107); Estimated GFR 59; Glucose 221 mg/dL (80-115); Magnesium 2.3 mg/dL (1.6-2.6); Potassium 3.5 mmol/L (3.5-5.1); Sodium 137 mmol/L (136-145)
[2023-07-07] MEDS: Mometasone 100 MCG/Formoterol 5 MCG 120 PUFF INHALER INH SCH (07:22)
[2023-07-07] MEDS: Ipratropium/Albuterol 3 ML NEB NEB SCH ×2 (07:23→14:53)
[2023-07-07] MEDS: Lansoprazole 15 MG/5 ML (BATCHED)UDCUP PO SCH (09:23)
[2023-07-07] MEDS: Carvedilol 6.25 MG TAB PO SCH (09:24)
[2023-07-07] MEDS: predniSONE 20 MG TAB PO SCH (09:24)
[2023-07-07] MEDS: Amiodarone 200 MG TAB PO SCH (09:25)
[2023-07-07] MEDS: Aspirin 81 mg Enteric Coated Tablet PO SCH (09:25)
[2023-07-07] MEDS: Spironolactone 25 MG TAB PO SCH (09:25)
[2023-07-07] MEDS: guaiFENesin ER 600 MG TAB PO SCH (09:26)
[2023-07-07] MEDS: Furosemide 40 MG/4 ML VIAL SLOW IVP SCH (09:26)
[2023-07-07] MEDS: Loratadine 10 MG TAB PO SCH (09:26)
[2023-07-07] MEDS: Clopidogrel Bisulfate 75 MG TAB PO SCH (09:26)
[2023-07-07] MEDS: Senokot S 8.6-50 MG TAB PO SCH (09:27)
[2023-07-07] MEDS: Sacubitril 24MG/Valsartan 26 MG TAB PO SCH (10:13)
[2023-07-07 12:33] VITALS: BP 100/70; TEMP 99.1
== END 2023-07-07 16:00 | disposition home or self-care (01) | DRG 291 ==
LOC: SUATTDRO 14:59 → ERS 14:59 → 2NO 18:44 → OBSVTOIN 06-30 13:41
PROVIDERS: ADMIT Family Medicine; ATTEND Family Medicine
PROC: 30233J1 Transfusion of Nonautologous Serum Albumin into Peripheral Vein, Percutaneous Approach (ICD-10-PCS; 2023-07-01)
PROC: 0CJS8ZZ Inspection of Larynx, Via Natural or Artificial Opening Endoscopic (ICD-10-PCS; principal; 2023-07-03)
DX: I13.0 Hypertensive heart and chronic kidney disease with heart failure and stage 1 through stage 4 chronic kidney disease, or unspecified chronic kidney disease (principal); I50.23 Acute on chronic systolic (congestive) heart failure; N17.9 Acute kidney failure, unspecified; E87.1 Hypo-osmolality and hyponatremia; E87.20 Acidosis, unspecified; I47.20 Ventricular tachycardia, unspecified; K59.00 Constipation, unspecified; I48.91 Unspecified atrial fibrillation; M10.9 Gout, unspecified; Z11.52 Encounter for screening for COVID-19; Z88.0 Allergy status to penicillin; Z79.82 Long term (current) use of aspirin; Z79.899 Other long term (current) drug therapy; Z98.890 Other specified postprocedural states; I25.5 Ischemic cardiomyopathy; Z95.810 Presence of automatic (implantable) cardiac defibrillator; N18.30 Chronic kidney disease, stage 3 unspecified; D72.829 Elevated white blood cell count, unspecified; J04.0 Acute laryngitis; T16.1XXA Foreign body in right ear, initial encounter; Z87.891 Personal history of nicotine dependence
CPT/HCPCS: 36415; 36416; 70490; 71045; 71046; 71250; 74177; 80048; 80053; 83690; 83735; 83880; 84439; 84443; 84481; 84484; 85025; 86038; 86225; 93005; 93306; 93798; 94640; 96372; 96374; 96375; 97139; G0378; J0132; J1650; J1940; J2270; J2920; J7512; J7620; P9047; Q9967

== ENCOUNTER → 2023-09-22 | Day surgery (SDC) | payer MEDICARE, OTHER ==
[2023-09-19 14:53] VITALS: BMI 30.7
[~2023-09-22] MED LIST changes: -Iopamidol-370 76% 500 ML MDV (1 ML CHARGE) ONE; +PROPOFOL 0 ML ONE; +PROPOFOL 20 ML ONE; +fentaNYL 50 mcg/mL 1 mL Vial ONE
[2023-09-22 09:18] LABS: Hematocrit 40.7 % (42.0-52.0); Hemoglobin 13.6 g/dL (14.0-18.0); Mean Corpuscular HGB CONC 33.4 g/dL (32.0-36.0); Mean Corpuscular Hemoglobin 29.4 pg (27.0-31.0); Mean Corpuscular Volume 88.1 fl (78.0-98.0); Mean Platelet Volume 8.6 fL (7.4-10.4); Platelet Count 296 10x3/uL (130-400); RBC Distribution Width 14.5 % (11.5-14.5); Red Blood Cell (RBC) Count 4.62 mill/uL (4.70-6.10); White Blood Cell (WBC) Count 8.7 10x3/uL (4.8-10.8)
[2023-09-22 09:30] LABS: INR-International Normal Ratio 1.1; Prothrombin Time 13.8 sec (12.0-14.7)
[2023-09-22 09:31] LABS: PTT 31.7 sec (22.9-36.1)
[2023-09-22 09:59] LABS: Anion Gap 15 mmol/L (10-20); BUN (Urea Nitrogen) 23 mg/dL (8.4-25.7); Calc. Creatinine Clearance 55 mL/min (70-130); Calcium 9.2 mg/dL (7.8-10.44); Carbon Dioxide 24 mmol/L (23-31); Chloride 105 mmol/L (98-107); Estimated GFR 49; Glucose 103 mg/dL (80-115); Potassium 4.6 mmol/L (3.5-5.1); Sodium 139 mmol/L (136-145)
== END ==
LOC: SDC 07:23
PROVIDERS: ATTEND Internal Medicine Cardiovascular Disease
PROC: B246ZZ4 Ultrasonography of Right and Left Heart, Transesophageal (ICD-10-PCS; principal; 2023-09-22)
DX: I48.19 Other persistent atrial fibrillation (principal); I42.0 Dilated cardiomyopathy; I13.0 Hypertensive heart and chronic kidney disease with heart failure and stage 1 through stage 4 chronic kidney disease, or unspecified chronic kidney disease; I50.42 Chronic combined systolic (congestive) and diastolic (congestive) heart failure; N18.30 Chronic kidney disease, stage 3 unspecified; I47.20 Ventricular tachycardia, unspecified; Z95.810 Presence of automatic (implantable) cardiac defibrillator; Z87.891 Personal history of nicotine dependence; Z79.82 Long term (current) use of aspirin; Z79.899 Other long term (current) drug therapy; Z88.0 Allergy status to penicillin
CPT/HCPCS: 80048; 85027; 85610; 85730; 93312; J3010; J2704

== ENCOUNTER 2024-03-26 13:09 | Outpatient (CLI) | payer MEDICARE, OTHER | END 2024-03-26 13:10 | disposition home or self-care (01) | LOC: CT 13:09 | PROVIDERS: ATTEND Orthopaedic Surgery | DX: M19.011 Primary osteoarthritis, right shoulder (principal); M25.811 Other specified joint disorders, right shoulder ==

== ENCOUNTER 2025-03-08 10:31 | Outpatient (CLI) | payer MEDICARE, OTHER | END 2025-03-08 10:32 | disposition home or self-care (01) | LOC: BICRAD 10:31 | PROVIDERS: ATTEND Internal Medicine Cardiovascular Disease | DX: I48.19 Other persistent atrial fibrillation (principal); Z92.29 Personal history of other drug therapy | CPT/HCPCS: 71046 ==